=== PATIENT | male | born 1945 | race Caucasian/White ===

== ENCOUNTER 2019-01-15 08:54 | Emergency (ER) | payer MEDICARE ==
[2019-01-15 09:14] VITALS: BP 138/95
[2019-01-15] MEDS ORDERED: LIDOCAINE 2% 10 ML MDV SUBQ STA (09:45)
--- NOTE | 2019-01-15 09:52 | ED Physician Documentation ---
History of Present Illness - Stated complaint Stated Complaint: LT PINKY PX - Chief complaint Chief Complaint: General - History obtained from History obtained from: Patient - History of Present Illness Pain level max: 4 Pain level now: 3 - Additonal information Additional information: 73-year-old male states that he accidentally caught his left pinky and a car door a few days ago. Now has redness and swelling to the cuticle. No fevers. Nothing makes it better or worse. 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/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 Derm: Skin cancer surgery - Present Medications Home Medications: Ambulatory Orders Medication Instructions Recorded Confirmed Atenolol 05/02/13 05/02/13 Ciprofloxacin [Cipro] 500 mg PO BID #20 tablet 05/02/13 Doxazosin [Cardura] 05/02/13 05/02/13 Omeprazole [PriLOSEC] 05/02/13 05/02/13 Simvastatin [Zocor] 05/02/13 05/02/13 amLODIPine [Norvasc] 05/02/13 05/02/13 Fluorouracil [Efudex] TOP 05/05/13 05/05/13 Clindamycin HCl [Clindamycin 300MG 300 mg PO Q6H #28 capsule 01/15/19 CAP] - Allergies Allergies/Adverse Reactions: Allergies Allergy/AdvReac Type Severity Reaction Status Date / Time Penicillins Allergy Severe Unknown Verified 05/02/13 21:10 - Social History Does the pt smoke?: No Smoking Status: Never smoker Does the pt drink ETOH?: Yes Does the pt have substance abuse?: No - Immunizations Immunizations are current?: Yes - POLST Patient has POLST: No POLST Status: Full Code PD ED PE NORMAL - Vitals Vital signs reviewed: Yes - General General: Alert and oriented X 3, No acute distress - HEENT HEENT: Moist mucous membranes - Derm Derm: Warm and dry - Extremities Extremities: Other (Left fifth digit with redness and swelling around the cuticle. NVI) - Neuro Neuro: Alert and oriented X 3 Results - Vitals Vitals: Vital Signs - 24 hr 01/15/19 09:12 Temperature 36.8 C Heart Rate 74 Respiratory 16 Rate Blood Pressure 138/95 H O2 Saturation 97 Oxygen O2 Source Room air Procedures - Abscess I&D (location) paronychia, L 5th digit Preparation: Lidocaine 2 % Incision: Incised with scalpel, Purulent drainage Other: Pt tolerated well, Dressing applied, Antibiotic prescribed PD MEDICAL DECISION MAKING - ED course Complexity details: considered differential, d/w patient ED course: Patient with a left fifth digit paronychia. Incised and drained. Tolerated well. Will place on antibiotics for home. Patient counseled regarding signs and symptoms for which I believe and urgent re-evaluation would be necessary. Patient with good understanding of and agreement to plan and is comfortable going home at this time This document was made in part using voice recognition software. While efforts are made to proofread this document, sound alike and grammatical errors may occur. Departure - Departure Disposition: 01 Home, Self Care Clinical Impression: Paronychia Condition: Good Instructions: ED Fingernail Infec Follow-Up: Provider,Other [Primary Care Provider] - Within 1 week Prescriptions: Clindamycin HCl [Clindamycin 300MG CAP] 300 mg PO Q6H #28 capsule Comments: Take all antibiotics until gone. Return if you worsen. You can use warm soaks 2-3 times a day as this will help to remove the infection. Discharge Date/Time: 01/15/19 10:06
== END 2019-01-15 10:06 | disposition home or self-care (01) ==
LOC: ED 08:54
DX: L03.012 Cellulitis of left finger (principal); I10 Essential (primary) hypertension
CPT/HCPCS: 26010

== ENCOUNTER 2019-06-09 15:53 | Emergency (ER) | payer MEDICARE ==
[2019-06-09 16:33] LABS: BASOPHILS % (AUTO) 0.5 %; EOSINOPHILS # (AUTO) 0.1 10^3/uL (0.0-0.7); EOSINOPHILS % (AUTO) 1.1 %; HGB - HEMOGLOBIN 16.8 g/dL (14.0-18.0); LYMPHOCYTES # (AUTO) 1.2 10^3/uL (1.5-3.5); LYMPHOCYTES % (AUTO) 15.9 %; MEAN CORPUSCULAR HEMOGLOBIN 33.7 pg (27.0-31.0); MEAN CORPUSCULAR HGB CONC 34.9 g/dL (32.0-36.0); MEAN CORPUSCULAR VOLUME 96.6 fL (80.0-94.0); MEAN PLATELET VOLUME 9.7 fL (7.4-11.4); MONOCYTES # (AUTO) 1.2 10^3/uL (0.0-1.0); MONOCYTES % (AUTO) 16.7 %; NEUTROPHILS # (AUTO) 4.8 10^3/uL (1.5-6.6); NEUTROPHILS % (AUTO) 65.1 %; PLT - PLATELET COUNT 146 10^3/uL (130-450); RED BLOOD COUNT 4.99 10^6/uL (4.70-6.10); RED CELL DISTRIBUTION WIDTH 13.1 % (12.0-15.0); WHITE BLOOD COUNT 7.4 x10^3/uL (4.8-10.8)
--- NOTE | 2019-06-09 16:34 | ED Physician Documentation ---
History of Present Illness - Stated complaint Stated Complaint: STROKE LIKE SYMPTOMS - Chief complaint Chief Complaint: Neuro - History obtained from History obtained from: Patient - Additonal information Additional information: Patient comes emergency department complaining of a possible stroke yesterday. Patient states that he woke up in the morning yesterday around 830 with a left temporal headache and noted that he was having difficulty trying to refill a prescription over the phone. He states that he also was having trouble looking things up on the computer because the task seemed confusing. Patient states that he did not have any focal weakness. He states he was able to move all of his extremities without difficulty, and seemed coordinated except that he felt somewhat lightheaded and had to be careful when he walked because of this. Patient denies any chest pain or shortness of breath. No facial droop, visual changes, or difficulty swallowing. He did note some difficulty and stuttering when trying to get his words out. Patient states that the symptoms lasted in earnest for about 6 hours and then began to slowly subside. He states that by the time he went to bed last night, he was feeling mostly back to normal. Today, patient states he has only a faint headache in his left hoahaoism but otherwise feels better. He states this is never happened to him before. He states the only other neurologic symptom he had venously was when he developed a mild headache and flashers in both of his eyes a couple of years ago. He states that episode lasted about 10 minutes and then resolved on its own. Patient is not on aspirin. He has a history of hypertension and hyperlipidemia. He states that his blood pressure is sometimes controlled with his current regimen of atenolol and amlodipine, but that he often runs high. The patient states he did not come in yesterday because he really did not want to come to the emergency department. He states he is here because his doctor told him that he was at risk of having another stroke and he should come get checked out. His doctor had him take an aspirin today, which the patient did. Review of Systems Ten Systems: 10 systems reviewed and negative Constitutional: reports: Reviewed and negative Eyes: reports: Reviewed and negative Ears: reports: Reviewed and negative Nose: reports: Reviewed and negative Throat: reports: Reviewed and negative Cardiac: reports: Reviewed and negative Respiratory: reports: Reviewed and negative GI: reports: Reviewed and negative : reports: Reviewed and negative Skin: reports: Reviewed and negative Musculoskeletal: reports: Reviewed and negative Neurologic: reports: Reviewed and negative Psychiatric: reports: Reviewed and negative Endocrine: reports: Reviewed and negative Immunocompromised: reports: Reviewed and negative PD PAST MEDICAL HISTORY - Past Medical History Cardiovascular: Hypertension, High cholesterol Respiratory: Pneumonia Endocrine/Autoimmune: None GI: GERD : Nocturia HEENT: None Psych: None Musculoskeletal: None Derm: None - Past Surgical History 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/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 Derm: Skin cancer surgery - Present Medications Home Medications: Ambulatory Orders Medication Instructions Recorded Confirmed Ciprofloxacin [Cipro] 500 mg PO BID #20 tablet 05/02/13 Doxazosin [Cardura] 05/02/13 05/02/13 Omeprazole [PriLOSEC] 05/02/13 05/02/13 Simvastatin [Zocor] 05/02/13 05/02/13 amLODIPine [Norvasc] 05/02/13 05/02/13 atenoloL [Atenolol] 05/02/13 05/02/13 Fluorouracil [Efudex] TOP 05/05/13 05/05/13 Clindamycin HCl [Clindamycin 300MG 300 mg PO Q6H #28 capsule 01/15/19 CAP] Aspirin Chewable [St Alvino 81 mg PO DAILY 60 Days #60 tablet 06/09/19 Aspirin] - Allergies Allergies/Adverse Reactions: Allergies Allergy/AdvReac Type Severity Reaction Status Date / Time Penicillins Allergy Severe Unknown Verified 06/09/19 16:06 - Social History Does the pt smoke?: No Smoking Status: Never smoker Does the pt drink ETOH?: Yes Does the pt have substance abuse?: No - Immunizations Immunizations are current?: Yes - POLST Patient has POLST: No POLST Status: Full Code PD ED PE NORMAL - Vitals Vital signs reviewed: Yes - General General: Alert and oriented X 3, No acute distress, Well developed/nourished - HEENT HEENT: Atraumatic, PERRL, EOMI, Moist mucous membranes - Neck Neck: Supple, no meningeal sign - Cardiac Cardiac: RRR, No murmur - Respiratory Respiratory: No respiratory distress, Clear bilaterally - Abdomen Abdomen: Soft, Non tender, Non distended - Derm Derm: Normal color, Warm and dry, No rash - Extremities Extremities: No deformity, No edema - Neuro Neuro: Alert and oriented X 3, dermatologist 2-12 intact, No motor deficit, No sensory deficit, Normal speech, Other (NIHSS 0) - Psych Psych: Normal mood, Normal affect Results - Vitals Vitals: Vital Signs - 24 hr 06/09/19 06/09/19 06/09/19 15:55 16:23 16:30 Temperature 36.3 C L Heart Rate 72 64 58 L Respiratory 16 16 16 Rate Blood Pressure 172/103 H 152/90 H 140/88 H O2 Saturation 99 98 97 06/09/19 06/09/19 17:14 18:22 Temperature Heart Rate 60 67 Respiratory 16 16 Rate Blood Pressure 144/84 H 139/78 H O2 Saturation 97 97 Oxygen O2 Source Room air - EKG (time done) 1605 Rate: Rate (enter#) (65) Rhythm: NSR [place]: Normal Intervals: Normal [place] QRS: Normal Ischemia: Other (Borderline ST elevation, anterolateral leads. No appearance of STEMI.) Compare to prior EKG: Old EKG unavailable Computer interpretation: Agree with computer - Labs Labs: Laboratory Tests 06/09/19 06/09/19 16:00 16:00 WBC 7.4 RBC 4.99 Hgb 16.8 Hct 48.2 MCV 96.6 H MCH 33.7 H MCHC 34.9 RDW 13.1 Plt Count 146 MPV 9.7 Neut # (Auto) 4.8 Lymph # (Auto) 1.2 L Tift # (Auto) 1.2 H Eos # (Auto) 0.1 Baso # (Auto) 0.0 Absolute Nucleated RBC 0.00 Nucleated RBC % 0.0 Sodium 126 L Potassium 4.1 Chloride 92 L Carbon Dioxide 25 Anion Gap 9.0 BUN 11 Creatinine 0.8 Estimated GFR (MDRD) 95 Glucose 98 Calcium 8.9 Total Bilirubin 0.9 AST 24 ALT 27 Alkaline Phosphatase 51 Total Protein 7.5 Albumin 4.5 Globulin 3.0 Albumin/Globulin Ratio 1.5 Lipase 16 L - Rads (name of study) carotid doppler US Radiology: Final report received, See rad report (Final radiologist impression: Right greater than left carotid bulb calcified; bilateral carotid artery plaquing. In the right carotid artery there are no elevated carotid artery velocities to suggest hemodynamically significant stenosis. In the left carotid artery there are no elevated carotid artery velocities to suggest hemodynamically significant stenosis. Normal antegrade flow is present in bilateral vertebral arteries.) CT brain Radiology: Final report received, EMP read indepedently, See rad report, Other (Final radiologist impression: Mild senescent changes without evidence of acute intracranial abnormality.) PD MEDICAL DECISION MAKING - ED course Complexity details: reviewed results, re-evaluated patient, considered differential, d/w patient ED course: Patient was asymptomatic at time of presentation to the emergency department, but I felt he should be worked up with CT scan of the head, as well as carotid imaging. Laboratory studies were also performed, as well as EKG. Labs were unremarkable. CT showed age-related changes but no evidence of recent ischemia. Carotid imaging by duplex ultrasound showed mild bilateral carotid artery plaquing, but no hemodynamically significant stenosis on either side. The patient was in normal sinus rhythm on his EKG and on his monitor reading for his entire stay in the ED, and had no murmur on exam. He did not know of any history of atrial fibrillation or other rhythm abnormalities at this point in time, and I felt it was very unlikely that the patient has a mural thrombus in his cardiac chambers. As such, I felt the patient could follow-up with his primary care physician to have this study ordered in the near future. The patient had been asymptomatic for nearly 24 hours. I discussed with him that at this point, the most important aspect of care is prevention. We have had a long discussion about specifics of this, including the need for the patient to take an aspirin every day and to get better control of his blood pressure, which has been running chronically high. The patient will need to work closely with his primary care physician to have a better regimen for blood pressure control. The patient states that he was on a higher dose of amlodipine, but it was causing swelling around his ankles, so the dose was decreased. I have also discussed with the patient that it is important to eat a diet that is low in cholesterol and trans-/saturated fats for cardiovascular health optimization. We discussed the benefits of exercise, even a 20-minute walk several days a week, on cardiovascular health, as well. I have encouraged the patient to work with his primary doctor to devise a plan to help improve his lifestyle so that he can optimize cardiovascular health and minimize chances of another stroke. I have also discussed with him that is very important if he has any further episodes like he had yesterday, that he come to the emergency department immediately for care, as early intervention can prevent permanence of symptoms. Departure - Departure Disposition: 01 Home, Self Care Clinical Impression: Stroke-like symptoms Condition: Stable Instructions: ED Transient Ischemic Attack Prescriptions: Aspirin Chewable [St Alvino Aspirin] 81 mg PO DAILY 60 Days #60 tablet Comments: Your labs and CT look good. There is no evidence of lasting damage from a stroke or stroke-like event. The ultrasound of your carotid arteries shows minimal narrowing of the arteries and good flow. You have a normal heart rhythm, and likelihood of a clot along the heart wall that has broken off and lodged in your brain circulation is unlikely. At this point in time, your symptoms have completely resolved, and admission to the hospital will not provide any further benefit. The most important aspect of your care at this point is to use preventative measures to decrease your risk of another stroke in the near or distant future. These include taking an aspirin each day, attaining good blood pressure control, and making lifestyle alterations in both diet and exercise to help with your cardiovascular health. You will need to follow up with your doctor in the near future to discuss the best steps to take in attaining better blood pressure control, as well as an analysis of any lifestyle factors that can be changed to optimize your health. For now, you will need to start aspirin on a daily basis in order to prevent further strokes. Please aim to incorporate even mild exercise (walking, swimming) into your day at least several times a week for at least 20 minutes a day, if you are able. Speak with your primary doctor about the best dietary plan for your cardiovascular health. If you develop further stroke-like symptoms, please return to the emergency dept immediately. Discharge Date/Time: 06/09/19 19:05
[2019-06-09 16:40] LABS: ALBUMIN 4.5 g/dL (3.2-5.5); ALBUMIN/GLOBULIN RATIO 1.5 (1.0-2.2); BILIRUBIN,TOTAL 0.9 mg/dL (0.2-1.0); CALCIUM 8.9 mg/dL (8.5-10.3); CREATININE 0.8 mg/dL (0.6-1.2); TOTAL PROTEIN 7.5 g/dL (6.7-8.2)
--- NOTE | 2019-06-09 17:31 | CT Report ---
Reason: stroke Procedure Date: 06/09/2019 Accession Number: [id number] / [id number] Procedure: CT - HEAD WO CPT Code: Final Report FULL RESULT: EXAM: CT HEAD EXAM DATE: 06/09/2019 04:51 PM. CLINICAL HISTORY: Stroke. Bilateral hand numbness. Left temporal headache. COMPARISON: None. TECHNIQUE: Multiaxial CT images were obtained from the foramen magnum to the vertex. Reformats: Sagittal and coronal. IV contrast: None. In accordance with CT protocol optimization, one or more of the following dose reduction techniques were utilized for this exam: automated exposure control, adjustment of mA and/or KV based on patient size, or use of iterative reconstructive technique. FINDINGS: Parenchyma: No intraparenchymal hemorrhage. No evidence of mass, midline shift or CT findings of acute infarction. Borrego-white differentiation is distinct. Diffuse mild chronic microangiopathic white matter changes are evident. Extraaxial Spaces: Normal for age. No subdural or epidural collections identified. Ventricles: The ventricles and cortical sulci are enlarged, consistent with age-related tissue loss. Sinuses: Imaged paranasal sinuses, orbits, and mastoids show no significant abnormality. Bones: No evidence of fracture or calvarial defect. Other: None. IMPRESSION: Mild senescent changes without evidence of acute intracranial abnormality. RADIA
[2019-06-09 18:23] VITALS: BP 139/78
--- NOTE | 2019-06-09 18:43 | Ultrasound Report ---
Reason: stroke Procedure Date: 06/09/2019 Accession Number: [id number] / [id number] Procedure: US - Carotid Doppler Complete CPT Code: Final Report FULL RESULT: EXAM: BILATERAL CAROTID AND VERTEBRAL ARTERY DUPLEX DOPPLER ULTRASOUND: EXAM DATE: 06/09/2019 06:04 PM CLINICAL HISTORY: Stroke. COMPARISON: None. TECHNIQUE: Grayscale imaging, color Doppler, and duplex spectral Doppler were used to evaluate the carotid and vertebral arteries bilaterally. Static images were obtained. FINDINGS: There is large calcified and shadowing plaque within the right carotid bulb. There is mild to moderate calcified plaque in the left carotid bulb and proximal internal carotid artery. There is mild right internal carotid plaque. No significant velocity elevation. VELOCITIES (cm/s): Right CCA mid: PSV 64.7 cm/s CCA dist: PSV 68.8 cm/s ICA prox: PSV 91.8 cm/s, EDV 21.5 cm/s ICA mid: PSV 92.8 cm/s, EDV 25.6 cm/s ICA dist: PSV 81.4 cm/s, EDV 22.1 cm/s ECA: PSV 86.6 cm/s Vert: PSV 41.7 cm/s ICA/CCA: 1.3 Left CCA mid: PSV 81.5 cm/s CCA dist: PSV 56.4 cm/s ICA prox: PSV 65.6 cm/s, EDV 19.1 cm/s ICA mid: PSV 70.6 cm/s, EDV 20 cm/s ICA dist: PSV 37.4 cm/s, EDV 10.7 cm/s ECA: PSV 142 cm/s Vert: PSV 60 cm/s ICA/CCA: .9 ICA diameter stenosis: Right: <50% by velocity and <70% by NASCET criteria. Left: <50% by velocity and <70% by NASCET criteria. IMPRESSION: 1. Right greater than left carotid bulb calcified bilateral carotid artery plaquing. 2. In the right carotid artery there are no elevated carotid artery velocities to suggest hemodynamically significant stenosis. 3. In the left carotid artery there are no elevated carotid artery velocities to suggest hemodynamically significant stenosis. 4. Normal antegrade flow is present in bilateral vertebral arteries. General Recommendations: Stenosis =50% ICA - Follow-up ultrasound 6-12 months Stenosis <50% ICA - High Risk Patient with plaque - Follow-up ultrasound 1-2 years Normal Study but High Risk Patient - Follow-up ultrasound 3-5 years Management recommendations and diagnostic criteria are based on current IAC endorsed standards in Carotid Artery Stenosis: Grayscale and Doppler Ultrasound Diagnosis. Validated velocity measurements with angiographic measurements and velocity criteria are extrapolated from diameter data as defined by the Society of Radiologists in Ultrasound Consensus Conference Radiology 2003; 229;340-346. RADIA
== END 2019-06-09 19:05 | disposition home or self-care (01) ==
LOC: ED 15:53
DX: R51 Headache (principal); R42 Dizziness and giddiness; R47.02 Dysphasia; I10 Essential (primary) hypertension
CPT/HCPCS: 36415; 70450; 80053; 83690; 85025; 93005; 93880; 99284

== ENCOUNTER 2023-04-23 21:28 | Outpatient (CLI) | payer MEDICARE | END 2023-04-23 21:29 | disposition critical access hospital (66) | LOC: EMS 21:28 | DX: R53.1 Weakness (principal); R53.83 Other fatigue; R05.9 Cough, unspecified; R53.81 Other malaise; R52 Pain, unspecified; R19.7 Diarrhea, unspecified | CPT/HCPCS: A0425; A0429 ==

== ENCOUNTER 2023-04-23 22:02 | Inpatient (IN) | payer MEDICARE ==
[2023-04-23 22:36] LABS: ALBUMIN 2.8 g/dL (3.2-5.5); ALBUMIN/GLOBULIN RATIO 0.8 (1.0-2.2); ALKALINE PHOSPHATASE 67 IU/L (42-121); ALT ALANINE AMINOTRANSFERASE 15 IU/L (10-60); AST ASPARTATE AMINOTRANSFERASE 17 IU/L (10-42); BUN - BLOOD UREA NITROGEN 19 mg/dL (6-20); CALCIUM 8.4 mg/dL (8.5-10.3); CARBON DIOXIDE - CO2 23 mmol/L (21-32); CHLORIDE 88 mmol/L (101-111); GFR - MDRD 72 (>89); GLUCOSE 103 mg/dL (74-104); LIPASE < 10 U/L (11-82); POTASSIUM 3.9 mmol/L (3.5-4.5); SODIUM 121 mmol/L (135-145); TOTAL PROTEIN 6.3 g/dL (6.4-8.9)
[2023-04-23] MEDS: SODIUM CHLORIDE 0.9% 1,000 ML IV STA (23:17)
[2023-04-23 23:23] LABS: EOSINOPHILS % (AUTO) 0.1 %; HGB - HEMOGLOBIN 13.6 g/dL (14.0-18.0); RED CELL DISTRIBUTION WIDTH 14.4 % (12.0-15.0)
[2023-04-23 23:25] LABS: B. PARAPERTUSSIS- RESP PCR PAN NOT DETECTED; B. PERTUSSIS- RESP PCR PANEL NOT DETECTED; C. PNEUMONIAE- RESP PCR PANEL NOT DETECTED; CORONAVIRUS 229E-RESP PCR NOT DETECTED; CORONAVIRUS HKU1-RESP PCR NOT DETECTED; CORONAVIRUS NL63-RESP PCR NOT DETECTED; CORONAVIRUS OC43-RESP PCR NOT DETECTED; HUMAN METAPNEUMOVIRUS NOT DETECTED; INFLUENZA A- RESP PCR PANEL NOT DETECTED; INFLUENZA B - RESP PCR PANEL NOT DETECTED; M. PNEUMONIAE- RESP PCR PANEL NOT DETECTED; PARAINFLUENZA VIRUS 1 NOT DETECTED; PARAINFLUENZA VIRUS 2 NOT DETECTED; PARAINFLUENZA VIRUS 3 NOT DETECTED; PARAINFLUENZA VIRUS 4 NOT DETECTED; RHINOVIRUS/ENTEROVIRUS DETECTED; RSV- RESP PCR PANEL NOT DETECTED; SARS-CoV-2 -RESP PCR PANEL NOT DETECTED
[2023-04-23 23:26] LABS: BASOPHILS % (AUTO) 0.4 %; HCT - HEMATOCRIT 38.2 % (42.0-52.0); LYMPHOCYTES % (AUTO) 3.3 %; MEAN CORPUSCULAR HEMOGLOBIN 32.6 pg (27.0-31.0); MEAN CORPUSCULAR HGB CONC 35.6 g/dL (32.0-36.0); MEAN CORPUSCULAR VOLUME 91.6 fL (80.0-94.0); MEAN PLATELET VOLUME 9.3 fL (7.4-11.4); PLT - PLATELET COUNT 319 10^3/uL (130-450); RED BLOOD COUNT 4.17 10^6/uL (4.70-6.10); WHITE BLOOD COUNT 15.3 x10^3/uL (4.8-10.8)
[2023-04-23 23:29] LABS: SLIDE REVIEW? Indicated
[2023-04-23 23:30] LABS: ABNORMAL LYMPHS % (MANUAL) 0 %
[2023-04-23 23:45] LABS: BAND NEUTROPHILS % (MANUAL) 12 %; DIFFERENTIAL COMMENT MANUAL DIFFERENTIAL; LYMPHOCYTES # (MANUAL) 0.5 10^3/uL (1.5-3.5); LYMPHOCYTES % (MANUAL) 3 %; MONOCYTES # (MANUAL) 0.5 10^3/uL (0.0-1.0); NEUTROPHILS # (MANUAL) 14.4 10^3/uL (1.5-6.6); PLATELET ESTIMATE, MANUAL NORMAL (130-450,000) (NORMAL); RBC MORPHOLOGY (MULTIPLE) NORMAL APPEARANCE (NORMAL); WBC MORPHOLOGY (MULTIPLE) 1+ TOXIC GRANULATION (NORMAL)
[2023-04-24] MEDS: SODIUM CHLORIDE 0.9% 1,000 ML IV STA ×3 (00:05→17:57)
[2023-04-24 01:25] LABS: BILIRUBIN,URINE NEGATIVE (NEGATIVE); GLUCOSE, URINE (UA) NEGATIVE (NEGATIVE); KETONES,URINE (UA) 15 mg/dL (NEGATIVE); LEUKOCYTE ESTERASE, URINE NEGATIVE (NEGATIVE); NITRITE,URINE NEGATIVE (NEGATIVE); OCCULT BLOOD,URINE MODERATE (NEGATIVE); PROTEIN,URINE NEGATIVE (NEGATIVE); UROBILINOGEN,URINE 0.2 (NORMAL) E.U./dL (NORMAL)
[2023-04-24 01:38] LABS: CLARITY,URINE CLEAR (CLEAR)
[2023-04-24 01:40] LABS: BACTERIA,URINE None Seen /HPF (None Seen); SQUAMOUS EPITHELIAL CELL,UR RARE Squamous (<= Few); WBC,URINE 0-3 /HPF (0-3)
[2023-04-24] MEDS: ACETAMINOPHEN 325 MG TABLET PO STA ×3 (02:26→16:38)
[2023-04-24] MEDS: SODIUM CHLORIDE 0.9% 500 ML IV STA (02:27)
[2023-04-24] MEDS: guaiFENesin/DEXTROMETHORPHAN 10 ML UDC PO STA (02:42)
--- NOTE | 2023-04-24 03:18 | ED Physician Documentation ---
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 patient was traveling in [place] for the past several weeks and returned today. he reportedly fell on the airplane but denies ht, loc, or anticoagulant use. denies fever. +myalgias Review of Systems Constitutional: reports: Chills, Myalgias, Fatigue. denies: Fever Ears: denies: Ear pain Nose: reports: Congestion Throat: reports: Sore throat Cardiac: denies: Chest pain / pressure Respiratory: reports: Cough. denies: Dyspnea GI: reports: Diarrhea. 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 HEENT: Tonsil/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 Derm: Skin cancer surgery - Present Medications Home Medications: Ambulatory Orders Medication Instructions Recorded Confirmed Ciprofloxacin [Cipro] 500 mg PO BID #20 tablet 05/02/13 Doxazosin [Cardura] 4 mg PO DAILY 05/02/13 04/24/23 Omeprazole [PriLOSEC] 20 mg PO DAILY 05/02/13 04/24/23 Simvastatin [Zocor] 5 mg PO DAILY 05/02/13 04/24/23 amLODIPine [Norvasc] 2.5 mg PO DAILY 05/02/13 04/24/23 atenoloL [Atenolol] 25 mg PO DAILY 05/02/13 04/24/23 Fluorouracil [Efudex] TOP 05/05/13 05/05/13 Clindamycin HCl [Clindamycin 300MG 300 mg PO Q6H #28 capsule 01/15/19 CAP] Aspirin Chewable [St Alvino 81 mg PO DAILY 60 Days #60 tablet 06/09/19 Aspirin] - Allergies Allergies/Adverse Reactions: Allergies Allergy/AdvReac Type Severity Reaction Status Date / Time Penicillins Allergy Severe Unknown Verified 04/23/23 22:15 - Social History Does the pt smoke?: No Smoking Status: Never smoker Does the pt drink ETOH?: Yes Does the pt have substance abuse?: No - Immunizations Immunizations are current?: Yes - POLST Patient has POLST: No POLST Status: Full Code PD ED PE NORMAL - Vitals Vital signs reviewed: Yes - General General: Alert and oriented X 3, No acute distress, Well developed/nourished - HEENT HEENT: Atraumatic, PERRL, EOMI, Moist mucous membranes, Pharynx benign - Neck Neck: Supple, no meningeal sign - Cardiac Cardiac: RRR - Respiratory Respiratory: No respiratory distress, Clear bilaterally - Abdomen Abdomen: Non tender, Non distended - Derm Derm: Normal color, Warm and dry - Extremities Extremities: No edema - Neuro Neuro: Alert and oriented X 3, No motor deficit, No sensory deficit Results - Vitals Vitals: Vital Signs - 24 hr 04/23/23 04/24/23 04/24/23 22:03 00:14 02:00 Temperature 36.6 C Heart Rate 90 110 H 87 Respiratory 18 18 16 Rate Blood Pressure 146/76 H 160/82 H 154/88 H O2 Saturation 98 95 98 Oxygen O2 Source Room air - Labs Labs: Laboratory Tests 04/23/23 04/23/23 04/23/23 22:13 22:13 22:13 WBC 15.3 H RBC 4.17 L Hgb 13.6 L Hct 38.2 L MCV 91.6 MCH 32.6 H MCHC 35.6 RDW 14.4 Plt Count 319 MPV 9.3 Neut # (Auto) Not Reportable Lymph # (Auto) Not Reportable [place] # (Auto) Not Reportable Eos # (Auto) Not Reportable Baso # (Auto) Not Reportable Absolute Nucleated RBC Not Reportable Total Counted 100 Band Neuts % (Manual) 12 H Abnorm Lymph % (Manual) 0 Nucleated RBC % Not Reportable Neutrophils # (Manual) 14.4 H Lymphocytes # (Manual) 0.5 L Monocytes # (Manual) 0.5 Eosinophils # (Manual) 0.0 Basophils # (Manual) 0.0 Differential Comment MANUAL DIFFERENTIAL Manual Slide Review Indicated WBC Morphology 1+ TOXIC GRANULATION Platelet Estimate NORMAL (130-450,000) RBC Morph Micro Appear NORMAL APPEARANCE Sodium 121 L Potassium 3.9 Chloride 88 L Carbon Dioxide 23 Anion Gap 10.0 BUN 19 Creatinine 1.0 Estimated GFR (MDRD) 72 L Glucose 103 Calcium 8.4 L Total Bilirubin 1.0 AST 17 ALT 15 Alkaline Phosphatase 67 Total Protein 6.3 L Albumin 2.8 L Globulin 3.5 Albumin/Globulin Ratio 0.8 L Lipase < 10 L Urine Color Urine Clarity Urine pH Ur Specific [place] Urine Protein Urine Glucose (UA) Urine Ketones Urine Occult Blood Urine Nitrite Urine Bilirubin Urine Urobilinogen Ur Leukocyte Esterase Urine RBC Urine WBC Ur Squamous Epith Cells Urine Bacteria Ur Microscopic Review Urine Culture Comments Nasal Adenovirus (PCR) NOT DETECTED Nasal B. parapertussis DNA (PCR) NOT DETECTED Nasal Coronavir 229E PCR NOT DETECTED Nasal Coronavir HKU1 PCR NOT DETECTED Nasal Coronavir NL63 PCR NOT DETECTED Nasal Coronavir OC43 PCR NOT DETECTED Nasal Enterovir/Rhinovir PCR DETECTED A Nasal Influenza B PCR NOT DETECTED Nasal Influenza A PCR NOT DETECTED Nasal Parainfluen 1 PCR NOT DETECTED Nasal Parainfluen 2 PCR NOT DETECTED Nasal Parainfluen 3 PCR NOT DETECTED Nasal Parainfluen 4 PCR NOT DETECTED Nasal RSV (PCR) NOT DETECTED Nasal B.pertussis DNA PCR NOT DETECTED Nasal C.pneumoniae (PCR) NOT DETECTED Robin Human Metapneumo PCR NOT DETECTED Nasal M.pneumoniae (PCR) NOT DETECTED Nasal SARS-CoV-2 (PCR) NOT DETECTED 04/24/23 04/24/23 00:55 02:56 WBC RBC Hgb Hct MCV MCH MCHC RDW Plt Count MPV Neut # (Auto) Lymph # (Auto) [place] # (Auto) Eos # (Auto) Baso # (Auto) Absolute Nucleated RBC Total Counted Band Neuts % (Manual) Abnorm Lymph % (Manual) Nucleated RBC % Neutrophils # (Manual) Lymphocytes # (Manual) Monocytes # (Manual) Eosinophils # (Manual) Basophils # (Manual) Differential Comment Manual Slide Review WBC Morphology Platelet Estimate RBC Morph Micro Appear Sodium 124 L Potassium Chloride Carbon Dioxide Anion Gap BUN Creatinine Estimated GFR (MDRD) Glucose Calcium Total Bilirubin AST ALT Alkaline Phosphatase Total Protein Albumin Globulin Albumin/Globulin Ratio Lipase Urine Color YELLOW Urine Clarity CLEAR Urine pH 6.0 Ur Specific [place] 1.010 Urine Protein NEGATIVE Urine Glucose (UA) NEGATIVE Urine Ketones 15 H Urine Occult Blood MODERATE H Urine Nitrite NEGATIVE Urine Bilirubin NEGATIVE Urine Urobilinogen 0.2 (NORMAL) Ur Leukocyte Esterase NEGATIVE Urine RBC 11-25 H Urine WBC 0-3 Ur Squamous Epith Cells RARE Squamous Urine Bacteria None Seen Ur Microscopic Review INDICATED Urine Culture Comments NOT INDICATED Nasal Adenovirus (PCR) Nasal B. parapertussis DNA (PCR) Nasal Coronavir 229E PCR Nasal Coronavir HKU1 PCR Nasal Coronavir NL63 PCR Nasal Coronavir OC43 PCR Nasal Enterovir/Rhinovir PCR Nasal Influenza B PCR Nasal Influenza A PCR Nasal Parainfluen 1 PCR Nasal Parainfluen 2 PCR Nasal Parainfluen 3 PCR Nasal Parainfluen 4 PCR Nasal RSV (PCR) Nasal B.pertussis DNA PCR Nasal C.pneumoniae (PCR) Robin Human Metapneumo PCR Nasal M.pneumoniae (PCR) Nasal SARS-CoV-2 (PCR) PD Medical Decision Making - ED course ED course: 77yM presents with viral URI symptoms X 3 weeks per his report while traveling internationally. cbc, abdominal panel, u/a, cxr, rvp ordered. patient with leukocytosis (wbc 15.3), enterovirus/rhinovirus + on pcr. also with sodium 121, which is lower than his usual baseline of 130. Given the diarrhea, consider dehydration as potential cause. 2.5L normal saline provided. plan to repeat sodium. Patient was provided with tylenol for body aches and guaifenesin/dextromethorphan for cough with improvement. cxr pending. Repeat sodium pending. Patient with persistent hyponatremia 124 s/p 2.5 L normal saline. additional 250cc/ hour ns ordered. CXR wet read shows bibasilar pneumonia. antibiotics and blood cultures/lactate ordered. No beds available therefore plan is to endorse to incoming daytime ED MD at 7am shift change to admit when a bed becomes available. Departure - Departure Clinical Impression: Rhinovirus, Enterovirus infection, Hyponatremia, Pneumonia Condition: Fair Instructions: Hyponatremia Dc, ED Viral Syndrome Comments: You were seen in the emergency department for rhinovirus/enterovirus infection. Your labwork showed a low sodium of 121, likely caused by dehydration in combination with your salt-wasting medical condition. Please follow-up with your primary care provider and return to the emergency department if you have any new or worsening symptoms or other concerns. Forms: PCP List
[2023-04-24] MEDS: levoFLOXacin 750 MG/150 ML 750 MG/150 ML BAG IV STA (05:04)
--- NOTE | 2023-04-24 08:23 | XRAY Report ---
PROCEDURE: Chest 1V INDICATIONS: cough TECHNIQUE: One view of the chest was acquired. COMPARISON: Chest/ribs radiographs 02/11/2009 FINDINGS: Surgical changes and devices: None. Lungs and pleura: Patchy opacities are seen in the mid to lower lung zones bilaterally with mild int erstitial prominence. Suspected small left pleural effusion. No right pleural effusion. No pneumothor ax. Mediastinum: Mediastinal contours appear normal. Heart size is normal. Bones and chest wall: No suspicious bony lesions. Overlying soft tissues appear unremarkable. IMPRESSION: Bibasilar opacities are suspicious for pneumonia, aspiration, or edema. Small left pleural effusion. There is no significant discrepancy when compared with the preliminary overnight report. Reviewed by: Harsh Laguna MD on 04/24/2023 8:22 AM [facility] Approved by: Harsh Laguna MD on 04/24/2023 8:22 AM [facility] Station ID: [id number]
[2023-04-24 11:42] LABS: CALCIUM 7.5 mg/dL (8.5-10.3); CREATININE 0.8 mg/dL (0.6-1.3); POTASSIUM 3.7 mmol/L (3.5-4.5)
[2023-04-24] MEDS: LOPERAMIDE 2 MG CAPSULE PO STA (17:27)
[2023-04-24] MEDS ORDERED: iohexoL-300 100 ML VIAL ONE (19:35)
--- NOTE | 2023-04-24 21:05 | CT Report ---
PROCEDURE: Angio Chest INDICATIONS: [place], tachycardic CONTRAST: 80mL Omni 300 TECHNIQUE: After the administration of intravenous contrast, 2 mm axial images were acquired from the pulmonary apices to the posterior costophrenic angles during the arterial phase. In addition, 1 mm lung kernel and 5 mm soft tissue kernel reconstructions were performed. 3-dimensional coronal oblique maximum int ensity projection (MIP) reformats, 8 mm axial MIP, and 5 mm coronal and sagittal MPR reformats were t hen performed through the thorax. For radiation dose reduction, the following was used: automated exp osure control, adjustment of mA and/or kV according to patient size. COMPARISON: Chest radiograph from earlier same day. FINDINGS: Image quality: Diagnostic. Study degraded by respiratory motion artifact. Large vessels: No filling defects within the opacified pulmonary arteries, accounting for motion and contrast timing. No evidence of acute aortic syndrome or aortic aneurysm. Lungs and pleura: Dense consolidation involving the bilateral lower lobes larger on the right with ai r bronchograms. Small bilateral pleural effusions, larger on the right. Compressive atelectasis. Patc hy consolidation involving the posterior aspect of the left upper lobe and right upper lobe. Similar finding in the right middle lobe. Perihilar airway thickening most pronounced in the bilateral lower lobes. No pneumothorax. Mediastinum: Heart size is normal. No pericardial effusion. No large vessel abnormality. No mediastin al adenopathy by size criteria. However, multiple reactive appearing lymph nodes are seen in the med iastinum and right hilar region. Atherosclerotic calcifications of the coronary arteries. Chest wall and lower neck: Thyroid is unremarkable. No axillary or supraclavicular adenopathy by size . Bones: No aggressive osseous abnormality. Upper Abdomen: Unremarkable. IMPRESSION: 1. No acute pulmonary embolus or evidence for acute right-sided heart strain. 2. Scattered bilateral consolidations most pronounced in the bilateral lower lobes. There is associat ed bilateral lower lobe airway thickening and air bronchograms. Small bilateral pleural effusions. Fi ndings may represent multiple focal pneumonia. Recommend follow-up chest CT 4-6 weeks after resolutio n of acute symptoms to document resolution. 3. Atherosclerosis. Reviewed by: Lazaro Duffy MD on 04/24/2023 9:04 PM PST Approved by: Laazro Duffy MD on 04/24/2023 9:04 PM PST Station ID: [id number]
[2023-04-24] MEDS: iohexoL-300 100 ML VIAL IVP ONE (21:26)
--- NOTE | 2023-04-24 22:56 | ED Physician Documentation ---
ED Addendum - Addendum Addendum: 04/24/23 22:47 Dr. Mulligan saw the patient during the day today and signed over care to me at 7pm shift change. CTA PE study was conducted and showed no PE but he does have multifocal pneumonia. He has been hypoxic intermittently during the day today and was 91% on RA when I discussed his CT results with him just now. Plan to admit for antibiotic and o2 monitoring. Disposition admit Condition fair Impression 1. multifocal pneumonia 2. rhinovirus/enterovirus 3. hypoxia 4. pleural effusion
--- NOTE | 2023-04-24 23:20 | HISTORY & PHYSICAL EXAMINATION ---
Chief Complaint - Chief Complaint Chief Complaint: weakness, falls, cough History of Present Illness - Admitted From Admitted From:: home - History Obtained From History obtained from: patient Exam Limitations: telemedicine - History of Present Illness HPI Comment/Other: Mr Flaherty is a 77 yo M with hx HTN, HLD, salt-wasting condition (details uncle ar, per patient he has chronic hyponatremia as a result). Presents to ER with complaints of generalized weakness, falls, cough. Onset 3 weeks ago. Started while he was in [place], returned Friday. He has been in the ER > 24 hours. He has been feeling tired, weak, de-sat to 89% on RA and placed on 2 L NC. He and his are both sick. 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 Pt reports he has been having chills, mild fever, denies n/v. Diarrhea x 1 week. He has not been on antibiotics. Denies cp, he does have shortness of breath. Pt states that he has difficulty with gait stability/balance at baseline. 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 HEENT: reports: Tonsil/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 Derm: reports: Skin cancer surgery - POLST Patient has POLST: No POLST Status: Full Code Meds/Allgy - Home Medications Home Medications: Ambulatory Orders Medication Instructions Recorded Confirmed Ciprofloxacin [Cipro] 500 mg PO BID #20 tablet 05/02/13 Doxazosin [Cardura] 4 mg PO DAILY 05/02/13 04/24/23 Simvastatin [Zocor] 5 mg PO DAILY 05/02/13 04/24/23 amLODIPine [Norvasc] 2.5 mg PO DAILY 05/02/13 04/24/23 atenoloL [Atenolol] 50 mg PO DAILY 05/02/13 04/24/23 Fluorouracil [Efudex] TOP 05/05/13 05/05/13 Clindamycin HCl [Clindamycin 300MG 300 mg PO Q6H #28 capsule 01/15/19 CAP] Aspirin Chewable [St Alvino 81 mg PO DAILY 60 Days #60 tablet 06/09/19 Aspirin] levoFLOXacin [Levofloxacin] 750 mg PO QDAC #14 tablet 04/24/23 - Allergies Allergies/Adverse Reactions: Allergies Allergy/AdvReac Type Severity Reaction Status Date / Time Penicillins Allergy Severe Unknown Verified 04/23/23 22:15 Review of Systems - Constitutional Constitutional: reports: Fatigue, Fever, Chills, Malaise, Weakness, Poor appetite. denies: Night sweats - Eyes Eyes: denies: Blurred vision - Ears, Nose & Throat Ears, Nose & Throat: denies: Ear pain, Hearing loss - Cardiovascular Cariovascular: reports: Palpitations, Lightheadedness, Exertional dyspnea. denies: Chest pain, Edema, Syncope - Respiratory Respiratory: reports: Cough, SOB at rest, SOB with exertion. denies: Sputum p roduction - Gastrointestinal Gastrointestinal: reports: Diarrhea. denies: Abdominal pain, Nausea, Vomiting - Genitourinary Genitourinary: denies: Dysuria, Frequency - Musculoskeletal Musculoskeletal: reports: Muscle aches - Integumentary Integumentary: denies: Rash, Pruritis - Neurological Neurological: reports: General weakness, Abnormal gait (baseline) - All Other Systems All Other Systems: reports: Reviewed and negative Exam - Vital Signs Reviewed Vital Signs: Yes Vital Signs: Vital Signs x48h Temp Pulse Resp BP Pulse Ox 04/24/23 19:20 84 20 147/74 H 97 04/24/23 19:00 100 20 156/87 H 95 04/24/23 18:15 100 20 141/100 H 97 04/24/23 17:57 112 H 25 H 90 L 04/24/23 16:22 36.5 C 04/24/23 16:00 80 15 178/82 H 98 - Physical Exam General Appearance: positive: No acute distress, Alert, Other (appears fatigued) Eyes Bilateral: positive: Normal inspection ENT: positive: ENT inspection nml Neck: positive: Nml inspection Respiratory: positive: Other (mild resp distress with speech noted) Skin: positive: Color nml, No rash Neurologic/Psychiatric: positive: Oriented x3, Mood/affect nml, Weakness Conclusion/Plan - Lab Results Lab results reviewed: Yes Fish Bones: 04/23/23 22:13 04/24/23 11:20 - Diagnostic Imaging Results Diagnostic Imaging Results: positive: Final report reviewed - Other Other Results/Comments: Acute hypoxic respiratory failure secondary to bilateral lower lobe community acquired pneumonia -Rhinovirus/Enterovirus + -Continue IV levaquin (tolerated, noted PCN allergy) -Follow up blood cultures -CTA neg for PE - f/u imaging in 6 weeks to ensure resolution -F/u procalcitonin -F/u CBC, BMP Chronic hyponatremia -Na 126, improved since being in ER -Continue gentle IVF hydration -Trend labs, repeat Na with a.m. labs HLD, statin HTN, BP elevated, resume home antihypertensives DVT ppx: Lovenox sc Full code Telemedicine Consult Details - Provider Location & Consult Time Telemedicine consultation conducted via videoconferencing?: Yes List names and roles of persons who participated in consult:: patient, Telemedicine provider location:: [place], [place]
[2023-04-24] MEDS ORDERED: SODIUM CHLORIDE FLUSH 0.9% 10 ML SYRINGE IVP PRN (23:31)
[2023-04-25] MEDS: SODIUM CHLORIDE 0.9% 1,000 ML IV SCH ×2 (01:13→14:59)
[2023-04-25] MEDS: SODIUM CHLORIDE FLUSH 0.9% 10 ML SYRINGE IVP SCH (01:15)
[2023-04-25] MEDS: guaiFENesin/DEXTROMETHORPHAN 10 ML UDC PO PRN (02:45)
[2023-04-25] MEDS: ACETAMINOPHEN 325 MG TABLET PO PRN (02:45)
[2023-04-25] MEDS: hydrALAZINE 10 MG TABLET PO ONE (02:45)
[2023-04-25 05:46] LABS: BASOPHILS % (AUTO) 0.2 %; EOSINOPHILS % (AUTO) 0.2 %; HGB - HEMOGLOBIN 12.5 g/dL (14.0-18.0); MEAN CORPUSCULAR HEMOGLOBIN 32.5 pg (27.0-31.0); MEAN CORPUSCULAR HGB CONC 36.8 g/dL (32.0-36.0); MEAN CORPUSCULAR VOLUME 88.3 fL (80.0-94.0); MEAN PLATELET VOLUME 8.8 fL (7.4-11.4); MONOCYTES % (AUTO) 5.9 %; NEUTROPHILS % (AUTO) 84.7 %; PLT - PLATELET COUNT 293 10^3/uL (130-450); RED BLOOD COUNT 3.85 10^6/uL (4.70-6.10); RED CELL DISTRIBUTION WIDTH 14.1 % (12.0-15.0); WHITE BLOOD COUNT 11.7 x10^3/uL (4.8-10.8)
[2023-04-25 06:05] LABS: ABNORMAL LYMPHS % (MANUAL) 0 %
[2023-04-25 06:11] LABS: ALBUMIN 2.4 g/dL (3.2-5.5); ALBUMIN/GLOBULIN RATIO 0.9 (1.0-2.2); BILIRUBIN,TOTAL 0.8 mg/dL (0.2-1.0); CALCIUM 7.5 mg/dL (8.5-10.3); CREATININE 0.8 mg/dL (0.6-1.3); POTASSIUM 3.5 mmol/L (3.5-4.5); TOTAL PROTEIN 5.2 g/dL (6.4-8.9)
[2023-04-25 06:17] LABS: BAND NEUTROPHILS % (MANUAL) 9 %; LYMPHOCYTES # (MANUAL) 0.1 10^3/uL (1.5-3.5); LYMPHOCYTES % (MANUAL) 1 %; MONOCYTES # (MANUAL) 0.4 10^3/uL (0.0-1.0); NEUTROPHILS # (MANUAL) 11.2 10^3/uL (1.5-6.6); PLATELET ESTIMATE, MANUAL NORMAL (130-450,000) (NORMAL); RBC MORPHOLOGY (MULTIPLE) NORMAL APPEARANCE (NORMAL)
[2023-04-25 06:18] LABS: DIFFERENTIAL COMMENT MANUAL DIFFERENTIAL
[2023-04-25] MEDS: atenoloL 25 MG TABLET PO SCH (08:58)
[2023-04-25] MEDS: ENOXAPARIN 40 MG/0.4 ML SYRINGE SUBQ SCH (08:58)
[2023-04-25] MEDS: guaiFENesin 600 MG TABLET PO SCH (08:58)
[2023-04-25] MEDS: levoFLOXacin 750 MG/150 ML 750 MG/150 ML BAG IV SCH (08:59)
[2023-04-25] MEDS ORDERED: amLODIPine 5 MG TABLET PO SCH (09:00)
[2023-04-25] MEDS ORDERED: SACCHAROMYCES BOULARDII 250 MG CAPSULE PO SCH (09:30)
--- NOTE | 2023-04-25 11:58 | PROVIDER PROGRESS NOTE ---
Assessment/Plan - Problem List (1) Orthostatic hypotension Assessment/Plan: He describes multiple falls while he has been feeling terrible the last few weeks. Most of the falls are onto his buttocks and he now has 8/10 sacral pain. Orthostatic vital signs were checked today and he has a 40 mmHg drop in systolic BP when he goes from supine to standing Plan: Continue with his Tamsulosin and atenolol but I we will move his amlodipine to nighttime Cont IV fluids, encourage oral fluids Echocardiogram ordered to evaluate for structural heart disease (however today is Friday and we have no fiber technician here until Friday) Check orthostatic vital signs daily (2) Fall at home Assessment/Plan: He describes multiple falls while he has been feeling terrible the last few weeks. All of the falls are onto his buttocks and he now has 8/10 "tailbone" pain. There were no images done in ED, besides his chest x-ray Plan: Will obtain CT of the pelvis Will provide pain meds as needed (3) Pneumonia Assessment/Plan: He has had a cough for many days and a fever and malaise. Chest x-ray abnormal and CT scan was read as having dense bilateral consolidations WBC has improved from 15 to 11 Plan: Will continue with empiric IV Levaquin Cont a probiotic Will order Mucinex for expectoration Await blood culture and sputum culture to tailor antibx (4) Enterovirus infection Assessment/Plan: Patient tested positive for enterovirus and rhinovirus. He did have diarrhea but that has now resolved since yesterday. He still has nasal congestion and has this cough Plan: If there is diarrhea, will test it for C diff Symptomatic treatment for these problems is planned with Tylenol as needed, Afrin as needed, Cepacol lozenges. No specific treatment is available for these viruses, this was explaine to pt and his spouse at bedside (5) Hyponatremia Assessment/Plan: ER note states that he runs "chronic hyponatremia" and etiology is not known. He does not take a salt tablet daily. I reviewed his chart, he runs sodium levels of 126-130 Chronic hyponatremia could be a reason for having had so many recent falls plus reason for having orthostasis now. The recent even lower sodium (121>> 124 yesterday) is probably from the several days of diarrhea he had. Na is 127 today (all labs were reviewed) Plan: Check urine sodium to evaluate for SIADH Continue with IV fluids containing NS Follow BMP daily (6) Hx of essential hypertension Assessment/Plan: Plan: I will put holding parameters for giving his BP meds - Current Meds Current Meds: Current Medications Generic Name Dose Route Start Last Admin Trade Name Freq PRN Reason Stop Dose Admin Acetaminophen 650 mg 04/25/23 02:12 04/25/23 09:19 Acetaminophen 325 Mg Tablet PO 650 mg Q4HR PRN Administration Pain or Fever > 38C (100.4F) Atenolol 50 mg 04/25/23 09:00 04/25/23 08:58 Atenolol 25 Mg Tablet PO 50 mg DAILY MATTHEW Administration Enoxaparin Sodium 40 mg 04/25/23 09:00 04/25/23 08:58 Enoxaparin 40 Mg/0.4 Ml Syringe SUBQ 40 mg DAILY MATTHEW Administration Guaifenesin 600 mg 04/25/23 09:00 04/25/23 08:58 Guaifenesin 600 Mg Tablet PO 600 mg BID MATTHEW Administration Levofloxacin 750 mg in 150 mls @ 100 mls/hr 04/25/23 09:00 04/25/23 08:59 Levaquin 750 Mg/150 Ml IV 100 mls/hr DAILY MATTHEW Administration Sodium Chloride 10 ml 04/25/23 01:00 04/25/23 08:59 Sodium Chloride Flush 0.9% 10 Ml Syringe IVP 10 ml 0100,0900,1700 MATTHEW Administration - Lab Result Fish Bone Diagrams: 04/25/23 05:33 04/25/23 05:33 - Additional Planning My Orders: My Active Orders 04/25/23 C DIFF PCR Stat 04/25/23 07:58 Infection Precautions [RC] QSHIFT Orthostatic [Vital Signs - Orthostatic] [RC] QSHIFT Sodium Chloride 0.9% [Normal Saline 0.9%] 1,000 ml IV 50 mls/hr 04/25/23 07:59 guaiFENesin/CODEINE [Robitussin AC] 5 ml PO Q6HR PRN 04/25/23 09:00 Doxazosin [Cardura] 4 mg PO DAILY amLODIPine [Norvasc] 2.5 mg PO DAILY atenoloL [Tenormin] 50 mg PO DAILY guaiFENesin [Mucinex] 600 mg PO BID 04/25/23 09:30 Saccharomyces Boulardii [Florastor] 250 mg PO BIDWM 04/25/23 10:30 CUL, RESPIRATORY [RM] Stat 04/25/23 21:00 Pravastatin [Pravachol] 10 mg PO QPM Subjective - Subjective Patient Reports: Shortness of Breath (Feels winded just walking from bed to chair, feels weak and lightheaded and very tired when upright, still has a cough, has hoarseness from many days of coughing) Objective Vital Signs: Vital Signs - 24 hr 04/24/23 04/24/23 04/24/23 12:00 14:00 16:00 Temperature Heart Rate 86 87 80 Heart Rate [ Radial] Respiratory 18 20 15 Rate Blood Pressure 148/78 H 173/63 H 178/82 H Blood Pressure [Right Brachial artery] O2 Saturation 96 96 98 If not protocol : Oxygen Flow, liters/minute 04/24/23 04/24/23 04/24/23 16:22 17:57 18:15 Temperature 36.5 C Heart Rate 112 H 100 Heart Rate [ Radial] Respiratory 25 H 20 Rate Blood Pressure 141/100 H Blood Pressure [Right Brachial artery] O2 Saturation 90 L 97 If not protocol : Oxygen Flow, liters/minute 04/24/23 04/24/23 04/24/23 19:00 19:20 21:00 Temperature Heart Rate 100 84 84 Heart Rate [ Radial] Respiratory 20 20 18 Rate Blood Pressure 156/87 H 147/74 H Blood Pressure [Right Brachial artery] O2 Saturation 95 97 91 L If not protocol : Oxygen Flow, liters/minute 04/24/23 04/25/23 04/25/23 23:00 00:00 01:07 Temperature Heart Rate 92 91 Heart Rate [ Radial] Respiratory 15 94 H Rate Blood Pressure 174/81 H 176/99 H Blood Pressure [Right Brachial artery] O2 Saturation 98 95 If not protocol 2 2 : Oxygen Flow, liters/minute 04/25/23 04/25/23 04/25/23 01:15 04:00 07:53 Temperature 37.5 C 36.8 C Heart Rate Heart Rate [ 103 H 99 Radial] Respiratory 28 H 14 Rate Blood Pressure Blood Pressure 174/95 H 160/95 H 188/99 H [Right Brachial artery] O2 Saturation 94 99 If not protocol 2 2 : Oxygen Flow, liters/minute 04/25/23 07:55 Temperature Heart Rate Heart Rate [ Radial] Respiratory Rate Blood Pressure Blood Pressure [Right Brachial artery] O2 Saturation If not protocol 2 : Oxygen Flow, liters/minute Oxygen O2 Source Nasal cannula Oxygen Flow Rate 2 I&O (Last 24 Hrs): Intake and Output Totals x24h 04/23/23 04/24/23 04/25/23 23:59 23:59 23:59 Intake Total 4650 820 Output Total 325 1225 Balance 4325 -405 General: Alert, Mild distress (Appears tired and weak), Other (Is disheveled) HEENT: Atraumatic, Other (Dry oral mucosa. His long hair and long theodore) Neck: Supple Neuro: Alert, Other (Has right lid lag, has intentional tremor of his hands.) Cardiovascular: Regular rate, No murmurs Respiratory: No respiratory distress, Rhonchi (at both bases) Abdomen: Soft, No tenderness, Other (Obese) Extremities: No edema, No tenderness/swelling - Results Results: Laboratory Results WBC 11.7 x10^3/uL (4.8-10.8) H 04/25/23 05:33 RBC 3.85 10^6/uL (4.70-6.10) L 04/25/23 05:33 Hgb 12.5 g/dL (14.0-18.0) L 04/25/23 05:33 Hct 34.0 % (42.0-52.0) L 04/25/23 05:33 MCV 88.3 fL (80.0-94.0) 04/25/23 05:33 MCH 32.5 pg (27.0-31.0) H 04/25/23 05:33 MCHC 36.8 g/dL (32.0-36.0) H 04/25/23 05:33 RDW 14.1 % (12.0-15.0) 04/25/23 05:33 Plt Count 293 10^3/uL (130-450) 04/25/23 05:33 MPV 8.8 fL (7.4-11.4) 04/25/23 05:33 Neut # (Auto) Not Reportable 04/25/23 05:33 Lymph # (Auto) Not Reportable 04/25/23 05:33 [place] # (Auto) Not Reportable 04/25/23 05:33 Eos # (Auto) Not Reportable 04/25/23 05:33 Baso # (Auto) Not Reportable 04/25/23 05:33 Absolute Nucleated RBC Not Reportable 04/25/23 05:33 Total Counted 100 04/25/23 05:33 Band Neuts % (Manual) 9 % (0-10) 04/25/23 05:33 Abnorm Lymph % (Manual) 0 % 04/25/23 05:33 Nucleated RBC % Not Reportable 04/25/23 05:33 Neutrophils # (Manual) 11.2 10^3/uL (1.5-6.6) H 04/25/23 05:33 Lymphocytes # (Manual) 0.1 10^3/uL (1.5-3.5) L 04/25/23 05:33 Monocytes # (Manual) 0.4 10^3/uL (0.0-1.0) 04/25/23 05:33 Eosinophils # (Manual) 0.0 10^3/uL (0-0.7) 04/25/23 05:33 Basophils # (Manual) 0.0 10^3/uL (0-0.1) 04/25/23 05:33 Differential Comment MANUAL DIFFERENTIAL 04/25/23 05:33 Manual Slide Review Indicated 04/23/23 22:13 WBC Morphology 1+ TOXIC GRANULATION (NORMAL) 04/23/23 22:13 Platelet Estimate NORMAL (130-450,000) (NORMAL) 04/25/23 05:33 RBC Morph Micro Appear NORMAL APPEARANCE (NORMAL) 04/25/23 05:33 Sodium 127 mmol/L (135-145) L 04/25/23 05:33 Potassium 3.5 mmol/L (3.5-4.5) 04/25/23 05:33 Chloride 98 mmol/L (101-111) L 04/25/23 05:33 Carbon Dioxide 22 mmol/L (21-32) 04/25/23 05:33 Anion Gap 7.0 (6-13) 04/25/23 05:33 BUN 13 mg/dL (6-20) 04/25/23 05:33 Creatinine 0.8 mg/dL (0.6-1.3) 04/25/23 05:33 Estimated GFR (MDRD) 94 (>89) 04/25/23 05:33 Glucose 102 mg/dL (74-104) 04/25/23 05:33 Lactic Acid 0.9 mmol/L (0.5-2.2) 04/24/23 04:57 Calcium 7.5 mg/dL (8.5-10.3) L 04/25/23 05:33 Total Bilirubin 0.8 mg/dL (0.2-1.0) 04/25/23 05:33 AST 16 IU/L (10-42) 04/25/23 05:33 ALT 14 IU/L (10-60) 04/25/23 05:33 Alkaline Phosphatase 54 IU/L (42-121) 04/25/23 05:33 Total Protein 5.2 g/dL (6.4-8.9) L 04/25/23 05:33 Albumin 2.4 g/dL (3.2-5.5) L 04/25/23 05:33 Globulin 2.8 g/dL (2.1-4.2) 04/25/23 05:33 Albumin/Globulin Ratio 0.9 (1.0-2.2) L 04/25/23 05:33 Lipase < 10 U/L (11-82) L 04/23/23 22:13 Procalcitonin Immunoas 0.13 ng/mL (<0.5) 04/25/23 05:33 Urine Color YELLOW 04/24/23 00:55 Urine Clarity CLEAR (CLEAR) 04/24/23 00:55 Urine pH 6.0 PH (5.0-7.5) 04/24/23 00:55 Ur Specific [place] 1.010 (1.002-1.030) 04/24/23 00:55 Urine Protein NEGATIVE mg/dL (NEGATIVE) 04/24/23 00:55 Urine Glucose (UA) NEGATIVE mg/dL (NEGATIVE) 04/24/23 00:55 Urine Ketones 15 mg/dL (NEGATIVE) H 04/24/23 00:55 Urine Occult Blood MODERATE (NEGATIVE) H 04/24/23 00:55 Urine Nitrite NEGATIVE (NEGATIVE) 04/24/23 00:55 Urine Bilirubin NEGATIVE (NEGATIVE) 04/24/23 00:55 Urine Urobilinogen 0.2 (NORMAL) E.U./dL (NORMAL) 04/24/23 00:55 Ur Leukocyte Esterase NEGATIVE (NEGATIVE) 04/24/23 00:55 Urine RBC 11-25 /HPF (0-5) H 04/24/23 00:55 Urine WBC 0-3 /HPF (0-3) 04/24/23 00:55 Ur Squamous Epith Cells RARE Squamous (<= Few) 04/24/23 00:55 Urine Bacteria None Seen /HPF (None Seen) 04/24/23 00:55 Ur Microscopic Review INDICATED 04/24/23 00:55 Urine Culture Comments NOT INDICATED 04/24/23 00:55 Urine Sodium 57.2 mmol/L 04/25/23 10:30 Nasal Adenovirus (PCR) NOT DETECTED 04/23/23 22:13 Nasal B. parapertussis DNA (PCR) NOT DETECTED 04/23/23 22:13 Nasal Coronavir 229E PCR NOT DETECTED 04/23/23 22:13 Nasal Coronavir HKU1 PCR NOT DETECTED 04/23/23 22:13 Nasal Coronavir NL63 PCR NOT DETECTED 04/23/23 22:13 Nasal Coronavir OC43 PCR NOT DETECTED 04/23/23 22:13 Nasal Enterovir/Rhinovir PCR DETECTED A 04/23/23 22:13 Nasal Influenza B PCR NOT DETECTED 04/23/23 22:13 Nasal Influenza A PCR NOT DETECTED 04/23/23 22:13 Nasal Parainfluen 1 PCR NOT DETECTED 04/23/23 22:13 Nasal Parainfluen 2 PCR NOT DETECTED 04/23/23 22:13 Nasal Parainfluen 3 PCR NOT DETECTED 04/23/23 22:13 Nasal Parainfluen 4 PCR NOT DETECTED 04/23/23 22:13 Nasal RSV (PCR) NOT DETECTED 04/23/23 22:13 Nasal B.pertussis DNA PCR NOT DETECTED 04/23/23 22:13 Nasal C.pneumoniae (PCR) NOT DETECTED 04/23/23 22:13 Robin Human Metapneumo PCR NOT DETECTED 04/23/23 22:13 Nasal M.pneumoniae (PCR) NOT DETECTED 04/23/23 22:13 Nasal SARS-CoV-2 (PCR) NOT DETECTED 04/23/23 22:13
--- NOTE | 2023-04-25 12:08 | PHARMACY PROGRESS NOTE ---
- Best Possible Medication History Admit Date and Time: 04/24/23 5770 Processed by: Nursing Medications reviewed in ED?: Yes Medication History completed: Yes Patient Interview: Completed Secondary Source(s): Insurance records As the person ultimately responsible for medication therapy, providers are able to order a medication from an existing home medication list in [facility] via the "Reconcile Routine" prior to Confirmation of that medication by it support specialist. Such practice is discouraged except when the physician, in their clinical judgment, deems that a medical need exists for a medication without regard to previous use.
[2023-04-25] MEDS: DOXAZOSIN 4 MG TABLET PO SCH (13:02)
--- NOTE | 2023-04-25 20:36 | CT Report ---
PROCEDURE: Pelvis WO INDICATIONS: Freq falls on buttocks, has sacral pain TECHNIQUE: Noncontrast 3 mm axial sections acquired through the bony pelvis, with coronal and sagittal reformatt ing. For radiation dose reduction, the following was used: automated exposure control, adjustment of mA and/or kV according to patient size. COMPARISON: None. FINDINGS: Image quality: Diagnostic. Bones: No acute fracture identified. Normal alignment of the bilateral hips. Moderate degenerative c hanges of the bilateral femoraoacetabular joints. Severe lower lumbar spondylosis of the imaged spine with levoscoliosis of the lower lumbar spine. No sacral fractures visualized. No suspicious osseous lesion. Degenerative changes of the bilateral sacroiliac joints without diastases. Visualized bony pe lvis is intact. Soft tissues: Prominent prostate gland. Small bilateral fat-containing inguinal hernias without acut e inflammation. No significant joint effusion. Urinary bladder appears unremarkable. Colonic divertic ulosis without acute diverticulitis. No pelvic sidewall adenopathy. No pathologic pelvic free fluid. IMPRESSION: CT pelvis without acute fracture of the bony pelvis, bilateral hips, lower lumbar spine, or sacrum. Reviewed by: Lazaro Duffy MD on 04/25/2023 8:35 PM PST Approved by: Lazaro Duffy MD on 04/25/2023 8:35 PM PST Station ID: [id number]
[2023-04-25] MEDS: amLODIPine 5 MG TABLET PO SCH (21:30)
[2023-04-25] MEDS: PRAVASTATIN 10 MG TABLET PO SCH (21:30)
[2023-04-26 05:43] LABS: BASOPHILS % (AUTO) 0.3 %; EOSINOPHILS % (AUTO) 0.3 %; HCT - HEMATOCRIT 35.1 % (42.0-52.0); HGB - HEMOGLOBIN 12.5 g/dL (14.0-18.0); LYMPHOCYTES # (AUTO) 0.6 10^3/uL (1.5-3.5); LYMPHOCYTES % (AUTO) 7.1 %; MEAN CORPUSCULAR HEMOGLOBIN 32.1 pg (27.0-31.0); MEAN CORPUSCULAR HGB CONC 35.6 g/dL (32.0-36.0); MEAN CORPUSCULAR VOLUME 90.2 fL (80.0-94.0); MEAN PLATELET VOLUME 8.8 fL (7.4-11.4); MONOCYTES # (AUTO) 0.7 10^3/uL (0.0-1.0); MONOCYTES % (AUTO) 8.5 %; NEUTROPHILS # (AUTO) 6.1 10^3/uL (1.5-6.6); NEUTROPHILS % (AUTO) 77.4 %; PLT - PLATELET COUNT 299 10^3/uL (130-450); RED BLOOD COUNT 3.89 10^6/uL (4.70-6.10); RED CELL DISTRIBUTION WIDTH 14.2 % (12.0-15.0); WHITE BLOOD COUNT 7.9 x10^3/uL (4.8-10.8)
[2023-04-26 05:59] LABS: MAGNESIUM 1.6 mg/dL (1.7-2.3)
[2023-04-26 06:05] LABS: CREATININE 0.9 mg/dL (0.6-1.3); POTASSIUM 3.5 mmol/L (3.5-4.5)
[2023-04-26 06:11] LABS: SLIDE REVIEW? Indicated
[2023-04-26 06:40] LABS: PLATELET ESTIMATE, MANUAL NORMAL (130-450,000) (NORMAL); PLATELET MORPHOLOGY NORMAL APPEARANCE (NORMAL)
[2023-04-26] MEDS: PANTOPRAZOLE 40 MG TABLET PO SCH (07:06)
--- NOTE | 2023-04-26 07:57 | PROVIDER PROGRESS NOTE ---
Assessment/Plan - Problem List (1) Orthostatic hypotension Assessment/Plan: He describes multiple falls while he has been feeling terrible the last few weeks. Orthostatic vital signs yest showed a 40 mmHg drop in systolic BP when he goes from supine to standing. Today there is a 30 mmHg drop in syst BP when he goes from supine to standing. Plan: He is not yet ready for discharge Cont IV fluids Continue giving his Tamsulosin for prostate, and Atenolol for supine HTN, and he took his Amlodipine at nighttime, which I would plan Echocardiogram ordered to evaluate for structural heart disease (however today is Friday and we have no tissue recovery technician here until Friday) Follow orthostatic vital signs q shift to adjust meds and fluids (2) Fall at home Assessment/Plan: He describes multiple falls while he has been feeling terrible the last few weeks. All of the falls are onto his buttocks and he now has 8/10 "tailbone" pain. There were no images done in ED, besides his chest x-ray. So I ordered pelvic CT which was done last night and there were no areas of fracture or dislocation found. Plan: Continue to manage his orthostatic hypotension Will provide pain meds as needed (3) Hyponatremia Assessment/Plan: ER note states that he runs "chronic hyponatremia" and etiology is not known. He does not take a salt tablet daily. I reviewed his entire chart, he runs sodium levels of 126-130 Chronic hyponatremia could be a reason for having had so many recent falls plus be part of the reason for having orthostasis now. The recent even lower sodium (121 at admission) is probably from the several days of diarrhea he had. He has been on IV NS and has the appropriate slow correction of serum sodium. 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 I think the reason is his craniotomy. Plan: I will start him on daily salt tablets I will start decreasing the IV NS over the next 24 to 48 hours When he is off salt NS I will see if he needs free water restriction (5) S/P Craniotomy Assessment/Plan: Yesterday it was learned from his spouse at bedside that the patient had a craniotomy for treating trigeminal neuralgia which was done when he lived in [place]. He has a scar behind his right ear. The surgery was successful and that he does not have lid lag or facial droop or blindness. Likely this craniotomy caused the SIADH (6) Hx of essential hypertension Assessment/Plan: Plan: I will put holding parameters for giving his BP meds (7) Community acquired pneumonia Assessment/Plan: He has had a cough for many days and a fever and malaise. Chest x-ray abnormal and CT scan was read as having dense bilateral consol idations WBC has improved from 15 to 11 Plan: Will continue with empiric IV Levaquin Cont a probiotic Will order Mucinex for expectoration Await blood culture and sputum culture to tailor antibx (8) Enterovirus/Rhinovirus infection Assessment/Plan: Patient tested positive for enterovirus and rhinovirus. He did have diarrhea but that has now resolved since yesterday. He still has nasal congestion and has this cough Plan: If there is diarrhea, will test it for C diff Symptomatic treatment for these problems is planned with Tylenol as needed, Afrin as needed, Cepacol lozenges. No specific treatment is available for these viruses, this was explaine to pt and his spouse at bedside - Current Meds Current Meds: Current Medications Generic Name Dose Route Start Last Admin Trade Name Freq PRN Reason Stop Dose Admin Acetaminophen 650 mg 04/25/23 02:12 04/25/23 21:33 Acetaminophen 325 Mg Tablet PO 650 mg Q4HR PRN Administration Pain or Fever > 38C (100.4F) Amlodipine Besylate 2.5 mg 04/25/23 21:00 04/25/23 21:30 Amlodipine 5 Mg Tablet PO 2.5 mg QPM MATTHEW Administration Atenolol 50 mg 04/25/23 09:00 04/25/23 08:58 Atenolol 25 Mg Tablet PO 50 mg DAILY MATTHEW Administration Doxazosin Mesylate 4 mg 04/25/23 09:00 04/25/23 13:02 Doxazosin 4 Mg Tablet PO 4 mg DAILY MATTHEW Administration Enoxaparin Sodium 40 mg 04/25/23 09:00 04/25/23 08:58 Enoxaparin 40 Mg/0.4 Ml Syringe SUBQ 40 mg DAILY MATTHEW Administration Guaifenesin 600 mg 04/25/23 09:00 04/25/23 21:30 Guaifenesin 600 Mg Tablet PO 600 mg BID MATTHEW Administration Levofloxacin 750 mg in 150 mls @ 100 mls/hr 04/25/23 09:00 04/25/23 10:30 Levaquin 750 Mg/150 Ml IV 04/28/23 10:29 Infused DAILY MATTHEW Infusion Sodium Chloride 1,000 mls @ 50 mls/hr 04/25/23 07:58 04/25/23 14:59 Normal Saline 0.9% IV 04/27/23 05:00 50 mls/hr .Q20H MATTHEW Administration Pantoprazole Sodium 40 mg 04/26/23 07:00 04/26/23 07:06 Pantoprazole 40 Mg Tablet PO 40 mg QDAC MATTHEW Administration Pravastatin Sodium 10 mg 04/25/23 21:00 04/25/23 21:30 Pravastatin 10 Mg Tablet PO 10 mg QPM MATTHEW Administration Sodium Chloride 10 ml 04/25/23 01:00 04/25/23 23:49 Sodium Chloride Flush 0.9% 10 Ml Syringe IVP 10 ml 0100,0900,1700 MATTHEW Administration - Lab Result Fish Bone Diagrams: 04/26/23 05:34 04/26/23 05:34 - Additional Planning My Orders: My Active Orders 04/25/23 07:58 Infection Precautions [RC] QSHIFT Orthostatic [Vital Signs - Orthostatic] [RC] QSHIFT Sodium Chloride 0.9% [Normal Saline 0.9%] 1,000 ml IV 50 mls/hr 04/25/23 07:59 guaiFENesin/CODEINE [Robitussin AC] 5 ml PO Q6HR PRN 04/25/23 09:00 Doxazosin [Cardura] 4 mg PO DAILY atenoloL [Tenormin] 50 mg PO DAILY guaiFENesin [Mucinex] 600 mg PO BID 04/25/23 10:30 CUL, RESPIRATORY [RM] Stat 04/25/23 21:00 Pravastatin [Pravachol] 10 mg PO QPM amLODIPine [Norvasc] 2.5 mg PO QPM 04/26/23 07:00 Pantoprazole [Protonix] 40 mg PO QDAC 04/26/23 08:00 Saccharomyces Boulardii [Florastor] 250 mg PO BIDWM 04/26/23 09:00 Sodium Chloride [Salt Tab] 1 gm PO DAILY Subjective - Subjective Patient Reports: Feeling Better (Less fatigued, less cough, still very hoarse, was dizzy when stood for orthostatic VS checks) Objective Vital Signs: Vital Signs - 24 hr 04/25/23 04/25/23 04/25/23 13:00 15:30 15:33 Temperature 37.1 C Heart Rate [ 78 Radial] Heart Rate [ 81 81 Sitting] Heart Rate [ 91 91 Standing] Respiratory 22 Rate Blood Pressure 150/90 H [Right Brachial artery] Blood Pressure 162/92 H 162/92 H [Sitting] Blood Pressure 150/91 H 150/91 H [Standing] O2 Saturation 97 O2 Saturation [ 97 Sitting] If not protocol 1 : Oxygen Flow, liters/minute 04/25/23 04/25/23 04/26/23 19:40 20:40 00:11 Temperature 37.3 C 36.9 C Heart Rate [ 79 78 Radial] Heart Rate [ Sitting] Heart Rate [ Standing] Respiratory 22 20 Rate Blood Pressure 171/96 H 155/85 H [Right Brachial artery] Blood Pressure [Sitting] Blood Pressure [Standing] O2 Saturation 98 97 O2 Saturation [ Sitting] If not protocol 2.5 2.5 2.5 : Oxygen Flow, liters/minute 04/26/23 04/26/23 05:10 07:38 Temperature 37.0 C 37.2 C Heart Rate [ 76 80 Radial] Heart Rate [ Sitting] Heart Rate [ Standing] Respiratory 22 16 Rate Blood Pressure 169/89 H 164/89 H [Right Brachial artery] Blood Pressure [Sitting] Blood Pressure [Standing] O2 Saturation 98 98 O2 Saturation [ Sitting] If not protocol 2.5 2 : Oxygen Flow, liters/minute Oxygen O2 Source Nasal cannula Oxygen Flow Rate 2 I&O (Last 24 Hrs): Intake and Output Totals x24h 04/24/23 04/25/23 04/26/23 23:59 23:59 23:59 Intake Total 4650 2320.000 800 Output Total 325 1675 2075 Balance 4325 645.000 -1275 General: Alert, Mild distress (From hoarseness and weakness) HEENT: EOMI, Mucous membr. moist/pink Neck: Supple, No JVD Neuro: Alert, Non Focal, Other (Memory improved, and is much more talkative then yesterday) Cardiovascular: Regular rate, No murmurs Respiratory: No respiratory distress, Rhonchi (at both bases) Abdomen: Soft, No tenderness, Other (Obese) Extremities: No edema, No tenderness/swelling - Results Results: Laboratory Results WBC 7.9 x10^3/uL (4.8-10.8) 04/26/23 05:34 RBC 3.89 10^6/uL (4.70-6.10) L 04/26/23 05:34 Hgb 12.5 g/dL (14.0-18.0) L 04/26/23 05:34 Hct 35.1 % (42.0-52.0) L 04/26/23 05:34 MCV 90.2 fL (80.0-94.0) 04/26/23 05:34 MCH 32.1 pg (27.0-31.0) H 04/26/23 05:34 MCHC 35.6 g/dL (32.0-36.0) 04/26/23 05:34 RDW 14.2 % (12.0-15.0) 04/26/23 05:34 Plt Count 299 10^3/uL (130-450) 04/26/23 05:34 MPV 8.8 fL (7.4-11.4) 04/26/23 05:34 Neut # (Auto) 6.1 10^3/uL (1.5-6.6) 04/26/23 05:34 Lymph # (Auto) 0.6 10^3/uL (1.5-3.5) L 04/26/23 05:34 [place] # (Auto) 0.7 10^3/uL (0.0-1.0) 04/26/23 05:34 Eos # (Auto) 0.0 10^3/uL (0.0-0.7) 04/26/23 05:34 Baso # (Auto) 0.0 10^3/uL (0.0-0.1) 04/26/23 05:34 Absolute Nucleated RBC 0.00 x10^3/uL 04/26/23 05:34 Total Counted 100 04/25/23 05:33 Band Neuts % (Manual) 9 % (0-10) 04/25/23 05:33 Abnorm Lymph % (Manual) 0 % 04/25/23 05:33 Nucleated RBC % 0.0 /100WBC 04/26/23 05:34 Neutrophils # (Manual) 11.2 10^3/uL (1.5-6.6) H 04/25/23 05:33 Lymphocytes # (Manual) 0.1 10^3/uL (1.5-3.5) L 04/25/23 05:33 Monocytes # (Manual) 0.4 10^3/uL (0.0-1.0) 04/25/23 05:33 Eosinophils # (Manual) 0.0 10^3/uL (0-0.7) 04/25/23 05:33 Basophils # (Manual) 0.0 10^3/uL (0-0.1) 04/25/23 05:33 Differential Comment MANUAL DIFFERENTIAL 04/25/23 05:33 Manual Slide Review Indicated 04/26/23 05:34 WBC Morphology 1+ TOXIC GRANULATION (NORMAL) 04/23/23 22:13 Platelet Estimate NORMAL (130-450,000) (NORMAL) 04/26/23 05:34 Platelet Morphology NORMAL APPEARANCE (NORMAL) 04/26/23 05:34 RBC Morph Micro Appear NORMAL APPEARANCE (NORMAL) 04/25/23 05:33 Sodium 131 mmol/L (135-145) L 04/26/23 05:34 Potassium 3.5 mmol/L (3.5-4.5) 04/26/23 05:34 Chloride 97 mmol/L (101-111) L 04/26/23 05:34 Carbon Dioxide 25 mmol/L (21-32) 04/26/23 05:34 Anion Gap 9.0 (6-13) 04/26/23 05:34 BUN 10 mg/dL (6-20) 04/26/23 05:34 Creatinine 0.9 mg/dL (0.6-1.3) 04/26/23 05:34 Estimated GFR (MDRD) 82 (>89) L 04/26/23 05:34 Glucose 95 mg/dL (74-104) 04/26/23 05:34 Lactic Acid 0.9 mmol/L (0.5-2.2) 04/24/23 04:57 Calcium 8.0 mg/dL (8.5-10.3) L 04/26/23 05:34 Magnesium 1.6 mg/dL (1.7-2.3) L 04/26/23 05:34 Total Bilirubin 0.8 mg/dL (0.2-1.0) 04/25/23 05:33 AST 16 IU/L (10-42) 04/25/23 05:33 ALT 14 IU/L (10-60) 04/25/23 05:33 Alkaline Phosphatase 54 IU/L (42-121) 04/25/23 05:33 Total Protein 5.2 g/dL (6.4-8.9) L 04/25/23 05:33 Albumin 2.4 g/dL (3.2-5.5) L 04/25/23 05:33 Globulin 2.8 g/dL (2.1-4.2) 04/25/23 05:33 Albumin/Globulin Ratio 0.9 (1.0-2.2) L 04/25/23 05:33 Lipase < 10 U/L (11-82) L 04/23/23 22:13 Procalcitonin Immunoas 0.13 ng/mL (<0.5) 04/25/23 05:33 Urine Color YELLOW 04/24/23 00:55 Urine Clarity CLEAR (CLEAR) 04/24/23 00:55 Urine pH 6.0 PH (5.0-7.5) 04/24/23 00:55 Ur Specific [place] 1.010 (1.002-1.030) 04/24/23 00:55 Urine Protein NEGATIVE mg/dL (NEGATIVE) 04/24/23 00:55 Urine Glucose (UA) NEGATIVE mg/dL (NEGATIVE) 04/24/23 00:55 Urine Ketones 15 mg/dL (NEGATIVE) H 04/24/23 00:55 Urine Occult Blood MODERATE (NEGATIVE) H 04/24/23 00:55 Urine Nitrite NEGATIVE (NEGATIVE) 04/24/23 00:55 Urine Bilirubin NEGATIVE (NEGATIVE) 04/24/23 00:55 Urine Urobilinogen 0.2 (NORMAL) E.U./dL (NORMAL) 04/24/23 00:55 Ur Leukocyte Esterase NEGATIVE (NEGATIVE) 04/24/23 00:55 Urine RBC 11-25 /HPF (0-5) H 04/24/23 00:55 Urine WBC 0-3 /HPF (0-3) 04/24/23 00:55 Ur Squamous Epith Cells RARE Squamous (<= Few) 04/24/23 00:55 Urine Bacteria None Seen /HPF (None Seen) 04/24/23 00:55 Ur Microscopic Review INDICATED 04/24/23 00:55 Urine Culture Comments NOT INDICATED 04/24/23 00:55 Urine Sodium 57.2 mmol/L 04/25/23 10:30 Nasal Adenovirus (PCR) NOT DETECTED 04/23/23 22:13 Nasal B. parapertussis DNA (PCR) NOT DETECTED 04/23/23 22:13 Nasal Coronavir 229E PCR NOT DETECTED 04/23/23 22:13 Nasal Coronavir HKU1 PCR NOT DETECTED 04/23/23 22:13 Nasal Coronavir NL63 PCR NOT DETECTED 04/23/23 22:13 Nasal Coronavir OC43 PCR NOT DETECTED 04/23/23 22:13 Nasal Enterovir/Rhinovir PCR DETECTED A 04/23/23 22:13 Nasal Influenza B PCR NOT DETECTED 04/23/23 22:13 Nasal Influenza A PCR NOT DETECTED 04/23/23 22:13 Nasal Parainfluen 1 PCR NOT DETECTED 04/23/23 22:13 Nasal Parainfluen 2 PCR NOT DETECTED 04/23/23 22:13 Nasal Parainfluen 3 PCR NOT DETECTED 04/23/23 22:13 Nasal Parainfluen 4 PCR NOT DETECTED 04/23/23 22:13 Nasal RSV (PCR) NOT DETECTED 04/23/23 22:13 Nasal B.pertussis DNA PCR NOT DETECTED 04/23/23 22:13 Nasal C.pneumoniae (PCR) NOT DETECTED 04/23/23 22:13 Robin Human Metapneumo PCR NOT DETECTED 04/23/23 22:13 Nasal M.pneumoniae (PCR) NOT DETECTED 04/23/23 22:13 Nasal SARS-CoV-2 (PCR) NOT DETECTED 04/23/23 22:13
[2023-04-26] MEDS: SACCHAROMYCES BOULARDII 250 MG CAPSULE PO SCH (08:25)
[2023-04-26] MEDS: SODIUM CHLORIDE 1 GM TABLET PO SCH (08:26)
--- NOTE | 2023-04-27 11:10 | PROVIDER PROGRESS NOTE ---
Assessment/Plan - Problem List (1) Orthostatic hypotension Assessment/Plan: He describes multiple falls while he has been feeling terrible the last few weeks. Orthostatic vital signs showed a 40 mmHg drop in systolic BP on 04/25, and a 30 mmHg drop in syst BP on 04/26. Today he has better BP but still gets tachycrdic when standing Plan: He is not yet ready for discharge Cont IV fluids Continue giving his Tamsulosin for prostate, and Atenolol for supine HTN, and he took his Amlodipine at nighttime, which I ordered Echocardiogram ordered to evaluate for structural heart disease (however today is Friday and we have no instrument and controls technician here until Friday) Follow orthostatic vital signs q shift to adjust meds and fluids (2) Infection due to beta-hemolytic Streptococcus Assessment/Plan: His sputum culture is growing 2 organisms. The first 1 has been identified as beta-hemolytic Streptococcus, group F Sensitivities are not normally done to this bacteria which is normally susceptible to penicillins, etc. Plan: Will continue with empiric IV Levaquin and adjust to po antibx when final sens are back (3) Community acquired pneumonia Assessment/Plan: He had a cough for many days w/ a fever and malaise before adm Chest x-ray was abnormal and CT scan was read as having dense bilateral consolidations WBC has improved from 15 >> 11 >> 7.9 (all labs were reviewed) Plan: Will continue with empiric IV Levaquin Cont a probiotic Cont Mucinex for expectoration Await blood culture results and sputum culture details to tailor antibx (4) Fall at home Assessment/Plan: He describes multiple falls while he has been feeling terrible the last few weeks. All of the falls are onto his buttocks and he now has 8/10 "tailbone" pain. There were no images done in ED, besides his chest x-ray. So I ordered pelvic CT which was done last night and there were no areas of fracture or dislocation found. Plan: Continue to manage his orthostatic hypotension Will provide pain meds as needed. Will also try Lidocaine 4% patch applied to the tailbone (5) Hyponatremia Assessment/Plan: ER note states that he runs "chronic hyponatremia" and etiology is not known. He does not take a salt tablet daily. I reviewed his entire chart, he runs sodium levels of 126-130. Chronic hyponatremia could be a reason for having had so many recent falls plus be part of the reason for having orthostasis now. His sodium of 121 at admission was probably from the several days of diarrhea he had. He has been on IV NS and has the appropriate slow correction of serum sodium. 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 I think the reason is his craniotomy. Plan: Cont daily salt tablets Cont decreasing the IV NS over the next 24 to 48 hours When he is off iv NS, I will see if he needs free water restriction (7) S/P Craniotomy Assessment/Plan: I learned from his spouse at bedside that the patient had a craniotomy for treating trigeminal neuralgia which was done when he lived in [place]. He has a scar behind his right ear. The surgery was successful in that he does not have lid lag or facial droop or blindness or pain. I suspect the craniotomy caused him to have SIADH. (8) Hx of essential hypertension Assessment/Plan: Plan: BP meds resumed with holding parameters for giving his BP meds (9) Enterovirus/Rhinovirus infection Assessment/Plan: Patient tested positive for enterovirus and rhinovirus. He did have diarrhea but that has now resolved since yesterday. He still has nasal congestion and has this cough Plan: If there is diarrhea, will test it for C diff Symptomatic treatment for these problems is planned with Tylenol as needed, Afrin as needed, Cepacol lozenges. No specific treatment is available for these viruses, this was explaine to pt and his spouse at bedside - Current Meds Current Meds: Current Medications Generic Name Dose Route Start Last Admin Trade Name Freq PRN Reason Stop Dose Admin Acetaminophen 650 mg 04/25/23 02:12 04/27/23 08:46 Acetaminophen 325 Mg Tablet PO 650 mg Q4HR PRN Administration Pain or Fever > 38C (100.4F) Amlodipine Besylate 2.5 mg 04/25/23 21:00 04/26/23 20:12 Amlodipine 5 Mg Tablet PO 2.5 mg QPM MATTHEW Administration Atenolol 50 mg 04/25/23 09:00 04/27/23 08:46 Atenolol 25 Mg Tablet PO 50 mg DAILY MATTHEW Administration Doxazosin Mesylate 4 mg 04/25/23 09:00 04/27/23 09:06 Doxazosin 4 Mg Tablet PO 4 mg DAILY MATTHEW Administration Enoxaparin Sodium 40 mg 04/25/23 09:00 04/27/23 08:48 Enoxaparin 40 Mg/0.4 Ml Syringe SUBQ 40 mg DAILY MATTHEW Administration Guaifenesin 600 mg 04/25/23 09:00 04/27/23 08:46 Guaifenesin 600 Mg Tablet PO 600 mg BID MATTHEW Administration Levofloxacin 750 mg in 150 mls @ 100 mls/hr 04/25/23 09:00 04/27/23 08:54 Levaquin 750 Mg/150 Ml IV 04/28/23 10:29 100 mls/hr DAILY MATTHEW Administration Pantoprazole Sodium 40 mg 04/26/23 07:00 04/27/23 06:31 Pantoprazole 40 Mg Tablet PO 40 mg QDAC MATTHEW Administration Pravastatin Sodium 10 mg 04/25/23 21:00 04/26/23 20:12 Pravastatin 10 Mg Tablet PO 10 mg QPM MATTHEW Administration Saccharomyces Boulardii 250 mg 04/26/23 08:00 04/27/23 08:46 Saccharomyces Boulardii 250 Mg Capsule PO 250 mg BIDWM MATTHEW Administration Sodium Chloride 10 ml 04/25/23 01:00 04/27/23 08:54 Sodium Chloride Flush 0.9% 10 Ml Syringe IVP Not Given 0100,0900,1700 [facility] Sodium Chloride 1 gm 04/26/23 09:00 04/27/23 08:47 Sodium Chloride 1 Gm Tablet PO 1 gm DAILY MATTHEW Administration - Lab Result Fish Bone Diagrams: 04/26/23 05:34 04/26/23 05:34 Subjective - Subjective Patient Reports: Feeling Better (More energy. Less cough and less hoarseness.), Pain (Has severe pain of tailbone) Objective Vital Signs: Vital Signs - 24 hr 04/26/23 04/26/23 04/26/23 12:59 16:03 19:56 Temperature 37.1 C 37.0 C 37 C Heart Rate [ 79 66 71 Radial] Respiratory 20 20 24 Rate Blood Pressure 146/78 H 154/83 H 148/84 H [Right Brachial artery] O2 Saturation 97 97 96 04/26/23 04/27/23 04/27/23 23:24 04:20 08:09 Temperature 36.6 C 37.2 C 36.9 C Heart Rate [ 72 74 Radial] Respiratory 22 20 20 Rate Blood Pressure 151/76 H 150/78 H 153/88 H [Right Brachial artery] O2 Saturation 96 95 95 Oxygen O2 Source Room air Oxygen Flow Rate 2 I&O (Last 24 Hrs): Intake and Output Totals x24h 04/25/23 04/26/23 04/27/23 23:59 23:59 23:59 Intake Total 2320.000 3040 1390 Output Total 1675 4850 1550 Balance 645.000 -1810 -160 General: Alert, Oriented x3 HEENT: EOMI, Mucous membr. moist/pink, Other (Hoarse) Neuro: Alert, Non Focal Cardiovascular: Regular rate, No murmurs Respiratory: No respiratory distress, Rhonchi (at both bases) Abdomen: Soft, No tenderness, Other (Obese) Extremities: No clubbing, No edema, No tenderness/swelling - Results Results: Laboratory Results WBC 7.9 x10^3/uL (4.8-10.8) 04/26/23 05:34 RBC 3.89 10^6/uL (4.70-6.10) L 04/26/23 05:34 Hgb 12.5 g/dL (14.0-18.0) L 04/26/23 05:34 Hct 35.1 % (42.0-52.0) L 04/26/23 05:34 MCV 90.2 fL (80.0-94.0) 04/26/23 05:34 MCH 32.1 pg (27.0-31.0) H 04/26/23 05:34 MCHC 35.6 g/dL (32.0-36.0) 04/26/23 05:34 RDW 14.2 % (12.0-15.0) 04/26/23 05:34 Plt Count 299 10^3/uL (130-450) 04/26/23 05:34 MPV 8.8 fL (7.4-11.4) 04/26/23 05:34 Neut # (Auto) 6.1 10^3/uL (1.5-6.6) 04/26/23 05:34 Lymph # (Auto) 0.6 10^3/uL (1.5-3.5) L 04/26/23 05:34 [place] # (Auto) 0.7 10^3/uL (0.0-1.0) 04/26/23 05:34 Eos # (Auto) 0.0 10^3/uL (0.0-0.7) 04/26/23 05:34 Baso # (Auto) 0.0 10^3/uL (0.0-0.1) 04/26/23 05:34 Absolute Nucleated RBC 0.00 x10^3/uL 04/26/23 05:34 Total Counted 100 04/25/23 05:33 Band Neuts % (Manual) 9 % (0-10) 04/25/23 05:33 Abnorm Lymph % (Manual) 0 % 04/25/23 05:33 Nucleated RBC % 0.0 /100WBC 04/26/23 05:34 Neutrophils # (Manual) 11.2 10^3/uL (1.5-6.6) H 04/25/23 05:33 Lymphocytes # (Manual) 0.1 10^3/uL (1.5-3.5) L 04/25/23 05:33 Monocytes # (Manual) 0.4 10^3/uL (0.0-1.0) 04/25/23 05:33 Eosinophils # (Manual) 0.0 10^3/uL (0-0.7) 04/25/23 05:33 Basophils # (Manual) 0.0 10^3/uL (0-0.1) 04/25/23 05:33 Differential Comment MANUAL DIFFERENTIAL 04/25/23 05:33 Manual Slide Review Indicated 04/26/23 05:34 WBC Morphology 1+ TOXIC GRANULATION (NORMAL) 04/23/23 22:13 Platelet Estimate NORMAL (130-450,000) (NORMAL) 04/26/23 05:34 Platelet Morphology NORMAL APPEARANCE (NORMAL) 04/26/23 05:34 RBC Morph Micro Appear NORMAL APPEARANCE (NORMAL) 04/25/23 05:33 Sodium 131 mmol/L (135-145) L 04/26/23 05:34 Potassium 3.5 mmol/L (3.5-4.5) 04/26/23 05:34 Chloride 97 mmol/L (101-111) L 04/26/23 05:34 Carbon Dioxide 25 mmol/L (21-32) 04/26/23 05:34 Anion Gap 9.0 (6-13) 04/26/23 05:34 BUN 10 mg/dL (6-20) 04/26/23 05:34 Creatinine 0.9 mg/dL (0.6-1.3) 04/26/23 05:34 Estimated GFR (MDRD) 82 (>89) L 04/26/23 05:34 Glucose 95 mg/dL (74-104) 04/26/23 05:34 Lactic Acid 0.9 mmol/L (0.5-2.2) 04/24/23 04:57 Calcium 8.0 mg/dL (8.5-10.3) L 04/26/23 05:34 Magnesium 1.6 mg/dL (1.7-2.3) L 04/26/23 05:34 Total Bilirubin 0.8 mg/dL (0.2-1.0) 04/25/23 05:33 AST 16 IU/L (10-42) 04/25/23 05:33 ALT 14 IU/L (10-60) 04/25/23 05:33 Alkaline Phosphatase 54 IU/L (42-121) 04/25/23 05:33 Total Protein 5.2 g/dL (6.4-8.9) L 04/25/23 05:33 Albumin 2.4 g/dL (3.2-5.5) L 04/25/23 05:33 Globulin 2.8 g/dL (2.1-4.2) 04/25/23 05:33 Albumin/Globulin Ratio 0.9 (1.0-2.2) L 04/25/23 05:33 Lipase < 10 U/L (11-82) L 04/23/23 22:13 Procalcitonin Immunoas 0.13 ng/mL (<0.5) 04/25/23 05:33 Urine Color YELLOW 04/24/23 00:55 Urine Clarity CLEAR (CLEAR) 04/24/23 00:55 Urine pH 6.0 PH (5.0-7.5) 04/24/23 00:55 Ur Specific [place] 1.010 (1.002-1.030) 04/24/23 00:55 Urine Protein NEGATIVE mg/dL (NEGATIVE) 04/24/23 00:55 Urine Glucose (UA) NEGATIVE mg/dL (NEGATIVE) 04/24/23 00:55 Urine Ketones 15 mg/dL (NEGATIVE) H 04/24/23 00:55 Urine Occult Blood MODERATE (NEGATIVE) H 04/24/23 00:55 Urine Nitrite NEGATIVE (NEGATIVE) 04/24/23 00:55 Urine Bilirubin NEGATIVE (NEGATIVE) 04/24/23 00:55 Urine Urobilinogen 0.2 (NORMAL) E.U./dL (NORMAL) 04/24/23 00:55 Ur Leukocyte Esterase NEGATIVE (NEGATIVE) 04/24/23 00:55 Urine RBC 11-25 /HPF (0-5) H 04/24/23 00:55 Urine WBC 0-3 /HPF (0-3) 04/24/23 00:55 Ur Squamous Epith Cells RARE Squamous (<= Few) 04/24/23 00:55 Urine Bacteria None Seen /HPF (None Seen) 04/24/23 00:55 Ur Microscopic Review INDICATED 04/24/23 00:55 Urine Culture Comments NOT INDICATED 04/24/23 00:55 Urine Sodium 57.2 mmol/L 04/25/23 10:30 Nasal Adenovirus (PCR) NOT DETECTED 04/23/23 22:13 Nasal B. parapertussis DNA (PCR) NOT DETECTED 04/23/23 22:13 Nasal Coronavir 229E PCR NOT DETECTED 04/23/23 22:13 Nasal Coronavir HKU1 PCR NOT DETECTED 04/23/23 22:13 Nasal Coronavir NL63 PCR NOT DETECTED 04/23/23 22:13 Nasal Coronavir OC43 PCR NOT DETECTED 04/23/23 22:13 Nasal Enterovir/Rhinovir PCR DETECTED A 04/23/23 22:13 Nasal Influenza B PCR NOT DETECTED 04/23/23 22:13 Nasal Influenza A PCR NOT DETECTED 04/23/23 22:13 Nasal Parainfluen 1 PCR NOT DETECTED 04/23/23 22:13 Nasal Parainfluen 2 PCR NOT DETECTED 04/23/23 22:13 Nasal Parainfluen 3 PCR NOT DETECTED 04/23/23 22:13 Nasal Parainfluen 4 PCR NOT DETECTED 04/23/23 22:13 Nasal RSV (PCR) NOT DETECTED 04/23/23 22:13 Nasal B.pertussis DNA PCR NOT DETECTED 04/23/23 22:13 Nasal C.pneumoniae (PCR) NOT DETECTED 04/23/23 22:13 Robin Human Metapneumo PCR NOT DETECTED 04/23/23 22:13 Nasal M.pneumoniae (PCR) NOT DETECTED 04/23/23 22:13 Nasal SARS-CoV-2 (PCR) NOT DETECTED 04/23/23 22:13
[2023-04-27] MEDS ORDERED: LIDOCAINE PATCH 4% TOP ONE (17:39)
[2023-04-27] MEDS: LIDOCAINE PATCH 4% TOP SCH (17:41)
[2023-04-28 05:42] LABS: BASOPHILS % (AUTO) 0.4 %; EOSINOPHILS # (AUTO) 0.3 10^3/uL (0.0-0.7); HCT - HEMATOCRIT 35.4 % (42.0-52.0); HGB - HEMOGLOBIN 12.4 g/dL (14.0-18.0); LYMPHOCYTES # (AUTO) 0.7 10^3/uL (1.5-3.5); LYMPHOCYTES % (AUTO) 10.4 %; MEAN CORPUSCULAR HEMOGLOBIN 32.5 pg (27.0-31.0); MEAN CORPUSCULAR VOLUME 92.9 fL (80.0-94.0); MEAN PLATELET VOLUME 9.2 fL (7.4-11.4); MONOCYTES # (AUTO) 0.7 10^3/uL (0.0-1.0); MONOCYTES % (AUTO) 9.4 %; NEUTROPHILS # (AUTO) 4.9 10^3/uL (1.5-6.6); PLT - PLATELET COUNT 265 10^3/uL (130-450); RED BLOOD COUNT 3.81 10^6/uL (4.70-6.10); RED CELL DISTRIBUTION WIDTH 13.9 % (12.0-15.0); WHITE BLOOD COUNT 6.9 x10^3/uL (4.8-10.8)
[2023-04-28 06:56] LABS: DIFFERENTIAL COMMENT MANUAL=AUTO DIFF; PLATELET ESTIMATE, MANUAL NORMAL (130-450,000) (NORMAL); PLATELET MORPHOLOGY NORMAL APPEARANCE (NORMAL); RBC MORPHOLOGY (MULTIPLE) 1+ ANISOCYTOSIS (NORMAL)
--- NOTE | 2023-04-28 08:50 | PROVIDER PROGRESS NOTE ---
Assessment/Plan - Problem List (1) Hyponatremia Assessment/Plan: ER note states that he runs "chronic hyponatremia" and "etiology is not known". He did not take a salt tablet daily. I reviewed his entire chart, he runs sodium levels of 126-130. Chronic hyponatremia could be a reason for having had so many recent falls plus be part of the reason for having orthostasis now. His sodium of 121 at admission was probably from the several days of diarrhea he had. He has been on IV NS and has the appropriate slow correction of serum sodium. I started him on salt tablet, 1 g daily and I have weaned the IV NS to off as of last night Na was 131 yesterday>> 127 today (all labs were reviewed). 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 I think the reason is his craniotomy. Plan: Cont daily salt tablets Now that he is off iv NS, I will order free water restriction (3) Orthostatic hypotension Assessment/Plan: He describes multiple falls while he has been feeling terrible the last few weeks. Orthostatic vital signs showed a 40 mmHg drop in systolic BP on 04/25, and a 30 mmHg drop in syst BP on 04/26. Today he had a 20 mmHg drop in BP (VS were all reviewed). Plan: He is not yet ready for discharge Cont treating the Hyponatremia and SIADH Continue giving his Tamsulosin for prostate, and Atenolol for supine HTN, and Amlodipine at nighttime Echocardiogram ordered to evaluate for structural heart disease (however today is Friday and we have no missile tracking technician here until Friday) Follow orthostatic vital signs q shift to adjust meds and fluids PT and OT to keep working with him (4) Fall at home Assessment/Plan: He describes multiple falls while he has been feeling terrible the last few weeks. All of the falls are onto his buttocks and he now has 8/10 "tailbone" pain. There were no images done in ED, besides his chest x-ray. So I ordered pelvic CT which was done last night and there were no areas of fracture or dislocation found. Plan: Continue to manage his orthostatic hypotension Will provide pain meds as needed. And I ordered a Lidocaine 4% patch applied to the tailbone (5) Community acquired pneumonia Assessment/Plan: He had a cough for many days w/ a fever and malaise before adm Chest x-ray was abnormal and CT scan was read as having dense bilateral consolidations WBC has improved from 15 >> 11 >> 7.9 >> 6.9 today (all labs were reviewed) His sputum culture is growing 2 organisms: Beta-hemolytic strep and a gram- negative bacillus that has not yet been Plan: Will finish his course of IV Levaquin after today. He may need transition to an oral antibx, depending on final sens are back of both organisms Cont a probiotic while antibx being given Cont Mucinex for expectoration (6) Infection due to beta-hemolytic Streptococcus Assessment/Plan: His sputum culture is growing 2 organisms. The first one has been identified as beta-hemolytic Streptococcus, group F. Sensitivities are not normally done to this bacteria which is normally susceptible to penicillins, etc. Plan: Will continue with empiric IV Levaquin and possibly transition to a po antibx when final sens are back of both organisms (7) Enterovirus/Rhinovirus infection Assessment/Plan: Patient tested positive for enterovirus and rhinovirus. He did have diarrhea but that has now resolved since yesterday. He still has nasal congestion and has this cough. There has been no diarrhea sinc admission Plan: Symptomatic treatment for these problems is planned with Tylenol as needed, Afrin as needed, Cepacol lozenges. No specific treatment is available for these viruses, which was explained to pt and his spouse at bedside (8) S/P Craniotomy Assessment/Plan: I learned from his spouse that the patient had a craniotomy for treating trigeminal neuralgia which was done when he lived in [place] many years ago. He has a scar behind his right ear. The surgery was successful in that he does not have lid lag or facial droop or blindness or pain. I suspect the craniotomy/brain surgery caused him to have SIADH. (9) Hx of essential hypertension Assessment/Plan: Plan: BP meds have been resumed with holding parameters since he has orthostasis - Current Meds Current Meds: Current Medications Generic Name Dose Route Start Last Admin Trade Name Freq PRN Reason Stop Dose Admin Acetaminophen 650 mg 04/25/23 02:12 04/28/23 04:21 Acetaminophen 325 Mg Tablet PO 650 mg Q4HR PRN Administration Pain or Fever > 38C (100.4F) Amlodipine Besylate 2.5 mg 04/25/23 21:00 04/27/23 20:58 Amlodipine 5 Mg Tablet PO 2.5 mg QPM MATTHEW Administration Atenolol 50 mg 04/25/23 09:00 04/27/23 08:46 Atenolol 25 Mg Tablet PO 50 mg DAILY MATTHEW Administration Doxazosin Mesylate 4 mg 04/25/23 09:00 04/27/23 09:06 Doxazosin 4 Mg Tablet PO 4 mg DAILY MATTHEW Administration Enoxaparin Sodium 40 mg 04/25/23 09:00 04/27/23 08:48 Enoxaparin 40 Mg/0.4 Ml Syringe SUBQ 40 mg DAILY MATTHEW Administration Guaifenesin 600 mg 04/25/23 09:00 04/27/23 20:58 Guaifenesin 600 Mg Tablet PO 600 mg BID MATTHEW Administration Levofloxacin 750 mg in 150 mls @ 100 mls/hr 04/25/23 09:00 04/27/23 11:13 Levaquin 750 Mg/150 Ml IV 04/28/23 10:29 Infused DAILY MATTHEW Infusion Lidocaine 1 patch 04/27/23 16:48 04/27/23 17:41 Lidocaine Patch 4% TOP 1 patch DAILY MATTHEW Administration Pantoprazole Sodium 40 mg 04/26/23 07:00 04/28/23 06:55 Pantoprazole 40 Mg Tablet PO 40 mg QDAC MTATHEW Administration Pravastatin Sodium 10 mg 04/25/23 21:00 04/27/23 20:57 Pravastatin 10 Mg Tablet PO 10 mg QPM MATTHEW Administration Saccharomyces Boulardii 250 mg 04/26/23 08:00 04/27/23 17:37 Saccharomyces Boulardii 250 Mg Capsule PO 04/29/23 00:01 250 mg BIDWM MATTHEW Administration Sodium Chloride 10 ml 04/25/23 01:00 04/27/23 23:50 Sodium Chloride Flush 0.9% 10 Ml Syringe IVP 10 ml 0100,0900,1700 MATTHEW Administration Sodium Chloride 1 gm 04/26/23 09:00 04/27/23 08:47 Sodium Chloride 1 Gm Tablet PO 1 gm DAILY MATTHEW Administration - Lab Result Fish Bone Diagrams: 04/28/23 05:33 04/28/23 05:33 - Additional Planning My Orders: My Active Orders 04/27/23 16:48 Lidocaine Patch 4% [Lidocaine Pain Relief] 1 patch TOP DAILY 04/29/23 05:00 BMP - BASIC METABOLIC PANEL [CHEM] DAILYLAB 04/30/23 05:00 BMP - BASIC METABOLIC PANEL [CHEM] DAILYLAB 05/01/23 05:00 BMP - BASIC METABOLIC PANEL [CHEM] DAILYLAB Subjective - Subjective Patient Reports: Shortness of Breath, Other (Still feels weak overall plus dizzy when he stands) Objective Vital Signs: Vital Signs - 24 hr 04/27/23 04/27/23 04/27/23 11:53 17:43 20:54 Temperature 36.7 C 36.6 C 36.6 C Heart Rate [ 76 72 73 Radial] Respiratory 18 20 18 Rate Blood Pressure 152/83 H 152/81 H 169/93 H [Right Brachial artery] O2 Saturation 96 95 97 04/27/23 04/28/23 23:57 04:25 Temperature 37 C 37.0 C Heart Rate [ 75 69 Radial] Respiratory 16 20 Rate Blood Pressure 149/85 H 147/80 H [Right Brachial artery] O2 Saturation 95 95 Oxygen O2 Source Room air Oxygen Flow Rate 2 I&O (Last 24 Hrs): Intake and Output Totals x24h 04/26/23 04/27/23 04/28/23 23:59 23:59 23:59 Intake Total 3040 3410 300 Output Total 4850 3315 2025 Balance -1810 95 -1725 General: Alert, Oriented x3 HEENT: EOMI, Mucous membr. moist/pink Neck: Supple, No JVD Neuro: Alert, Non Focal Cardiovascular: Regular rate, No murmurs Respiratory: Rales, Rhonchi Abdomen: Normal bowel sounds, Soft Extremities: No edema, No tenderness/swelling - Results Results: Laboratory Results WBC 6.9 x10^3/uL (4.8-10.8) 04/28/23 05:33 RBC 3.81 10^6/uL (4.70-6.10) L 04/28/23 05:33 Hgb 12.4 g/dL (14.0-18.0) L 04/28/23 05:33 Hct 35.4 % (42.0-52.0) L 04/28/23 05:33 MCV 92.9 fL (80.0-94.0) 04/28/23 05:33 MCH 32.5 pg (27.0-31.0) H 04/28/23 05:33 MCHC 35.0 g/dL (32.0-36.0) 04/28/23 05:33 RDW 13.9 % (12.0-15.0) 04/28/23 05:33 Plt Count 265 10^3/uL (130-450) 04/28/23 05:33 MPV 9.2 fL (7.4-11.4) 04/28/23 05:33 Neut # (Auto) 4.9 10^3/uL (1.5-6.6) 04/28/23 05:33 Lymph # (Auto) 0.7 10^3/uL (1.5-3.5) L 04/28/23 05:33 [place] # (Auto) 0.7 10^3/uL (0.0-1.0) 04/28/23 05:33 Eos # (Auto) 0.3 10^3/uL (0.0-0.7) 04/28/23 05:33 Baso # (Auto) 0.0 10^3/uL (0.0-0.1) 04/28/23 05:33 Absolute Nucleated RBC 0.00 x10^3/uL 04/28/23 05:33 Total Counted 100 04/25/23 05:33 Band Neuts % (Manual) Not Reportable 04/28/23 05:33 Abnorm Lymph % (Manual) Not Reportable 04/28/23 05:33 Nucleated RBC % 0.0 /100WBC 04/28/23 05:33 Neutrophils # (Manual) Not Reportable 04/28/23 05:33 Lymphocytes # (Manual) Not Reportable 04/28/23 05:33 Monocytes # (Manual) Not Reportable 04/28/23 05:33 Eosinophils # (Manual) Not Reportable 04/28/23 05:33 Basophils # (Manual) Not Reportable 04/28/23 05:33 Differential Comment MANUAL=AUTO DIFF 04/28/23 05:33 Manual Slide Review Indicated 04/26/23 05:34 WBC Morphology 1+ TOXIC GRANULATION (NORMAL) 04/23/23 22:13 Platelet Estimate NORMAL (130-450,000) (NORMAL) 04/28/23 05:33 Platelet Morphology NORMAL APPEARANCE (NORMAL) 04/28/23 05:33 RBC Morph Micro Appear 1+ ANISOCYTOSIS (NORMAL) 04/28/23 05:33 Sodium 127 mmol/L (135-145) L 04/28/23 05:33 Potassium 4.0 mmol/L (3.5-4.5) 04/28/23 05:33 Chloride 94 mmol/L (101-111) L 04/28/23 05:33 Carbon Dioxide 27 mmol/L (21-32) 04/28/23 05:33 Anion Gap 6.0 (6-13) 04/28/23 05:33 BUN 13 mg/dL (6-20) 04/28/23 05:33 Creatinine 1.0 mg/dL (0.6-1.3) 04/28/23 05:33 Estimated GFR (MDRD) 72 (>89) L 04/28/23 05:33 Glucose 104 mg/dL (74-104) 04/28/23 05:33 Lactic Acid 0.9 mmol/L (0.5-2.2) 04/24/23 04:57 Calcium 8.0 mg/dL (8.5-10.3) L 04/28/23 05:33 Magnesium 1.6 mg/dL (1.7-2.3) L 04/26/23 05:34 Total Bilirubin 0.8 mg/dL (0.2-1.0) 04/25/23 05:33 AST 16 IU/L (10-42) 04/25/23 05:33 ALT 14 IU/L (10-60) 04/25/23 05:33 Alkaline Phosphatase 54 IU/L (42-121) 04/25/23 05:33 Total Protein 5.2 g/dL (6.4-8.9) L 04/25/23 05:33 Albumin 2.4 g/dL (3.2-5.5) L 04/25/23 05:33 Globulin 2.8 g/dL (2.1-4.2) 04/25/23 05:33 Albumin/Globulin Ratio 0.9 (1.0-2.2) L 04/25/23 05:33 Lipase < 10 U/L (11-82) L 04/23/23 22:13 Procalcitonin Immunoas 0.13 ng/mL (<0.5) 04/25/23 05:33 Urine Color YELLOW 04/24/23 00:55 Urine Clarity CLEAR (CLEAR) 04/24/23 00:55 Urine pH 6.0 PH (5.0-7.5) 04/24/23 00:55 Ur Specific [place] 1.010 (1.002-1.030) 04/24/23 00:55 Urine Protein NEGATIVE mg/dL (NEGATIVE) 04/24/23 00:55 Urine Glucose (UA) NEGATIVE mg/dL (NEGATIVE) 04/24/23 00:55 Urine Ketones 15 mg/dL (NEGATIVE) H 04/24/23 00:55 Urine Occult Blood MODERATE (NEGATIVE) H 04/24/23 00:55 Urine Nitrite NEGATIVE (NEGATIVE) 04/24/23 00:55 Urine Bilirubin NEGATIVE (NEGATIVE) 04/24/23 00:55 Urine Urobilinogen 0.2 (NORMAL) E.U./dL (NORMAL) 04/24/23 00:55 Ur Leukocyte Esterase NEGATIVE (NEGATIVE) 04/24/23 00:55 Urine RBC 11-25 /HPF (0-5) H 04/24/23 00:55 Urine WBC 0-3 /HPF (0-3) 04/24/23 00:55 Ur Squamous Epith Cells RARE Squamous (<= Few) 04/24/23 00:55 Urine Bacteria None Seen /HPF (None Seen) 04/24/23 00:55 Ur Microscopic Review INDICATED 04/24/23 00:55 Urine Culture Comments NOT INDICATED 04/24/23 00:55 Urine Sodium 57.2 mmol/L 04/25/23 10:30 Nasal Adenovirus (PCR) NOT DETECTED 04/23/23 22:13 Nasal B. parapertussis DNA (PCR) NOT DETECTED 04/23/23 22:13 Nasal Coronavir 229E PCR NOT DETECTED 04/23/23 22:13 Nasal Coronavir HKU1 PCR NOT DETECTED 04/23/23 22:13 Nasal Coronavir NL63 PCR NOT DETECTED 04/23/23 22:13 Nasal Coronavir OC43 PCR NOT DETECTED 04/23/23 22:13 Nasal Enterovir/Rhinovir PCR DETECTED A 04/23/23 22:13 Nasal Influenza B PCR NOT DETECTED 04/23/23 22:13 Nasal Influenza A PCR NOT DETECTED 04/23/23 22:13 Nasal Parainfluen 1 PCR NOT DETECTED 04/23/23 22:13 Nasal Parainfluen 2 PCR NOT DETECTED 04/23/23 22:13 Nasal Parainfluen 3 PCR NOT DETECTED 04/23/23 22:13 Nasal Parainfluen 4 PCR NOT DETECTED 04/23/23 22:13 Nasal RSV (PCR) NOT DETECTED 04/23/23 22:13 Nasal B.pertussis DNA PCR NOT DETECTED 04/23/23 22:13 Nasal C.pneumoniae (PCR) NOT DETECTED 04/23/23 22:13 Robin Human Metapneumo PCR NOT DETECTED 04/23/23 22:13 Nasal M.pneumoniae (PCR) NOT DETECTED 04/23/23 22:13 Nasal SARS-CoV-2 (PCR) NOT DETECTED 04/23/23 22:13
[2023-04-29 05:47] LABS: CALCIUM 8.4 mg/dL (8.5-10.3); CREATININE 1.1 mg/dL (0.6-1.3)
[2023-04-29] MEDS: polyethylene glycoL 3350 17 GM PACKET PO SCH (09:16)
[2023-04-29] MEDS: ZINC OXIDE 20% OINT 30 GM TUBE TOP PRN (20:29)
--- NOTE | 2023-04-29 22:51 | PROVIDER PROGRESS NOTE ---
Assessment/Plan - Problem List (1) Hyponatremia Assessment/Plan: Continue on a salt tablet daily Start free water restriction, maximum 1200 cc/day Follow BMP daily (2) SIADH Assessment/Plan: Continue 1 g of salt tablet daily. Continue fluid restriction. (3) Orthostatic hypotension Assessment/Plan: Echocardiogram ordered for patient. Patient not ready for discharge given orthostatic hypotension. (4) Fall at home Assessment/Plan: PT OT is recommending SNF. Falls may be related to orthostatic hypotension. (5) Community acquired pneumonia Assessment/Plan: Patient grew beta-hemolytic strep from his sputum.He has completed a course of Levofloxacin. (6) Infection due to beta-hemolytic Streptococcus Assessment/Plan: He has completed a course of levofloxacin. (7) Enterovirus/Rhinovirus infection Assessment/Plan: Plan: Symptomatic treatment for these problems is planned with Tylenol as needed, Afrin as needed, Cepacol lozenges. No specific treatment is available for these viruses, which was explained to pt and his spouse at bedside (8) S/P Craniotomy Assessment/Plan: Craniotomy performed for trigeminal neuralgia many years ago may have resulted in SIADH. (9) Hx of essential hypertension Assessment/Plan: Plan: Continue amlodipineand atenolol. - Current Meds Current Meds: Current Medications Generic Name Dose Route Start Last Admin Trade Name Freq PRN Reason Stop Dose Admin Acetaminophen 650 mg 04/25/23 02:12 04/29/23 14:25 Acetaminophen 325 Mg Tablet PO 650 mg Q4HR PRN Administration Pain or Fever > 38C (100.4F) Amlodipine Besylate 2.5 mg 04/25/23 21:00 04/29/23 20:29 Amlodipine 5 Mg Tablet PO 2.5 mg QPM MATTHEW Administration Atenolol 50 mg 04/25/23 09:00 04/29/23 09:15 Atenolol 25 Mg Tablet PO 50 mg DAILY MATTHEW Administration Doxazosin Mesylate 4 mg 04/25/23 09:00 04/29/23 09:15 Doxazosin 4 Mg Tablet PO 4 mg DAILY MATTHEW Administration Enoxaparin Sodium 40 mg 04/25/23 09:00 04/29/23 09:15 Enoxaparin 40 Mg/0.4 Ml Syringe SUBQ 40 mg DAILY MATTHEW Administration Guaifenesin 600 mg 04/25/23 09:00 04/29/23 20:29 Guaifenesin 600 Mg Tablet PO 600 mg BID MATTHEW Administration Lidocaine 1 patch 04/27/23 16:48 04/29/23 09:15 Lidocaine Patch 4% TOP 1 patch DAILY MATTHEW Administration Multi-Ingredient Ointment 1 applic 04/29/23 18:57 04/29/23 20:29 Zinc Oxide 20% Oint 30 Gm Tube TOP 1 applic PRN PRN Administration Skin Care Pantoprazole Sodium 40 mg 04/26/23 07:00 04/29/23 07:14 Pantoprazole 40 Mg Tablet PO 40 mg QDAC MATTHEW Administration Polyethylene Glycol 17 gm 04/29/23 09:00 04/29/23 09:16 Polyethylene Glycol 3350 17 Gm Packet PO Not Given DAILY MATTHEW Pravastatin Sodium 10 mg 04/25/23 21:00 04/29/23 20:29 Pravastatin 10 Mg Tablet PO 10 mg QPM MATTHEW Administration Sodium Chloride 10 ml 04/25/23 01:00 04/29/23 20:29 Sodium Chloride Flush 0.9% 10 Ml Syringe IVP 10 ml 0100,0900,1700 MATTHEW Administration Sodium Chloride 1 gm 04/26/23 09:00 04/29/23 09:15 Sodium Chloride 1 Gm Tablet PO 1 gm DAILY MATTHEW Administration - Lab Result Fish Bone Diagrams: 04/28/23 05:33 04/29/23 05:09 - Additional Planning My Orders: My Active Orders 04/30/23 08:00 Magnesium Oxide [Mag Ox] 400 mg PO DAILYWM Subjective - Subjective Patient Reports: Other (Alert. Following commands. Denies chest pain, abdominal pain and shortness of breath.) Objective Vital Signs: Vital Signs - 24 hr 04/29/23 04/29/23 04/29/23 00:10 04:05 08:57 Temperature 36.6 C 36.6 C 36.8 C Heart Rate [ 69 68 76 Brachial] Respiratory 16 20 20 Rate Blood Pressure 151/79 H 141/76 H 153/79 H [Right Brachial artery] O2 Saturation 97 94 94 04/29/23 04/29/23 04/29/23 12:44 16:22 20:19 Temperature 37 C 36.5 C 36.7 C Heart Rate [ 70 67 68 Brachial] Respiratory 16 20 20 Rate Blood Pressure 137/70 H 144/73 H 139/70 H [Right Brachial artery] O2 Saturation 96 97 96 Oxygen O2 Source Room air Oxygen Flow Rate 2 I&O (Last 24 Hrs): Intake and Output Totals x24h 04/27/23 04/28/23 04/29/23 23:59 23:59 23:59 Intake Total 3410 1150 820 Output Total 3315 3325 1125 Balance 95 -1343 -305 General: Alert, Oriented x3, No acute distress Neck: No JVD Neuro: Non Focal Cardiovascular: Regular rate, Normal S1, Normal S2 Respiratory: Other (Fair air exchange in all lung sanders no wheezing no crackles.) Abdomen: Normal bowel sounds, Soft Extremities: No cyanosis, No edema Skin: No rashes - Results Results: Laboratory Results WBC 6.9 x10^3/uL (4.8-10.8) 04/28/23 05:33 RBC 3.81 10^6/uL (4.70-6.10) L 04/28/23 05:33 Hgb 12.4 g/dL (14.0-18.0) L 04/28/23 05:33 Hct 35.4 % (42.0-52.0) L 04/28/23 05:33 MCV 92.9 fL (80.0-94.0) 04/28/23 05:33 MCH 32.5 pg (27.0-31.0) H 04/28/23 05:33 MCHC 35.0 g/dL (32.0-36.0) 04/28/23 05:33 RDW 13.9 % (12.0-15.0) 04/28/23 05:33 Plt Count 265 10^3/uL (130-450) 04/28/23 05:33 MPV 9.2 fL (7.4-11.4) 04/28/23 05:33 Neut # (Auto) 4.9 10^3/uL (1.5-6.6) 04/28/23 05:33 Lymph # (Auto) 0.7 10^3/uL (1.5-3.5) L 04/28/23 05:33 [place] # (Auto) 0.7 10^3/uL (0.0-1.0) 04/28/23 05:33 Eos # (Auto) 0.3 10^3/uL (0.0-0.7) 04/28/23 05:33 Baso # (Auto) 0.0 10^3/uL (0.0-0.1) 04/28/23 05:33 Absolute Nucleated RBC 0.00 x10^3/uL 04/28/23 05:33 Total Counted 100 04/25/23 05:33 Band Neuts % (Manual) Not Reportable 04/28/23 05:33 Abnorm Lymph % (Manual) Not Reportable 04/28/23 05:33 Nucleated RBC % 0.0 /100WBC 04/28/23 05:33 Neutrophils # (Manual) Not Reportable 04/28/23 05:33 Lymphocytes # (Manual) Not Reportable 04/28/23 05:33 Monocytes # (Manual) Not Reportable 04/28/23 05:33 Eosinophils # (Manual) Not Reportable 04/28/23 05:33 Basophils # (Manual) Not Reportable 04/28/23 05:33 Differential Comment MANUAL=AUTO DIFF 04/28/23 05:33 Manual Slide Review Indicated 04/26/23 05:34 WBC Morphology 1+ TOXIC GRANULATION (NORMAL) 04/23/23 22:13 Platelet Estimate NORMAL (130-450,000) (NORMAL) 04/28/23 05:33 Platelet Morphology NORMAL APPEARANCE (NORMAL) 04/28/23 05:33 RBC Morph Micro Appear 1+ ANISOCYTOSIS (NORMAL) 04/28/23 05:33 Sodium 128 mmol/L (135-145) L 04/29/23 05:09 Potassium 4.0 mmol/L (3.5-4.5) 04/29/23 05:09 Chloride 94 mmol/L (101-111) L 04/29/23 05:09 Carbon Dioxide 28 mmol/L (21-32) 04/29/23 05:09 Anion Gap 6.0 (6-13) 04/29/23 05:09 BUN 18 mg/dL (6-20) 04/29/23 05:09 Creatinine 1.1 mg/dL (0.6-1.3) 04/29/23 05:09 Estimated GFR (MDRD) 65 (>89) L 04/29/23 05:09 Glucose 105 mg/dL (74-104) H 04/29/23 05:09 Lactic Acid 0.9 mmol/L (0.5-2.2) 04/24/23 04:57 Calcium 8.4 mg/dL (8.5-10.3) L 04/29/23 05:09 Magnesium 1.6 mg/dL (1.7-2.3) L 04/29/23 05:09 Total Bilirubin 0.8 mg/dL (0.2-1.0) 04/25/23 05:33 AST 16 IU/L (10-42) 04/25/23 05:33 ALT 14 IU/L (10-60) 04/25/23 05:33 Alkaline Phosphatase 54 IU/L (42-121) 04/25/23 05:33 Total Protein 5.2 g/dL (6.4-8.9) L 04/25/23 05:33 Albumin 2.4 g/dL (3.2-5.5) L 04/25/23 05:33 Globulin 2.8 g/dL (2.1-4.2) 04/25/23 05:33 Albumin/Globulin Ratio 0.9 (1.0-2.2) L 04/25/23 05:33 Lipase < 10 U/L (11-82) L 04/23/23 22:13 Procalcitonin Immunoas 0.13 ng/mL (<0.5) 04/25/23 05:33 Urine Color YELLOW 04/24/23 00:55 Urine Clarity CLEAR (CLEAR) 04/24/23 00:55 Urine pH 6.0 PH (5.0-7.5) 04/24/23 00:55 Ur Specific [place] 1.010 (1.002-1.030) 04/24/23 00:55 Urine Protein NEGATIVE mg/dL (NEGATIVE) 04/24/23 00:55 Urine Glucose (UA) NEGATIVE mg/dL (NEGATIVE) 04/24/23 00:55 Urine Ketones 15 mg/dL (NEGATIVE) H 04/24/23 00:55 Urine Occult Blood MODERATE (NEGATIVE) H 04/24/23 00:55 Urine Nitrite NEGATIVE (NEGATIVE) 04/24/23 00:55 Urine Bilirubin NEGATIVE (NEGATIVE) 04/24/23 00:55 Urine Urobilinogen 0.2 (NORMAL) E.U./dL (NORMAL) 04/24/23 00:55 Ur Leukocyte Esterase NEGATIVE (NEGATIVE) 04/24/23 00:55 Urine RBC 11-25 /HPF (0-5) H 04/24/23 00:55 Urine WBC 0-3 /HPF (0-3) 04/24/23 00:55 Ur Squamous Epith Cells RARE Squamous (<= Few) 04/24/23 00:55 Urine Bacteria None Seen /HPF (None Seen) 04/24/23 00:55 Ur Microscopic Review INDICATED 04/24/23 00:55 Urine Culture Comments NOT INDICATED 04/24/23 00:55 Urine Sodium 57.2 mmol/L 04/25/23 10:30 Nasal Adenovirus (PCR) NOT DETECTED 04/23/23 22:13 Nasal B. parapertussis DNA (PCR) NOT DETECTED 04/23/23 22:13 Nasal Coronavir 229E PCR NOT DETECTED 04/23/23 22:13 Nasal Coronavir HKU1 PCR NOT DETECTED 04/23/23 22:13 Nasal Coronavir NL63 PCR NOT DETECTED 04/23/23 22:13 Nasal Coronavir OC43 PCR NOT DETECTED 04/23/23 22:13 Nasal Enterovir/Rhinovir PCR DETECTED A 04/23/23 22:13 Nasal Influenza B PCR NOT DETECTED 04/23/23 22:13 Nasal Influenza A PCR NOT DETECTED 04/23/23 22:13 Nasal Parainfluen 1 PCR NOT DETECTED 04/23/23 22:13 Nasal Parainfluen 2 PCR NOT DETECTED 04/23/23 22:13 Nasal Parainfluen 3 PCR NOT DETECTED 04/23/23 22:13 Nasal Parainfluen 4 PCR NOT DETECTED 04/23/23 22:13 Nasal RSV (PCR) NOT DETECTED 04/23/23 22:13 Nasal B.pertussis DNA PCR NOT DETECTED 04/23/23 22:13 Nasal C.pneumoniae (PCR) NOT DETECTED 04/23/23 22:13 Robin Human Metapneumo PCR NOT DETECTED 04/23/23 22:13 Nasal M.pneumoniae (PCR) NOT DETECTED 04/23/23 22:13 Nasal SARS-CoV-2 (PCR) NOT DETECTED 04/23/23 22:13
[2023-04-30 07:27] LABS: CALCIUM 8.4 mg/dL (8.5-10.3); POTASSIUM 4.1 mmol/L (3.5-4.5)
[2023-04-30] MEDS: guaiFENesin/CODEINE 5 ML UDC PO PRN (09:04)
[2023-04-30] MEDS: MAGNESIUM OXIDE 400 MG TABLET PO SCH (09:05)
[2023-04-30] MEDS: FUROSEMIDE 20 MG TABLET PO SCH (12:11)
[2023-04-30] MEDS: SODIUM CHLORIDE 1 GM TABLET PO SCH (21:23)
--- NOTE | 2023-04-30 22:13 | PROVIDER PROGRESS NOTE ---
Assessment/Plan - Problem List (1) Hyponatremia Assessment/Plan: Increase salt tablets to 1 g twice daily. Start free water restriction, maximum 1200 cc/day Lasix 10 mg x 1 today. Follow BMP daily (2) SIADH Assessment/Plan: Increase salt tablets to 1 g twice daily. Continue fluid restriction. (3) Orthostatic hypotension Assessment/Plan: Echocardiogram ordered for patient. Discontinue Cardura. Patient not ready for discharge given orthostatic hypotension. (4) Fall at home Assessment/Plan: PT OT is recommending SNF. Falls may be related to orthostatic hypotension. (5) Community acquired pneumonia Assessment/Plan: Patient grew beta-hemolytic strep from his sputum.He has completed a course of Levofloxacin. (6) Infection due to beta-hemolytic Streptococcus Assessment/Plan: He has completed a course of levofloxacin. (7) Enterovirus/Rhinovirus infection Assessment/Plan: Plan: Symptomatic treatment for these problems is planned with Tylenol as needed, Afrin as needed, Cepacol lozenges. No specific treatment is available for these viruses, which was explained to pt and his spouse at bedside (8) S/P Craniotomy Assessment/Plan: Craniotomy performed for trigeminal neuralgia many years ago may have resulted in SIADH. (9) Hx of essential hypertension Assessment/Plan: Plan: Continue amlodipineand atenolol. - Current Meds Current Meds: Current Medications Generic Name Dose Route Start Last Admin Trade Name Freq PRN Reason Stop Dose Admin Acetaminophen 650 mg 04/25/23 02:12 04/30/23 17:50 Acetaminophen 325 Mg Tablet PO 650 mg Q4HR PRN Administration Pain or Fever > 38C (100.4F) Amlodipine Besylate 2.5 mg 04/25/23 21:00 04/30/23 21:23 Amlodipine 5 Mg Tablet PO 2.5 mg QPM MATTHEW Administration Atenolol 50 mg 04/25/23 09:00 04/30/23 09:05 Atenolol 25 Mg Tablet PO 50 mg DAILY MATTHEW Administration Enoxaparin Sodium 40 mg 04/25/23 09:00 04/30/23 09:04 Enoxaparin 40 Mg/0.4 Ml Syringe SUBQ 40 mg DAILY MATTHEW Administration Guaifenesin 600 mg 04/25/23 09:00 04/30/23 21:22 Guaifenesin 600 Mg Tablet PO 600 mg BID MATTHEW Administration Guaifenesin/Codeine Phosphate 5 ml 04/25/23 07:59 04/30/23 09:04 Guaifenesin/Codeine 5 Ml Udc PO 5 ml Q6HR PRN Administration Cough Lidocaine 1 patch 04/27/23 16:48 04/30/23 09:05 Lidocaine Patch 4% TOP 1 patch DAILY MATTHEW Administration Magnesium Oxide 400 mg 04/30/23 08:00 04/30/23 09:05 Magnesium Oxide 400 Mg Tablet PO 400 mg DAILYWM MATTHEW Administration Multi-Ingredient Ointment 1 applic 04/29/23 18:57 04/29/23 20:29 Zinc Oxide 20% Oint 30 Gm Tube TOP 1 applic PRN PRN Administration Skin Care Pantoprazole Sodium 40 mg 04/26/23 07:00 04/30/23 07:38 Pantoprazole 40 Mg Tablet PO 40 mg QDAC MATTHEW Administration Polyethylene Glycol 17 gm 04/29/23 09:00 04/30/23 09:05 Polyethylene Glycol 3350 17 Gm Packet PO Not Given DAILY MATTHEW Pravastatin Sodium 10 mg 04/25/23 21:00 04/30/23 21:22 Pravastatin 10 Mg Tablet PO 10 mg QPM MATTHEW Administration Sodium Chloride 10 ml 04/25/23 01:00 04/30/23 17:51 Sodium Chloride Flush 0.9% 10 Ml Syringe IVP 10 ml 0100,0900,1700 MATTHEW Administration Sodium Chloride 1 gm 04/30/23 21:00 04/30/23 21:23 Sodium Chloride 1 Gm Tablet PO 1 gm BID MATTHEW Administration - Lab Result Fish Bone Diagrams: 04/28/23 05:33 04/30/23 05:50 - Additional Planning My Orders: My Active Orders 04/30/23 08:00 Magnesium Oxide [Mag Ox] 400 mg PO DAILYWM 04/30/23 21:00 Sodium Chloride [Salt Tab] 1 gm PO BID Subjective - Subjective Patient Reports: Other (Alert. Complaining of intermittent diz ziness/lightheadedness while sitting up and upon standing. He continues to feel weak. He has no other complaints at this time.) Objective Vital Signs: Vital Signs - 24 hr 04/30/23 04/30/23 04/30/23 01:00 05:34 07:38 Temperature 36.8 C 36.7 C 36.7 C Heart Rate [ 74 69 72 Brachial] Respiratory 18 16 14 Rate Blood Pressure 155/81 H 121/67 140/72 H [Right Brachial artery] O2 Saturation 97 96 93 04/30/23 04/30/23 04/30/23 13:00 15:44 21:00 Temperature 36.9 C 36.7 C 36.7 C Heart Rate [ 70 67 66 Brachial] Respiratory 16 24 24 Rate Blood Pressure 137/70 H 144/71 H 139/69 H [Right Brachial artery] O2 Saturation 95 96 95 Oxygen O2 Source Room air Oxygen Flow Rate 2 I&O (Last 24 Hrs): Intake and Output Totals x24h 04/28/23 04/29/23 04/30/23 23:59 23:59 23:59 Intake Total 1150 820 950 Output Total 3325 1500 3420 Balance -7254 -459 -4849 General: Alert, No acute distress HEENT: Atraumatic Neck: Supple, No JVD, No thyromegaly Lymphatic: no adenopathy Neuro: Alert, Non Focal Cardiovascular: Regular rate, Normal S1, Normal S2 Respiratory: Other (Good air exchange in all lung sanders no wheezing no crackles.) Abdomen: Normal bowel sounds, Soft, No tenderness Extremities: No cyanosis, No edema Skin: No rashes - Results Results: Laboratory Results WBC 6.9 x10^3/uL (4.8-10.8) 04/28/23 05:33 RBC 3.81 10^6/uL (4.70-6.10) L 04/28/23 05:33 Hgb 12.4 g/dL (14.0-18.0) L 04/28/23 05:33 Hct 35.4 % (42.0-52.0) L 04/28/23 05:33 MCV 92.9 fL (80.0-94.0) 04/28/23 05:33 MCH 32.5 pg (27.0-31.0) H 04/28/23 05:33 MCHC 35.0 g/dL (32.0-36.0) 04/28/23 05:33 RDW 13.9 % (12.0-15.0) 04/28/23 05:33 Plt Count 265 10^3/uL (130-450) 04/28/23 05:33 MPV 9.2 fL (7.4-11.4) 04/28/23 05:33 Neut # (Auto) 4.9 10^3/uL (1.5-6.6) 04/28/23 05:33 Lymph # (Auto) 0.7 10^3/uL (1.5-3.5) L 04/28/23 05:33 [place] # (Auto) 0.7 10^3/uL (0.0-1.0) 04/28/23 05:33 Eos # (Auto) 0.3 10^3/uL (0.0-0.7) 04/28/23 05:33 Baso # (Auto) 0.0 10^3/uL (0.0-0.1) 04/28/23 05:33 Absolute Nucleated RBC 0.00 x10^3/uL 04/28/23 05:33 Total Counted 100 04/25/23 05:33 Band Neuts % (Manual) Not Reportable 04/28/23 05:33 Abnorm Lymph % (Manual) Not Reportable 04/28/23 05:33 Nucleated RBC % 0.0 /100WBC 04/28/23 05:33 Neutrophils # (Manual) Not Reportable 04/28/23 05:33 Lymphocytes # (Manual) Not Reportable 04/28/23 05:33 Monocytes # (Manual) Not Reportable 04/28/23 05:33 Eosinophils # (Manual) Not Reportable 04/28/23 05:33 Basophils # (Manual) Not Reportable 04/28/23 05:33 Differential Comment MANUAL=AUTO DIFF 04/28/23 05:33 Manual Slide Review Indicated 04/26/23 05:34 WBC Morphology 1+ TOXIC GRANULATION (NORMAL) 04/23/23 22:13 Platelet Estimate NORMAL (130-450,000) (NORMAL) 04/28/23 05:33 Platelet Morphology NORMAL APPEARANCE (NORMAL) 04/28/23 05:33 RBC Morph Micro Appear 1+ ANISOCYTOSIS (NORMAL) 04/28/23 05:33 Sodium 127 mmol/L (135-145) L 04/30/23 05:50 Potassium 4.1 mmol/L (3.5-4.5) 04/30/23 05:50 Chloride 95 mmol/L (101-111) L 04/30/23 05:50 Carbon Dioxide 26 mmol/L (21-32) 04/30/23 05:50 Anion Gap 6.0 (6-13) 04/30/23 05:50 BUN 20 mg/dL (6-20) 04/30/23 05:50 Creatinine 1.0 mg/dL (0.6-1.3) 04/30/23 05:50 Estimated GFR (MDRD) 72 (>89) L 04/30/23 05:50 Glucose 95 mg/dL (74-104) 04/30/23 05:50 Lactic Acid 0.9 mmol/L (0.5-2.2) 04/24/23 04:57 Calcium 8.4 mg/dL (8.5-10.3) L 04/30/23 05:50 Magnesium 1.6 mg/dL (1.7-2.3) L 04/29/23 05:09 Total Bilirubin 0.8 mg/dL (0.2-1.0) 04/25/23 05:33 AST 16 IU/L (10-42) 04/25/23 05:33 ALT 14 IU/L (10-60) 04/25/23 05:33 Alkaline Phosphatase 54 IU/L (42-121) 04/25/23 05:33 Total Protein 5.2 g/dL (6.4-8.9) L 04/25/23 05:33 Albumin 2.4 g/dL (3.2-5.5) L 04/25/23 05:33 Globulin 2.8 g/dL (2.1-4.2) 04/25/23 05:33 Albumin/Globulin Ratio 0.9 (1.0-2.2) L 04/25/23 05:33 Lipase < 10 U/L (11-82) L 04/23/23 22:13 Procalcitonin Immunoas 0.13 ng/mL (<0.5) 04/25/23 05:33 Urine Color YELLOW 04/24/23 00:55 Urine Clarity CLEAR (CLEAR) 04/24/23 00:55 Urine pH 6.0 PH (5.0-7.5) 04/24/23 00:55 Ur Specific Le[place] 1.010 (1.002-1.030) 04/24/23 00:55 Urine Protein NEGATIVE mg/dL (NEGATIVE) 04/24/23 00:55 Urine Glucose (UA) NEGATIVE mg/dL (NEGATIVE) 04/24/23 00:55 Urine Ketones 15 mg/dL (NEGATIVE) H 04/24/23 00:55 Urine Occult Blood MODERATE (NEGATIVE) H 04/24/23 00:55 Urine Nitrite NEGATIVE (NEGATIVE) 04/24/23 00:55 Urine Bilirubin NEGATIVE (NEGATIVE) 04/24/23 00:55 Urine Urobilinogen 0.2 (NORMAL) E.U./dL (NORMAL) 04/24/23 00:55 Ur Leukocyte Esterase NEGATIVE (NEGATIVE) 04/24/23 00:55 Urine RBC 11-25 /HPF (0-5) H 04/24/23 00:55 Urine WBC 0-3 /HPF (0-3) 04/24/23 00:55 Ur Squamous Epith Cells RARE Squamous (<= Few) 04/24/23 00:55 Urine Bacteria None Seen /HPF (None Seen) 04/24/23 00:55 Ur Microscopic Review INDICATED 04/24/23 00:55 Urine Culture Comments NOT INDICATED 04/24/23 00:55 Urine Sodium 57.2 mmol/L 04/25/23 10:30 Nasal Adenovirus (PCR) NOT DETECTED 04/23/23 22:13 Nasal B. parapertussis DNA (PCR) NOT DETECTED 04/23/23 22:13 Nasal Coronavir 229E PCR NOT DETECTED 04/23/23 22:13 Nasal Coronavir HKU1 PCR NOT DETECTED 04/23/23 22:13 Nasal Coronavir NL63 PCR NOT DETECTED 04/23/23 22:13 Nasal Coronavir OC43 PCR NOT DETECTED 04/23/23 22:13 Nasal Enterovir/Rhinovir PCR DETECTED A 04/23/23 22:13 Nasal Influenza B PCR NOT DETECTED 04/23/23 22:13 Nasal Influenza A PCR NOT DETECTED 04/23/23 22:13 Nasal Parainfluen 1 PCR NOT DETECTED 04/23/23 22:13 Nasal Parainfluen 2 PCR NOT DETECTED 04/23/23 22:13 Nasal Parainfluen 3 PCR NOT DETECTED 04/23/23 22:13 Nasal Parainfluen 4 PCR NOT DETECTED 04/23/23 22:13 Nasal RSV (PCR) NOT DETECTED 04/23/23 22:13 Nasal B.pertussis DNA PCR NOT DETECTED 04/23/23 22:13 Nasal C.pneumoniae (PCR) NOT DETECTED 04/23/23 22:13 [place] Human Metapneumo PCR NOT DETECTED 04/23/23 22:13 Nasal M.pneumoniae (PCR) NOT DETECTED 04/23/23 22:13 Nasal SARS-CoV-2 (PCR) NOT DETECTED 04/23/23 22:13
[2023-05-01 06:10] LABS: CALCIUM 8.5 mg/dL (8.5-10.3); POTASSIUM 4.1 mmol/L (3.5-4.5)
[2023-05-01] MEDS: FUROSEMIDE 20 MG TABLET PO SCH (08:29)
--- NOTE | 2023-05-01 21:37 | PROVIDER PROGRESS NOTE ---
Assessment/Plan - Problem List (1) Hyponatremia Assessment/Plan: Continue salt tablets to 1 g twice daily. Start free water restriction, maximum 1200 cc/day Lasix 10 mg x 1 today. Follow BMP daily (2) SIADH Assessment/Plan: Continue salt tablets to 1 g twice daily. Continue fluid restriction. (3) Orthostatic hypotension Assessment/Plan: Cardura discontinued and orthostatic hypotension has significantly improved.. Continue to monitor. (4) Fall at home Assessment/Plan: PT OT is recommending SNF. Falls may be related to orthostatic hypotension. (5) Community acquired pneumonia Assessment/Plan: Patient grew beta-hemolytic strep from his sputum.He has completed a course of Levofloxacin. (6) Infection due to beta-hemolytic Streptococcus Assessment/Plan: He has completed a course of levofloxacin. (7) Enterovirus/Rhinovirus infection Assessment/Plan: Plan: Symptomatic treatment for these problems is planned with Tylenol as needed, Afrin as needed, Cepacol lozenges. No specific treatment is available for these viruses, which was explained to pt and his spouse at bedside (8) S/P Craniotomy Assessment/Plan: Craniotomy performed for trigeminal neuralgia many years ago may have resulted in SIADH. (9) Hx of essential hypertension Assessment/Plan: Plan: Continue amlodipine and atenolol. - Current Meds Current Meds: Current Medications Generic Name Dose Route Start Last Admin Trade Name Freq PRN Reason Stop Dose Admin Acetaminophen 650 mg 04/25/23 02:12 05/01/23 17:16 Acetaminophen 325 Mg Tablet PO 650 mg Q4HR PRN Administration Pain or Fever > 38C (100.4F) Amlodipine Besylate 2.5 mg 04/25/23 21:00 05/01/23 20:19 Amlodipine 5 Mg Tablet PO 2.5 mg QPM MATTHEW Administration Atenolol 50 mg 04/25/23 09:00 05/01/23 08:30 Atenolol 25 Mg Tablet PO 50 mg DAILY MATTHEW Administration Enoxaparin Sodium 40 mg 04/25/23 09:00 05/01/23 08:30 Enoxaparin 40 Mg/0.4 Ml Syringe SUBQ 40 mg DAILY MATTHEW Administration Furosemide 20 mg 05/01/23 09:00 05/01/23 08:29 Furosemide 20 Mg Tablet PO 20 mg DAILY MATTHEW Administration Guaifenesin 600 mg 04/25/23 09:00 05/01/23 20:19 Guaifenesin 600 Mg Tablet PO 600 mg BID MATTHEW Administration Guaifenesin/Codeine Phosphate 5 ml 04/25/23 07:59 04/30/23 09:04 Guaifenesin/Codeine 5 Ml Udc PO 5 ml Q6HR PRN Administration Cough Lidocaine 1 patch 04/27/23 16:48 05/01/23 08:29 Lidocaine Patch 4% TOP 05/02/23 08:59 1 patch DAILY MATTHEW Administration Magnesium Oxide 400 mg 04/30/23 08:00 05/01/23 08:29 Magnesium Oxide 400 Mg Tablet PO 400 mg DAILYWM MATTHEW Administration Multi-Ingredient Ointment 1 applic 04/29/23 18:57 05/01/23 17:17 Zinc Oxide 20% Oint 30 Gm Tube TOP 1 applic PRN PRN Administration Skin Care Pantoprazole Sodium 40 mg 04/26/23 07:00 05/01/23 05:18 Pantoprazole 40 Mg Tablet PO 40 mg QDAC MATTHEW Administration Polyethylene Glycol 17 gm 04/29/23 09:00 05/01/23 08:30 Polyethylene Glycol 3350 17 Gm Packet PO 17 gm DAILY MATTHEW Administration Pravastatin Sodium 10 mg 04/25/23 21:00 05/01/23 20:19 Pravastatin 10 Mg Tablet PO 10 mg QPM MATTHEW Administration Sodium Chloride 10 ml 04/25/23 01:00 05/01/23 17:17 Sodium Chloride Flush 0.9% 10 Ml Syringe IVP 10 ml 0100,0900,1700 MATTHEW Administration Sodium Chloride 1 gm 04/30/23 21:00 05/01/23 20:19 Sodium Chloride 1 Gm Tablet PO 1 gm BID MATTHEW Administration - Lab Result Fish Bone Diagrams: 04/28/23 05:33 05/01/23 05:14 - Additional Planning My Orders: My Active Orders 04/30/23 21:00 Sodium Chloride [Salt Tab] 1 gm PO BID 05/01/23 09:00 Furosemide [Lasix] 20 mg PO DAILY Subjective - Subjective Patient Reports: Other (Alert. He denies chest pain and abdominal pain. He continues to have episodes of shortness of breath and cough.) Objective Vital Signs: Vital Signs - 24 hr 05/01/23 05/01/23 05/01/23 00:47 05:13 08:14 Temperature 36.5 C 36.6 C 36.4 C L Heart Rate [ 69 67 71 Brachial] Respiratory 20 18 20 Rate Blood Pressure 150/96 H 137/70 H 132/71 H [Right Brachial artery] O2 Saturation 93 96 96 05/01/23 05/01/23 05/01/23 13:03 16:06 20:34 Temperature 36.7 C 36.7 C 36.7 C Heart Rate [ 73 71 71 Brachial] Respiratory 18 20 20 Rate Blood Pressure 130/74 155/76 H 145/68 H [Right Brachial artery] O2 Saturation 97 97 96 Oxygen O2 Source Room air Oxygen Flow Rate 2 I&O (Last 24 Hrs): Intake and Output Totals x24h 04/29/23 04/30/23 05/01/23 23:59 23:59 23:59 Intake Total 820 950 915 Output Total 1500 3420 2000 Balance -346 -9600 -9279 General: Alert, Oriented x3, No acute distress Neck: Supple, No JVD, No thyromegaly Lymphatic: no adenopathy Neuro: Alert, Non Focal Cardiovascular: Regular rate, Normal S1, Normal S2 Respiratory: Other (Fair air exchange in all lung sanders no wheezing no crackles.) Abdomen: Normal bowel sounds, No tenderness Extremities: No cyanosis Skin: No rashes - Results Results: Laboratory Results WBC 6.9 x10^3/uL (4.8-10.8) 04/28/23 05:33 RBC 3.81 10^6/uL (4.70-6.10) L 04/28/23 05:33 Hgb 12.4 g/dL (14.0-18.0) L 04/28/23 05:33 Hct 35.4 % (42.0-52.0) L 04/28/23 05:33 MCV 92.9 fL (80.0-94.0) 04/28/23 05:33 MCH 32.5 pg (27.0-31.0) H 04/28/23 05:33 MCHC 35.0 g/dL (32.0-36.0) 04/28/23 05:33 RDW 13.9 % (12.0-15.0) 04/28/23 05:33 Plt Count 265 10^3/uL (130-450) 04/28/23 05:33 MPV 9.2 fL (7.4-11.4) 04/28/23 05:33 Neut # (Auto) 4.9 10^3/uL (1.5-6.6) 04/28/23 05:33 Lymph # (Auto) 0.7 10^3/uL (1.5-3.5) L 04/28/23 05:33 [place] # (Auto) 0.7 10^3/uL (0.0-1.0) 04/28/23 05:33 Eos # (Auto) 0.3 10^3/uL (0.0-0.7) 04/28/23 05:33 Baso # (Auto) 0.0 10^3/uL (0.0-0.1) 04/28/23 05:33 Absolute Nucleated RBC 0.00 x10^3/uL 04/28/23 05:33 Total Counted 100 04/25/23 05:33 Band Neuts % (Manual) Not Reportable 04/28/23 05:33 Abnorm Lymph % (Manual) Not Reportable 04/28/23 05:33 Nucleated RBC % 0.0 /100WBC 04/28/23 05:33 Neutrophils # (Manual) Not Reportable 04/28/23 05:33 Lymphocytes # (Manual) Not Reportable 04/28/23 05:33 Monocytes # (Manual) Not Reportable 04/28/23 05:33 Eosinophils # (Manual) Not Reportable 04/28/23 05:33 Basophils # (Manual) Not Reportable 04/28/23 05:33 Differential Comment MANUAL=AUTO DIFF 04/28/23 05:33 Manual Slide Review Indicated 04/26/23 05:34 WBC Morphology 1+ TOXIC GRANULATION (NORMAL) 04/23/23 22:13 Platelet Estimate NORMAL (130-450,000) (NORMAL) 04/28/23 05:33 Platelet Morphology NORMAL APPEARANCE (NORMAL) 04/28/23 05:33 RBC Morph Micro Appear 1+ ANISOCYTOSIS (NORMAL) 04/28/23 05:33 Sodium 126 mmol/L (135-145) L 05/01/23 05:14 Potassium 4.1 mmol/L (3.5-4.5) 05/01/23 05:14 Chloride 93 mmol/L (101-111) L 05/01/23 05:14 Carbon Dioxide 27 mmol/L (21-32) 05/01/23 05:14 Anion Gap 6.0 (6-13) 05/01/23 05:14 BUN 21 mg/dL (6-20) H 05/01/23 05:14 Creatinine 1.0 mg/dL (0.6-1.3) 05/01/23 05:14 Estimated GFR (MDRD) 72 (>89) L 05/01/23 05:14 Glucose 95 mg/dL (74-104) 05/01/23 05:14 Lactic Acid 0.9 mmol/L (0.5-2.2) 04/24/23 04:57 Calcium 8.5 mg/dL (8.5-10.3) 05/01/23 05:14 Magnesium 1.6 mg/dL (1.7-2.3) L 04/29/23 05:09 Total Bilirubin 0.8 mg/dL (0.2-1.0) 04/25/23 05:33 AST 16 IU/L (10-42) 04/25/23 05:33 ALT 14 IU/L (10-60) 04/25/23 05:33 Alkaline Phosphatase 54 IU/L (42-121) 04/25/23 05:33 Total Protein 5.2 g/dL (6.4-8.9) L 04/25/23 05:33 Albumin 2.4 g/dL (3.2-5.5) L 04/25/23 05:33 Globulin 2.8 g/dL (2.1-4.2) 04/25/23 05:33 Albumin/Globulin Ratio 0.9 (1.0-2.2) L 04/25/23 05:33 Lipase < 10 U/L (11-82) L 04/23/23 22:13 Procalcitonin Immunoas 0.13 ng/mL (<0.5) 04/25/23 05:33 Urine Color YELLOW 04/24/23 00:55 Urine Clarity CLEAR (CLEAR) 04/24/23 00:55 Urine pH 6.0 PH (5.0-7.5) 04/24/23 00:55 Ur Specific [place] 1.010 (1.002-1.030) 04/24/23 00:55 Urine Protein NEGATIVE mg/dL (NEGATIVE) 04/24/23 00:55 Urine Glucose (UA) NEGATIVE mg/dL (NEGATIVE) 04/24/23 00:55 Urine Ketones 15 mg/dL (NEGATIVE) H 04/24/23 00:55 Urine Occult Blood MODERATE (NEGATIVE) H 04/24/23 00:55 Urine Nitrite NEGATIVE (NEGATIVE) 04/24/23 00:55 Urine Bilirubin NEGATIVE (NEGATIVE) 04/24/23 00:55 Urine Urobilinogen 0.2 (NORMAL) E.U./dL (NORMAL) 04/24/23 00:55 Ur Leukocyte Esterase NEGATIVE (NEGATIVE) 04/24/23 00:55 Urine RBC 11-25 /HPF (0-5) H 04/24/23 00:55 Urine WBC 0-3 /HPF (0-3) 04/24/23 00:55 Ur Squamous Epith Cells RARE Squamous (<= Few) 04/24/23 00:55 Urine Bacteria None Seen /HPF (None Seen) 04/24/23 00:55 Ur Microscopic Review INDICATED 04/24/23 00:55 Urine Culture Comments NOT INDICATED 04/24/23 00:55 Urine Sodium 57.2 mmol/L 04/25/23 10:30 Nasal Adenovirus (PCR) NOT DETECTED 04/23/23 22:13 Nasal B. parapertussis DNA (PCR) NOT DETECTED 04/23/23 22:13 Nasal Coronavir 229E PCR NOT DETECTED 04/23/23 22:13 Nasal Coronavir HKU1 PCR NOT DETECTED 04/23/23 22:13 Nasal Coronavir NL63 PCR NOT DETECTED 04/23/23 22:13 Nasal Coronavir OC43 PCR NOT DETECTED 04/23/23 22:13 Nasal Enterovir/Rhinovir PCR DETECTED A 04/23/23 22:13 Nasal Influenza B PCR NOT DETECTED 04/23/23 22:13 Nasal Influenza A PCR NOT DETECTED 04/23/23 22:13 Nasal Parainfluen 1 PCR NOT DETECTED 04/23/23 22:13 Nasal Parainfluen 2 PCR NOT DETECTED 04/23/23 22:13 Nasal Parainfluen 3 PCR NOT DETECTED 04/23/23 22:13 Nasal Parainfluen 4 PCR NOT DETECTED 04/23/23 22:13 Nasal RSV (PCR) NOT DETECTED 04/23/23 22:13 Nasal B.pertussis DNA PCR NOT DETECTED 04/23/23 22:13 Nasal C.pneumoniae (PCR) NOT DETECTED 04/23/23 22:13 Robin Human Metapneumo PCR NOT DETECTED 04/23/23 22:13 Nasal M.pneumoniae (PCR) NOT DETECTED 04/23/23 22:13 Nasal SARS-CoV-2 (PCR) NOT DETECTED 04/23/23 22:13
[2023-05-02 08:11] LABS: ALBUMIN 3.2 g/dL (3.2-5.5); BILIRUBIN,TOTAL 0.7 mg/dL (0.2-1.0); CALCIUM 8.9 mg/dL (8.5-10.3); MAGNESIUM 1.6 mg/dL (1.7-2.3); PHOSPHORUS 2.8 mg/dL (2.5-5.0); POTASSIUM 4.4 mmol/L (3.5-4.5); TOTAL PROTEIN 6.5 g/dL (6.4-8.9)
[2023-05-02] MEDS: LIDOCAINE PATCH 5% TOP SCH (08:45)
[2023-05-02] MEDS: SODIUM CHLORIDE 1 GM TABLET PO SCH (13:45)
--- NOTE | 2023-05-02 21:03 | PROVIDER PROGRESS NOTE ---
Assessment/Plan - Problem List (1) Hyponatremia Assessment/Plan: Continue salt tablets to 1 g 3 times a day. daily. Continue free water restriction, maximum 1200 cc/day Urine lytes and urine osmol reordered. Patient continues to qualify for in hospital treatment given the fact that his serum sodium remains at 126. The etiology of his hyponatremia is not clear and may be related to SIADH. Urine awesome's and urine lites have been ordered. TSH and cortisol has also been ordered for the morning. 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 Continue salt tablets to 1 g twice daily. Continue fluid restriction. (3) Orthostatic hypotension Assessment/Plan: Cardura discontinued and orthostatic hypotension has significantly improved. Continue to monitor. (4) Fall at home Assessment/Plan: PT OT is recommending SNF. Falls may be related to orthostatic hypotension. (5) Community acquired pneumonia Assessment/Plan: Patient grew beta-hemolytic strep from his sputum.He has completed a course of Levofloxacin. (6) Infection due to beta-hemolytic Streptococcus Assessment/Plan: He has completed a course of levofloxacin. (7) Enterovirus/Rhinovirus infection Assessment/Plan: Plan: Symptomatic treatment for these problems is planned with Tylenol as needed, Afrin as needed, Cepacol lozenges. No specific treatment is available for these viruses, which was explained to pt and his spouse at bedside (8) S/P Craniotomy Assessment/Plan: Craniotomy performed for trigeminal neuralgia many years ago may have resulted in SIADH. (9) Hx of essential hypertension Assessment/Plan: Plan: Continue amlodipine and atenolol. Plan for discharge:[facility] facility once he is medically cleared. - Current Meds Current Meds: Current Medications Generic Name Dose Route Start Last Admin Trade Name Freq PRN Reason Stop Dose Admin Acetaminophen 650 mg 04/25/23 02:12 05/02/23 13:45 Acetaminophen 325 Mg Tablet PO 650 mg Q4HR PRN Administration Pain or Fever > 38C (100.4F) Amlodipine Besylate 2.5 mg 04/25/23 21:00 05/01/23 20:19 Amlodipine 5 Mg Tablet PO 2.5 mg QPM MATTHEW Administration Atenolol 50 mg 04/25/23 09:00 05/02/23 08:44 Atenolol 25 Mg Tablet PO 50 mg DAILY MATTHEW Administration Enoxaparin Sodium 40 mg 04/25/23 09:00 05/02/23 08:45 Enoxaparin 40 Mg/0.4 Ml Syringe SUBQ 40 mg DAILY MATTHEW Administration Furosemide 20 mg 05/01/23 09:00 05/02/23 08:45 Furosemide 20 Mg Tablet PO 20 mg DAILY MATTHEW Administration Guaifenesin 600 mg 04/25/23 09:00 05/02/23 08:45 Guaifenesin 600 Mg Tablet PO 600 mg BID MATTHEW Administration Guaifenesin/Codeine Phosphate 5 ml 04/25/23 07:59 04/30/23 09:04 Guaifenesin/Codeine 5 Ml Udc PO 5 ml Q6HR PRN Administration Cough Lidocaine 1 patch 05/02/23 09:00 05/02/23 08:45 Lidocaine Patch 5% TOP 1 patch DAILY MATTHEW Administration Magnesium Oxide 400 mg 04/30/23 08:00 05/02/23 08:45 Magnesium Oxide 400 Mg Tablet PO 400 mg DAILYWM MATTHEW Administration Multi-Ingredient Ointment 1 applic 04/29/23 18:57 05/02/23 00:04 Zinc Oxide 20% Oint 30 Gm Tube TOP 1 applic PRN PRN Administration Skin Care Pantoprazole Sodium 40 mg 04/26/23 07:00 05/02/23 06:33 Pantoprazole 40 Mg Tablet PO 40 mg QDAC MATTHEW Administration Polyethylene Glycol 17 gm 04/29/23 09:00 05/02/23 05:32 Polyethylene Glycol 3350 17 Gm Packet PO Not Given DAILY MATTHEW Pravastatin Sodium 10 mg 04/25/23 21:00 05/01/23 20:19 Pravastatin 10 Mg Tablet PO 10 mg QPM MATTHEW Administration Sodium Chloride 10 ml 04/25/23 01:00 05/02/23 08:45 Sodium Chloride Flush 0.9% 10 Ml Syringe IVP 10 ml 0100,0900,1700 MATTHEW Administration Sodium Chloride 1 gm 05/02/23 14:00 05/02/23 13:45 Sodium Chloride 1 Gm Tablet PO 1 gm TID MATTHEW Administration - Lab Result Fish Bone Diagrams: 04/28/23 05:33 05/02/23 07:47 - Additional Planning My Orders: My Active Orders 05/01/23 22:41 Free Water Restriction [RC] IOSHIFT 05/02/23 13:30 OSMOLALITY URINE [REFLAB] Routine 05/02/23 14:00 Sodium Chloride [Salt Tab] 1 gm PO TID 05/03/23 05:00 TSH [THYROID STIMULATING HORMONE] [CHEM] Routine 05/03/23 08:00 CORTISOL RESPONSE TO ACTH [IAI] Routine CORTISOL,AM [CHEM] Routine Subjective - Subjective Patient Reports: Other (Alert. Reports he had a difficult night sleeping. He has no other complaints at this time.) Objective Vital Signs: Vital Signs - 24 hr 05/01/23 05/02/23 05/02/23 23:55 04:23 07:43 Temperature 36.6 C 37.2 C 36.6 C Heart Rate [ 77 74 68 Brachial] Respiratory 20 16 20 Rate Blood Pressure 149/86 H 145/82 H 141/75 H [Right Brachial artery] O2 Saturation 97 96 97 05/02/23 05/02/23 12:45 15:43 Temperature 36.7 C 37.0 C Heart Rate [ 72 74 Brachial] Respiratory 20 18 Rate Blood Pressure 148/83 H 136/69 H [Right Brachial artery] O2 Saturation 97 95 Oxygen O2 Source Room air Oxygen Flow Rate 2 I&O (Last 24 Hrs): Intake and Output Totals x24h 04/30/23 05/01/23 05/02/23 23:59 23:59 23:59 Intake Total 950 915 980 Output Total 3420 2600 1600 Balance -5860 -3283 -373 General: Alert, No acute distress HEENT: Atraumatic Neck: Supple, No JVD Neuro: Alert, Non Focal Cardiovascular: Regular rate, Normal S1, Normal S2 Respiratory: Other (Good air exchange in all lung sanders no wheezing no crackles.) Abdomen: Normal bowel sounds, Soft, No tenderness Extremities: No cyanosis, No edema Skin: No rashes - Results Results: Laboratory Results WBC 6.9 x10^3/uL (4.8-10.8) 04/28/23 05:33 RBC 3.81 10^6/uL (4.70-6.10) L 04/28/23 05:33 Hgb 12.4 g/dL (14.0-18.0) L 04/28/23 05:33 Hct 35.4 % (42.0-52.0) L 04/28/23 05:33 MCV 92.9 fL (80.0-94.0) 04/28/23 05:33 MCH 32.5 pg (27.0-31.0) H 04/28/23 05:33 MCHC 35.0 g/dL (32.0-36.0) 04/28/23 05:33 RDW 13.9 % (12.0-15.0) 04/28/23 05:33 Plt Count 265 10^3/uL (130-450) 04/28/23 05:33 MPV 9.2 fL (7.4-11.4) 04/28/23 05:33 Neut # (Auto) 4.9 10^3/uL (1.5-6.6) 04/28/23 05:33 Lymph # (Auto) 0.7 10^3/uL (1.5-3.5) L 04/28/23 05:33 [place] # (Auto) 0.7 10^3/uL (0.0-1.0) 04/28/23 05:33 Eos # (Auto) 0.3 10^3/uL (0.0-0.7) 04/28/23 05:33 Baso # (Auto) 0.0 10^3/uL (0.0-0.1) 04/28/23 05:33 Absolute Nucleated RBC 0.00 x10^3/uL 04/28/23 05:33 Total Counted 100 04/25/23 05:33 Band Neuts % (Manual) Not Reportable 04/28/23 05:33 Abnorm Lymph % (Manual) Not Reportable 04/28/23 05:33 Nucleated RBC % 0.0 /100WBC 04/28/23 05:33 Neutrophils # (Manual) Not Reportable 04/28/23 05:33 Lymphocytes # (Manual) Not Reportable 04/28/23 05:33 Monocytes # (Manual) Not Reportable 04/28/23 05:33 Eosinophils # (Manual) Not Reportable 04/28/23 05:33 Basophils # (Manual) Not Reportable 04/28/23 05:33 Differential Comment MANUAL=AUTO DIFF 04/28/23 05:33 Manual Slide Review Indicated 04/26/23 05:34 WBC Morphology 1+ TOXIC GRANULATION (NORMAL) 04/23/23 22:13 Platelet Estimate NORMAL (130-450,000) (NORMAL) 04/28/23 05:33 Platelet Morphology NORMAL APPEARANCE (NORMAL) 04/28/23 05:33 RBC Morph Micro Appear 1+ ANISOCYTOSIS (NORMAL) 04/28/23 05:33 Sodium 126 mmol/L (135-145) L 05/02/23 07:47 Potassium 4.4 mmol/L (3.5-4.5) 05/02/23 07:47 Chloride 92 mmol/L (101-111) L 05/02/23 07:47 Carbon Dioxide 29 mmol/L (21-32) 05/02/23 07:47 Anion Gap 5.0 (6-13) L 05/02/23 07:47 BUN 20 mg/dL (6-20) 05/02/23 07:47 Creatinine 1.0 mg/dL (0.6-1.3) 05/02/23 07:47 Estimated GFR (MDRD) 72 (>89) L 05/02/23 07:47 Glucose 106 mg/dL (74-104) H 05/02/23 07:47 Lactic Acid 0.9 mmol/L (0.5-2.2) 04/24/23 04:57 Calcium 8.9 mg/dL (8.5-10.3) 05/02/23 07:47 Phosphorus 2.8 mg/dL (2.5-5.0) 05/02/23 07:47 Magnesium 1.6 mg/dL (1.7-2.3) L 05/02/23 07:47 Total Bilirubin 0.7 mg/dL (0.2-1.0) 05/02/23 07:47 AST 15 IU/L (10-42) 05/02/23 07:47 ALT 14 IU/L (10-60) 05/02/23 07:47 Alkaline Phosphatase 60 IU/L (42-121) 05/02/23 07:47 Total Protein 6.5 g/dL (6.4-8.9) 05/02/23 07:47 Albumin 3.2 g/dL (3.2-5.5) 05/02/23 07:47 Globulin 3.3 g/dL (2.1-4.2) 05/02/23 07:47 Albumin/Globulin Ratio 1.0 (1.0-2.2) 05/02/23 07:47 Lipase < 10 U/L (11-82) L 04/23/23 22:13 Procalcitonin Immunoas 0.13 ng/mL (<0.5) 04/25/23 05:33 Urine Color YELLOW 04/24/23 00:55 Urine Clarity CLEAR (CLEAR) 04/24/23 00:55 Urine pH 6.0 PH (5.0-7.5) 04/24/23 00:55 Ur Specific [place] 1.010 (1.002-1.030) 04/24/23 00:55 Urine Protein NEGATIVE mg/dL (NEGATIVE) 04/24/23 00:55 Urine Glucose (UA) NEGATIVE mg/dL (NEGATIVE) 04/24/23 00:55 Urine Ketones 15 mg/dL (NEGATIVE) H 04/24/23 00:55 Urine Occult Blood MODERATE (NEGATIVE) H 04/24/23 00:55 Urine Nitrite NEGATIVE (NEGATIVE) 04/24/23 00:55 Urine Bilirubin NEGATIVE (NEGATIVE) 04/24/23 00:55 Urine Urobilinogen 0.2 (NORMAL) E.U./dL (NORMAL) 04/24/23 00:55 Ur Leukocyte Esterase NEGATIVE (NEGATIVE) 04/24/23 00:55 Urine RBC 11-25 /HPF (0-5) H 04/24/23 00:55 Urine WBC 0-3 /HPF (0-3) 04/24/23 00:55 Ur Squamous Epith Cells RARE Squamous (<= Few) 04/24/23 00:55 Urine Bacteria None Seen /HPF (None Seen) 04/24/23 00:55 Ur Microscopic Review INDICATED 04/24/23 00:55 Urine Culture Comments NOT INDICATED 04/24/23 00:55 Urine Sodium 133.8 mmol/L 05/02/23 13:30 Nasal Adenovirus (PCR) NOT DETECTED 04/23/23 22:13 Nasal B. parapertussis DNA (PCR) NOT DETECTED 04/23/23 22:13 Nasal Coronavir 229E PCR NOT DETECTED 04/23/23 22:13 Nasal Coronavir HKU1 PCR NOT DETECTED 04/23/23 22:13 Nasal Coronavir NL63 PCR NOT DETECTED 04/23/23 22:13 Nasal Coronavir OC43 PCR NOT DETECTED 04/23/23 22:13 Nasal Enterovir/Rhinovir PCR DETECTED A 04/23/23 22:13 Nasal Influenza B PCR NOT DETECTED 04/23/23 22:13 Nasal Influenza A PCR NOT DETECTED 04/23/23 22:13 Nasal Parainfluen 1 PCR NOT DETECTED 04/23/23 22:13 Nasal Parainfluen 2 PCR NOT DETECTED 04/23/23 22:13 Nasal Parainfluen 3 PCR NOT DETECTED 04/23/23 22:13 Nasal Parainfluen 4 PCR NOT DETECTED 04/23/23 22:13 Nasal RSV (PCR) NOT DETECTED 04/23/23 22:13 Nasal B.pertussis DNA PCR NOT DETECTED 04/23/23 22:13 Nasal C.pneumoniae (PCR) NOT DETECTED 04/23/23 22:13 Robin Human Metapneumo PCR NOT DETECTED 04/23/23 22:13 Nasal M.pneumoniae (PCR) NOT DETECTED 04/23/23 22:13 Nasal SARS-CoV-2 (PCR) NOT DETECTED 04/23/23 22:13
[2023-05-03] MEDS: MAGNESIUM OXIDE 400 MG TABLET PO SCH (08:30)
[2023-05-03 08:45] LABS: CALCIUM 8.7 mg/dL (8.5-10.3); CREATININE 0.8 mg/dL (0.6-1.3); MAGNESIUM 1.7 mg/dL (1.7-2.3); PHOSPHORUS 2.8 mg/dL (2.5-5.0); POTASSIUM 4.3 mmol/L (3.5-4.5)
[2023-05-03 08:56] LABS: THYROID STIMULATING HORMONE 3.38 uIU/mL (0.34-5.60)
[2023-05-03] MEDS: COSYNTROPIN 0.25 MG VIAL IVP ONE (10:58)
[2023-05-03] MEDS: FUROSEMIDE 40 MG TABLET PO SCH (11:40)
--- NOTE | 2023-05-03 22:16 | PROVIDER PROGRESS NOTE ---
Assessment/Plan - Problem List (1) Hyponatremia Assessment/Plan: Continue salt tablets to 1 g 3 times a day. daily. Continue free water restriction, maximum 1200 cc/day Workup for hyponatremia which included repeating urine lites, TSH and cortisol are most consistent with SIADH. Patient continues to qualify for in hospital treatment given the fact that his serum sodium remains low at 128. 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 Continue salt tablets to 1 g twice daily. Continue fluid restriction. (3) Orthostatic hypotension Assessment/Plan: Cardura discontinued and orthostatic hypotension has significantly improved.Orthostatic hypertension has resolved. Continue to monitor. (4) Fall at home Assessment/Plan: PT OT is recommending SNF. Falls may be related to orthostatic hypotension. (5) Community acquired pneumonia Assessment/Plan: Patient grew beta-hemolytic strep from his sputum.He has completed a course of Levofloxacin. (6) Infection due to beta-hemolytic Streptococcus Assessment/Plan: He has completed a course of levofloxacin. (7) Enterovirus/Rhinovirus infection Assessment/Plan: Plan: Symptomatic treatment for these problems is planned with Tylenol as needed, Afrin as needed, Cepacol lozenges. No specific treatment is available for these viruses, which was explained to pt and his spouse at bedside (8) S/P Craniotomy Assessment/Plan: Craniotomy performed for trigeminal neuralgia many years ago may have resulted in SIADH. (9) Hx of essential hypertension Assessment/Plan: Plan: Continue amlodipine and atenolol. Plan for discharge:[facility] facility once he is medically cleared. - Current Meds Current Meds: Current Medications Generic Name Dose Route Start Last Admin Trade Name Freq PRN Reason Stop Dose Admin Acetaminophen 650 mg 04/25/23 02:12 05/03/23 12:55 Acetaminophen 325 Mg Tablet PO 650 mg Q4HR PRN Administration Pain or Fever > 38C (100.4F) Amlodipine Besylate 2.5 mg 04/25/23 21:00 05/03/23 21:12 Amlodipine 5 Mg Tablet PO 2.5 mg QPM MATTHEW Administration Atenolol 50 mg 04/25/23 09:00 05/03/23 08:30 Atenolol 25 Mg Tablet PO 50 mg DAILY MATTHEW Administration Enoxaparin Sodium 40 mg 04/25/23 09:00 05/03/23 08:31 Enoxaparin 40 Mg/0.4 Ml Syringe SUBQ 40 mg DAILY MATTHEW Administration Furosemide 40 mg 05/03/23 11:00 05/03/23 11:40 Furosemide 40 Mg Tablet PO 40 mg DAILY MATTHEW Administration Guaifenesin 600 mg 04/25/23 09:00 05/03/23 21:12 Guaifenesin 600 Mg Tablet PO 600 mg BID MATTHEW Administration Guaifenesin/Codeine Phosphate 5 ml 04/25/23 07:59 04/30/23 09:04 Guaifenesin/Codeine 5 Ml Udc PO 5 ml Q6HR PRN Administration Cough Lidocaine 1 patch 05/02/23 09:00 05/03/23 08:29 Lidocaine Patch 5% TOP 1 patch DAILY MATTHEW Administration Magnesium Oxide 400 mg 05/03/23 09:00 05/03/23 21:12 Magnesium Oxide 400 Mg Tablet PO 400 mg BID MATTHEW Administration Multi-Ingredient Ointment 1 applic 04/29/23 18:57 05/02/23 00:04 Zinc Oxide 20% Oint 30 Gm Tube TOP 1 applic PRN PRN Administration Skin Care Pantoprazole Sodium 40 mg 04/26/23 07:00 05/03/23 05:12 Pantoprazole 40 Mg Tablet PO 40 mg QDAC MATTHEW Administration Polyethylene Glycol 17 gm 04/29/23 09:00 05/03/23 08:28 Polyethylene Glycol 3350 17 Gm Packet PO 17 gm DAILY MATTHEW Administration Pravastatin Sodium 10 mg 04/25/23 21:00 05/03/23 21:12 Pravastatin 10 Mg Tablet PO 10 mg QPM MATTHEW Administration Sodium Chloride 10 ml 04/25/23 01:00 05/03/23 16:11 Sodium Chloride Flush 0.9% 10 Ml Syringe IVP 10 ml 0100,0900,1700 MATTHEW Administration Sodium Chloride 1 gm 05/02/23 14:00 05/03/23 14:00 Sodium Chloride 1 Gm Tablet PO 1 gm TID MATTHEW Administration - Lab Result Fish Bone Diagrams: 04/28/23 05:33 05/03/23 08:00 - Additional Planning My Orders: My Active Orders 05/03/23 09:00 Magnesium Oxide [Mag Ox] 400 mg PO BID 05/03/23 11:00 Furosemide [Lasix] 40 mg PO DAILY Subjective - Subjective Patient Reports: Other (Alert. Continues to complain of feeling cold especially at night. He would like to change to a different room if possible. He has no other complaints at this time.) Objective Vital Signs: Vital Signs - 24 hr 05/02/23 05/03/23 05/03/23 23:23 05:00 08:04 Temperature 36.7 C 36.6 C 36.8 C Heart Rate [ 65 67 69 Brachial] Respiratory 16 16 18 Rate Blood Pressure 135/80 H 140/82 H 130/69 [Right Brachial artery] O2 Saturation 97 97 96 05/03/23 05/03/23 05/03/23 12:57 15:48 20:17 Temperature 36.6 C 37 C 36.8 C Heart Rate [ 69 67 75 Brachial] Respiratory 18 24 20 Rate Blood Pressure 116/72 125/71 128/89 H [Right Brachial artery] O2 Saturation 98 96 99 Oxygen O2 Source Room air Oxygen Flow Rate 2 I&O (Last 24 Hrs): Intake and Output Totals x24h 05/01/23 05/02/23 05/03/23 23:59 23:59 23:59 Intake Total 915 980 440 Output Total 2600 1600 1005 Balance -1685 -620 -565 General: Alert, Oriented x3 Neck: No JVD, No thyromegaly Neuro: Alert, Non Focal Cardiovascular: Regular rate, Normal S1 Respiratory: Other (Good air exchange in all lung sanders no wheezing no crackles.) Abdomen: Normal bowel sounds, Soft Extremities: No cyanosis Skin: No rashes - Results Results: Laboratory Results WBC 6.9 x10^3/uL (4.8-10.8) 04/28/23 05:33 RBC 3.81 10^6/uL (4.70-6.10) L 04/28/23 05:33 Hgb 12.4 g/dL (14.0-18.0) L 04/28/23 05:33 Hct 35.4 % (42.0-52.0) L 04/28/23 05:33 MCV 92.9 fL (80.0-94.0) 04/28/23 05:33 MCH 32.5 pg (27.0-31.0) H 04/28/23 05:33 MCHC 35.0 g/dL (32.0-36.0) 04/28/23 05:33 RDW 13.9 % (12.0-15.0) 04/28/23 05:33 Plt Count 265 10^3/uL (130-450) 04/28/23 05:33 MPV 9.2 fL (7.4-11.4) 04/28/23 05:33 Neut # (Auto) 4.9 10^3/uL (1.5-6.6) 04/28/23 05:33 Lymph # (Auto) 0.7 10^3/uL (1.5-3.5) L 04/28/23 05:33 [place] # (Auto) 0.7 10^3/uL (0.0-1.0) 04/28/23 05:33 Eos # (Auto) 0.3 10^3/uL (0.0-0.7) 04/28/23 05:33 Baso # (Auto) 0.0 10^3/uL (0.0-0.1) 04/28/23 05:33 Absolute Nucleated RBC 0.00 x10^3/uL 04/28/23 05:33 Total Counted 100 04/25/23 05:33 Band Neuts % (Manual) Not Reportable 04/28/23 05:33 Abnorm Lymph % (Manual) Not Reportable 04/28/23 05:33 Nucleated RBC % 0.0 /100WBC 04/28/23 05:33 Neutrophils # (Manual) Not Reportable 04/28/23 05:33 Lymphocytes # (Manual) Not Reportable 04/28/23 05:33 Monocytes # (Manual) Not Reportable 04/28/23 05:33 Eosinophils # (Manual) Not Reportable 04/28/23 05:33 Basophils # (Manual) Not Reportable 04/28/23 05:33 Differential Comment MANUAL=AUTO DIFF 04/28/23 05:33 Manual Slide Review Indicated 04/26/23 05:34 WBC Morphology 1+ TOXIC GRANULATION (NORMAL) 04/23/23 22:13 Platelet Estimate NORMAL (130-450,000) (NORMAL) 04/28/23 05:33 Platelet Morphology NORMAL APPEARANCE (NORMAL) 04/28/23 05:33 RBC Morph Micro Appear 1+ ANISOCYTOSIS (NORMAL) 04/28/23 05:33 Sodium 128 mmol/L (135-145) L 05/03/23 08:00 Potassium 4.3 mmol/L (3.5-4.5) 05/03/23 08:00 Chloride 94 mmol/L (101-111) L 05/03/23 08:00 Carbon Dioxide 27 mmol/L (21-32) 05/03/23 08:00 Anion Gap 7.0 (6-13) 05/03/23 08:00 BUN 21 mg/dL (6-20) H 05/03/23 08:00 Creatinine 0.8 mg/dL (0.6-1.3) 05/03/23 08:00 Estimated GFR (MDRD) 94 (>89) 05/03/23 08:00 Glucose 101 mg/dL (74-104) 05/03/23 08:00 Lactic Acid 0.9 mmol/L (0.5-2.2) 04/24/23 04:57 Calcium 8.7 mg/dL (8.5-10.3) 05/03/23 08:00 Phosphorus 2.8 mg/dL (2.5-5.0) 05/03/23 08:00 Magnesium 1.7 mg/dL (1.7-2.3) 05/03/23 08:00 Total Bilirubin 0.7 mg/dL (0.2-1.0) 05/02/23 07:47 AST 15 IU/L (10-42) 05/02/23 07:47 ALT 14 IU/L (10-60) 05/02/23 07:47 Alkaline Phosphatase 60 IU/L (42-121) 05/02/23 07:47 Total Protein 6.5 g/dL (6.4-8.9) 05/02/23 07:47 Albumin 3.2 g/dL (3.2-5.5) 05/02/23 07:47 Globulin 3.3 g/dL (2.1-4.2) 05/02/23 07:47 Albumin/Globulin Ratio 1.0 (1.0-2.2) 05/02/23 07:47 Lipase < 10 U/L (11-82) L 04/23/23 22:13 Procalcitonin Immunoas 0.13 ng/mL (<0.5) 04/25/23 05:33 TSH 3.38 uIU/mL (0.34-5.60) 05/03/23 08:00 Cortisol AM Sample 14.9 ug/dL 05/03/23 08:00 Cortisol Resp to ACTH 05/03/23 11:00 Urine Color YELLOW 04/24/23 00:55 Urine Clarity CLEAR (CLEAR) 04/24/23 00:55 Urine pH 6.0 PH (5.0-7.5) 04/24/23 00:55 Ur Specific [place] 1.010 (1.002-1.030) 04/24/23 00:55 Urine Protein NEGATIVE mg/dL (NEGATIVE) 04/24/23 00:55 Urine Glucose (UA) NEGATIVE mg/dL (NEGATIVE) 04/24/23 00:55 Urine Ketones 15 mg/dL (NEGATIVE) H 04/24/23 00:55 Urine Occult Blood MODERATE (NEGATIVE) H 04/24/23 00:55 Urine Nitrite NEGATIVE (NEGATIVE) 04/24/23 00:55 Urine Bilirubin NEGATIVE (NEGATIVE) 04/24/23 00:55 Urine Urobilinogen 0.2 (NORMAL) E.U./dL (NORMAL) 04/24/23 00:55 Ur Leukocyte Esterase NEGATIVE (NEGATIVE) 04/24/23 00:55 Urine RBC 11-25 /HPF (0-5) H 04/24/23 00:55 Urine WBC 0-3 /HPF (0-3) 04/24/23 00:55 Ur Squamous Epith Cells RARE Squamous (<= Few) 04/24/23 00:55 Urine Bacteria None Seen /HPF (None Seen) 04/24/23 00:55 Ur Microscopic Review INDICATED 04/24/23 00:55 Urine Culture Comments NOT INDICATED 04/24/23 00:55 Urine Sodium 133.8 mmol/L 05/02/23 13:30 Nasal Adenovirus (PCR) NOT DETECTED 04/23/23 22:13 Nasal B. parapertussis DNA (PCR) NOT DETECTED 04/23/23 22:13 Nasal Coronavir 229E PCR NOT DETECTED 04/23/23 22:13 Nasal Coronavir HKU1 PCR NOT DETECTED 04/23/23 22:13 Nasal Coronavir NL63 PCR NOT DETECTED 04/23/23 22:13 Nasal Coronavir OC43 PCR NOT DETECTED 04/23/23 22:13 Nasal Enterovir/Rhinovir PCR DETECTED A 04/23/23 22:13 Nasal Influenza B PCR NOT DETECTED 04/23/23 22:13 Nasal Influenza A PCR NOT DETECTED 04/23/23 22:13 Nasal Parainfluen 1 PCR NOT DETECTED 04/23/23 22:13 Nasal Parainfluen 2 PCR NOT DETECTED 04/23/23 22:13 Nasal Parainfluen 3 PCR NOT DETECTED 04/23/23 22:13 Nasal Parainfluen 4 PCR NOT DETECTED 04/23/23 22:13 Nasal RSV (PCR) NOT DETECTED 04/23/23 22:13 Nasal B.pertussis DNA PCR NOT DETECTED 04/23/23 22:13 Nasal C.pneumoniae (PCR) NOT DETECTED 04/23/23 22:13 Robin Human Metapneumo PCR NOT DETECTED 04/23/23 22:13 Nasal M.pneumoniae (PCR) NOT DETECTED 04/23/23 22:13 Nasal SARS-CoV-2 (PCR) NOT DETECTED 04/23/23 22:13
[2023-05-04 06:54] LABS: CALCIUM 8.6 mg/dL (8.5-10.3)
--- NOTE | 2023-05-04 21:47 | PROVIDER PROGRESS NOTE ---
Assessment/Plan - Problem List (1) Hyponatremia Assessment/Plan: (1) Hyponatremia Assessment/Plan: Continue salt tablets to 1 g 3 times a day. daily. Continue free water restriction, maximum 1200 cc/day. Despite aggressive treatment, patient's serum sodium continues to range between 126 and 129. He appears to be at his baseline, however, he continues to be on a fluid restriction and if this is discontinued it is highly likely that his serum sodium will significantly decrease. Workup for hyponatremia which included repeating urine lites, TSH and cortisol are most consistent with SIADH. Patient continues to qualify for in hospital treatment given the fact that his serum sodium remains low at 127. Will attempt to discuss with the fashion merchandiser or make arrangements for patient to see 1 after his discharge. 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 Continue salt tablets to 1 g twice daily. Continue fluid restriction. (3) Orthostatic hypotension Assessment/Plan: Resolved (4) Fall at home Assessment/Plan: PT OT is recommending SNF. Falls may be related to orthostatic hypotension. (5) Community acquired pneumonia Assessment/Plan: Patient grew beta-hemolytic strep from his sputum.He has completed a course of Levofloxacin. (6) Infection due to beta-hemolytic Streptococcus Assessment/Plan: He has completed a course of levofloxacin. (7) Enterovirus/Rhinovirus infection Assessment/Plan: Plan: Symptomatic treatment for these problems is planned with Tylenol as needed, Afrin as needed, Cepacol lozenges. No specific treatment is available for these viruses, which was explained to pt and his spouse at bedside (8) S/P Craniotomy Assessment/Plan: Craniotomy performed for trigeminal neuralgia many years ago may have resulted in SIADH. (9) Hx of essential hypertension Assessment/Plan: Plan: Continue amlodipine and atenolol. Plan for discharge:assisted facility once he is medically cleared. - Current Meds Current Meds: Current Medications Generic Name Dose Route Start Last Admin Trade Name Freq PRN Reason Stop Dose Admin Acetaminophen 650 mg 04/25/23 02:12 05/04/23 20:29 Acetaminophen 325 Mg Tablet PO 650 mg Q4HR PRN Administration Pain or Fever > 38C (100.4F) Amlodipine Besylate 2.5 mg 04/25/23 21:00 03/03/24 20:29 Amlodipine 5 Mg Tablet PO 2.5 mg QPM MATTHEW Administration Atenolol 50 mg 04/25/23 09:00 05/04/23 08:11 Atenolol 25 Mg Tablet PO 50 mg DAILY MATTHEW Administration Enoxaparin Sodium 40 mg 04/25/23 09:00 05/04/23 08:10 Enoxaparin 40 Mg/0.4 Ml Syringe SUBQ 40 mg DAILY MATTHEW Administration Furosemide 40 mg 05/03/23 11:00 05/04/23 08:11 Furosemide 40 Mg Tablet PO 40 mg DAILY MATTHEW Administration Guaifenesin 600 mg 04/25/23 09:00 05/04/23 20:29 Guaifenesin 600 Mg Tablet PO 600 mg BID MATTHEW Administration Guaifenesin/Codeine Phosphate 5 ml 04/25/23 07:59 04/30/23 09:04 Guaifenesin/Codeine 5 Ml Udc PO 5 ml Q6HR PRN Administration Cough Lidocaine 1 patch 05/02/23 09:00 05/04/23 08:11 Lidocaine Patch 5% TOP 1 patch DAILY MATTHEW Administration Magnesium Oxide 400 mg 05/03/23 09:00 05/04/23 20:29 Magnesium Oxide 400 Mg Tablet PO 400 mg BID MATTHEW Administration Multi-Ingredient Ointment 1 applic 04/29/23 18:57 05/04/23 04:58 Zinc Oxide 20% Oint 30 Gm Tube TOP 1 applic PRN PRN Administration Skin Care Pantoprazole Sodium 40 mg 04/26/23 07:00 05/04/23 06:12 Pantoprazole 40 Mg Tablet PO 40 mg QDAC MATTHEW Administration Polyethylene Glycol 17 gm 04/29/23 09:00 05/04/23 08:11 Polyethylene Glycol 3350 17 Gm Packet PO 17 gm DAILY MATTHEW Administration Pravastatin Sodium 10 mg 04/25/23 21:00 05/04/23 20:29 Pravastatin 10 Mg Tablet PO 10 mg QPM MATTHEW Administration Sodium Chloride 10 ml 04/25/23 01:00 05/04/23 15:54 Sodium Chloride Flush 0.9% 10 Ml Syringe IVP 10 ml 0100,0900,1700 MATTHEW Administration Sodium Chloride 1 gm 05/02/23 14:00 05/04/23 20:28 Sodium Chloride 1 Gm Tablet PO 1 gm TID MATTHEW Administration - Lab Result Fish Bone Diagrams: 04/28/23 05:33 05/04/23 06:14 Subjective - Subjective Patient Reports: Other (Alert. He reports he feels his balance/strength has improved. He has no other complaints at this time.) Objective Vital Signs: Vital Signs - 24 hr 05/03/23 05/04/23 05/04/23 23:33 02:16 08:29 Temperature 36.6 C 36.6 C 36.9 C Heart Rate [ 68 79 65 Brachial] Respiratory 20 20 18 Rate Blood Pressure 132/62 H 130/82 H 141/69 H [Right Brachial artery] O2 Saturation 97 96 95 05/04/23 05/04/23 05/04/23 12:51 15:44 20:05 Temperature 36.7 C 36.8 C 36.8 C Heart Rate [ 66 64 64 Brachial] Respiratory 16 24 24 Rate Blood Pressure 144/78 H 146/76 H 157/78 H [Right Brachial artery] O2 Saturation 97 97 96 Oxygen O2 Source Room air Oxygen Flow Rate 2 I&O (Last 24 Hrs): Intake and Output Totals x24h 05/02/23 05/03/23 05/04/23 23:59 23:59 23:59 Intake Total 980 1090 920 Output Total 1600 1005 990 Balance -620 85 -70 General: Alert, Oriented x3, No acute distress HEENT: Atraumatic Neck: Supple Lymphatic: no adenopathy Neuro: Alert, Disoriented, Non Focal Cardiovascular: Regular rate, Normal S1, Normal S2 Respiratory: Other (Good air exchange in all lung sanders no wheezing no crackles.) Abdomen: Normal bowel sounds, Soft, No tenderness Extremities: No cyanosis Skin: No rashes - Results Results: Laboratory Results WBC 6.9 x10^3/uL (4.8-10.8) 04/28/23 05:33 RBC 3.81 10^6/uL (4.70-6.10) L 04/28/23 05:33 Hgb 12.4 g/dL (14.0-18.0) L 04/28/23 05:33 Hct 35.4 % (42.0-52.0) L 04/28/23 05:33 MCV 92.9 fL (80.0-94.0) 04/28/23 05:33 MCH 32.5 pg (27.0-31.0) H 04/28/23 05:33 MCHC 35.0 g/dL (32.0-36.0) 04/28/23 05:33 RDW 13.9 % (12.0-15.0) 04/28/23 05:33 Plt Count 265 10^3/uL (130-450) 04/28/23 05:33 MPV 9.2 fL (7.4-11.4) 04/28/23 05:33 Neut # (Auto) 4.9 10^3/uL (1.5-6.6) 04/28/23 05:33 Lymph # (Auto) 0.7 10^3/uL (1.5-3.5) L 04/28/23 05:33 [place] # (Auto) 0.7 10^3/uL (0.0-1.0) 04/28/23 05:33 Eos # (Auto) 0.3 10^3/uL (0.0-0.7) 04/28/23 05:33 Baso # (Auto) 0.0 10^3/uL (0.0-0.1) 04/28/23 05:33 Absolute Nucleated RBC 0.00 x10^3/uL 04/28/23 05:33 Total Counted 100 04/25/23 05:33 Band Neuts % (Manual) Not Reportable 04/28/23 05:33 Abnorm Lymph % (Manual) Not Reportable 04/28/23 05:33 Nucleated RBC % 0.0 /100WBC 04/28/23 05:33 Neutrophils # (Manual) Not Reportable 04/28/23 05:33 Lymphocytes # (Manual) Not Reportable 04/28/23 05:33 Monocytes # (Manual) Not Reportable 04/28/23 05:33 Eosinophils # (Manual) Not Reportable 04/28/23 05:33 Basophils # (Manual) Not Reportable 04/28/23 05:33 Differential Comment MANUAL=AUTO DIFF 04/28/23 05:33 Manual Slide Review Indicated 04/26/23 05:34 WBC Morphology 1+ TOXIC GRANULATION (NORMAL) 04/23/23 22:13 Platelet Estimate NORMAL (130-450,000) (NORMAL) 04/28/23 05:33 Platelet Morphology NORMAL APPEARANCE (NORMAL) 04/28/23 05:33 RBC Morph Micro Appear 1+ ANISOCYTOSIS (NORMAL) 04/28/23 05:33 Sodium 127 mmol/L (135-145) L 05/04/23 06:14 Potassium 4.0 mmol/L (3.5-4.5) 05/04/23 06:14 Chloride 95 mmol/L (101-111) L 05/04/23 06:14 Carbon Dioxide 28 mmol/L (21-32) 05/04/23 06:14 Anion Gap 4.0 (6-13) L 05/04/23 06:14 BUN 23 mg/dL (6-20) H 05/04/23 06:14 Creatinine 1.0 mg/dL (0.6-1.3) 05/04/23 06:14 Estimated GFR (MDRD) 72 (>89) L 05/04/23 06:14 Glucose 104 mg/dL (74-104) 05/04/23 06:14 Lactic Acid 0.9 mmol/L (0.5-2.2) 04/24/23 04:57 Calcium 8.6 mg/dL (8.5-10.3) 05/04/23 06:14 Phosphorus 2.8 mg/dL (2.5-5.0) 05/03/23 08:00 Magnesium 1.7 mg/dL (1.7-2.3) 05/03/23 08:00 Total Bilirubin 0.7 mg/dL (0.2-1.0) 05/02/23 07:47 AST 15 IU/L (10-42) 05/02/23 07:47 ALT 14 IU/L (10-60) 05/02/23 07:47 Alkaline Phosphatase 60 IU/L (42-121) 05/02/23 07:47 Total Protein 6.5 g/dL (6.4-8.9) 05/02/23 07:47 Albumin 3.2 g/dL (3.2-5.5) 05/02/23 07:47 Globulin 3.3 g/dL (2.1-4.2) 05/02/23 07:47 Albumin/Globulin Ratio 1.0 (1.0-2.2) 05/02/23 07:47 Lipase < 10 U/L (11-82) L 04/23/23 22:13 Procalcitonin Immunoas 0.13 ng/mL (<0.5) 04/25/23 05:33 TSH 3.38 uIU/mL (0.34-5.60) 05/03/23 08:00 Cortisol AM Sample 14.9 ug/dL 05/03/23 08:00 Cortisol Resp to ACTH 05/03/23 11:00 Urine Color YELLOW 04/24/23 00:55 Urine Clarity CLEAR (CLEAR) 04/24/23 00:55 Urine pH 6.0 PH (5.0-7.5) 04/24/23 00:55 Ur Specific [place] 1.010 (1.002-1.030) 04/24/23 00:55 Urine Protein NEGATIVE mg/dL (NEGATIVE) 04/24/23 00:55 Urine Glucose (UA) NEGATIVE mg/dL (NEGATIVE) 04/24/23 00:55 Urine Ketones 15 mg/dL (NEGATIVE) H 04/24/23 00:55 Urine Occult Blood MODERATE (NEGATIVE) H 04/24/23 00:55 Urine Nitrite NEGATIVE (NEGATIVE) 04/24/23 00:55 Urine Bilirubin NEGATIVE (NEGATIVE) 04/24/23 00:55 Urine Urobilinogen 0.2 (NORMAL) E.U./dL (NORMAL) 04/24/23 00:55 Ur Leukocyte Esterase NEGATIVE (NEGATIVE) 04/24/23 00:55 Urine RBC 11-25 /HPF (0-5) H 04/24/23 00:55 Urine WBC 0-3 /HPF (0-3) 04/24/23 00:55 Ur Squamous Epith Cells RARE Squamous (<= Few) 04/24/23 00:55 Urine Bacteria None Seen /HPF (None Seen) 04/24/23 00:55 Ur Microscopic Review INDICATED 04/24/23 00:55 Urine Culture Comments NOT INDICATED 04/24/23 00:55 Urine Sodium 133.8 mmol/L 05/02/23 13:30 Nasal Adenovirus (PCR) NOT DETECTED 04/23/23 22:13 Nasal B. parapertussis DNA (PCR) NOT DETECTED 04/23/23 22:13 Nasal Coronavir 229E PCR NOT DETECTED 04/23/23 22:13 Nasal Coronavir HKU1 PCR NOT DETECTED 04/23/23 22:13 Nasal Coronavir NL63 PCR NOT DETECTED 04/23/23 22:13 Nasal Coronavir OC43 PCR NOT DETECTED 04/23/23 22:13 Nasal Enterovir/Rhinovir PCR DETECTED A 04/23/23 22:13 Nasal Influenza B PCR NOT DETECTED 04/23/23 22:13 Nasal Influenza A PCR NOT DETECTED 04/23/23 22:13 Nasal Parainfluen 1 PCR NOT DETECTED 04/23/23 22:13 Nasal Parainfluen 2 PCR NOT DETECTED 04/23/23 22:13 Nasal Parainfluen 3 PCR NOT DETECTED 04/23/23 22:13 Nasal Parainfluen 4 PCR NOT DETECTED 04/23/23 22:13 Nasal RSV (PCR) NOT DETECTED 04/23/23 22:13 Nasal B.pertussis DNA PCR NOT DETECTED 04/23/23 22:13 Nasal C.pneumoniae (PCR) NOT DETECTED 04/23/23 22:13 [place] Human Metapneumo PCR NOT DETECTED 04/23/23 22:13 Nasal M.pneumoniae (PCR) NOT DETECTED 04/23/23 22:13 Nasal SARS-CoV-2 (PCR) NOT DETECTED 04/23/23 22:13
[2023-05-05 06:28] LABS: CALCIUM 8.5 mg/dL (8.5-10.3); CREATININE 0.9 mg/dL (0.6-1.3); MAGNESIUM 1.7 mg/dL (1.7-2.3); PHOSPHORUS 2.6 mg/dL (2.5-5.0); POTASSIUM 4.1 mmol/L (3.5-4.5)
--- NOTE | 2023-05-05 15:43 | ANESTHESIA PROCEDURE NOTE ---
Anesth Central Line Template - Central Line Central Line Preparation: Consent Obtained, Time out completed, Ultrasound used, Sterile prep and drape Central line location: Right Basilic Central line type: PICC Single Lumen Central line catheter tip site resides: Superior vena cava (SVC) Central line aftercare: Secured, Placement confirmed, No pneumothorax, No complications, Bundle checklist complete, Pt tolerated well, Other Other Info/Details: Cath cut to 40. Threaded to hub, too short to elicit p-wave changes. PCR to confirm placement in SVC, ok to use. Cap aspirates and easily flushes blood at completion.
--- NOTE | 2023-05-05 16:15 | XRAY Report ---
PROCEDURE: Chest for Line Placement INDICATIONS: confirm PICC placement TECHNIQUE: One view of the chest was acquired. COMPARISON: CT chest 04/24/2023. FINDINGS: Surgical changes and devices: Right PICC line is present with distal tip projecting over the proxima l SVC. Lungs and pleura: No pleural effusions or pneumothorax. Lungs are clear. Mediastinum: Mediastinal contours appear normal. Heart size is normal. Bones and chest wall: No suspicious bony lesions. Overlying soft tissues appear unremarkable. IMPRESSION: Right PICC as above. Reviewed by: Francoise Carnes MD on 05/05/2023 4:14 PM PST Approved by: Francoise Carnes MD on 05/05/2023 4:14 PM PST Station ID: [id number]
--- NOTE | 2023-05-05 22:44 | PROVIDER PROGRESS NOTE ---
Assessment/Plan - Problem List (1) Hyponatremia Assessment/Plan: Continue salt tablets to 1 g 3 times a day. daily. Continue free water restriction, maximum 1200 cc/day. Despite aggressive treatment, patient's serum sodium continues to range between 126 and 129. He appears to be at his baseline, however, he continues to be on a fluid restriction and if this is discontinued it is highly likely that his serum sodium will significantly decrease. I have decreased his fluid restriction to 1800 mL/day. Workup for hyponatremia which included repeating urine lyetes TSH and cortisol are most consistent with SIADH. Patient continues to qualify for in hospital treatment given the fact that his serum sodium remains low at 127. Recommend a trial of 3% saline with goal of increasing serum sodium to 135/140 range. A PICC line was placed today. I have requested that pharmacy order some conivaptan. An echocardiogram has been ordered to evaluate for heart disease that may result in hyponatremia that does not appear to be responding to treatment. 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 Fluid restriction has been decreased because patient will not be able to continue this degree of fluid restriction as an outpatient. There is concerned that if patient were discharged to home with a serum sodium of 127 - 129, serum sodium were decreased to the point that patient would have mental status changes. (3) Orthostatic hypotension Assessment/Plan: Resolved (4) Fall at home Assessment/Plan: PT OT is recommending SNF. Falls may be related to orthostatic hypotension. (5) Community acquired pneumonia Assessment/Plan: Patient grew beta-hemolytic strep from his sputum.He has completed a course of Levofloxacin. (6) Infection due to beta-hemolytic Streptococcus Assessment/Plan: He has completed a course of levofloxacin. (7) Enterovirus/Rhinovirus infection Assessment/Plan: Plan: Resolving. Symptomatic treatment for these problems is planned with Tylenol as needed, Afrin as needed, Cepacol lozenges. No specific treatment is available for these viruses, which was explained to pt and his spouse at bedside (8) S/P Craniotomy Assessment/Plan: Craniotomy performed for trigeminal neuralgia many years ago may have resulted in SIADH. (9) Hx of essential hypertension Assessment/Plan: Plan: Continue amlodipine and atenolol. (10) Disposition Mr. Flaherty continues to qualify for inpatient hospital treatment with the moderate degree of hyponatremia. Plan for discharge:nursing home facility once he is medically cleared. - Current Meds Current Meds: Current Medications Generic Name Dose Route Start Last Admin Trade Name Freq PRN Reason Stop Dose Admin Acetaminophen 650 mg 04/25/23 02:12 05/05/23 22:15 Acetaminophen 325 Mg Tablet PO 650 mg Q4HR PRN Administration Pain or Fever > 38C (100.4F) Amlodipine Besylate 2.5 mg 04/25/23 21:00 05/05/23 22:06 Amlodipine 5 Mg Tablet PO 2.5 mg QPM MATTHEW Administration Atenolol 50 mg 04/25/23 09:00 05/05/23 08:12 Atenolol 25 Mg Tablet PO 50 mg DAILY MATTHEW Administration Enoxaparin Sodium 40 mg 04/25/23 09:00 05/05/23 08:04 Enoxaparin 40 Mg/0.4 Ml Syringe SUBQ 40 mg DAILY MATTHEW Administration Furosemide 40 mg 05/03/23 11:00 05/05/23 08:03 Furosemide 40 Mg Tablet PO 40 mg DAILY MATTHEW Administration Guaifenesin 600 mg 04/25/23 09:00 05/05/23 22:05 Guaifenesin 600 Mg Tablet PO 600 mg BID MATTHEW Administration Guaifenesin/Codeine Phosphate 5 ml 04/25/23 07:59 04/30/23 09:04 Guaifenesin/Codeine 5 Ml Udc PO 5 ml Q6HR PRN Administration Cough Lidocaine 1 patch 05/02/23 09:00 05/05/23 08:04 Lidocaine Patch 5% TOP 1 patch DAILY MATTHEW Administration Magnesium Oxide 400 mg 05/03/23 09:00 05/05/23 22:06 Magnesium Oxide 400 Mg Tablet PO 400 mg BID MATTHEW Administration Multi-Ingredient Ointment 1 applic 04/29/23 18:57 05/04/23 04:58 Zinc Oxide 20% Oint 30 Gm Tube TOP 1 applic PRN PRN Administration Skin Care Pantoprazole Sodium 40 mg 04/26/23 07:00 05/05/23 06:22 Pantoprazole 40 Mg Tablet PO 40 mg QDAC MATTHEW Administration Polyethylene Glycol 17 gm 04/29/23 09:00 05/05/23 08:04 Polyethylene Glycol 3350 17 Gm Packet PO 17 gm DAILY MATTHEW Administration Pravastatin Sodium 10 mg 04/25/23 21:00 05/05/23 22:06 Pravastatin 10 Mg Tablet PO 10 mg QPM MATTHEW Administration Sodium Chloride 10 ml 04/25/23 01:00 05/05/23 16:57 Sodium Chloride Flush 0.9% 10 Ml Syringe IVP 10 ml 0100,0900,1700 MATTHEW Administration Sodium Chloride 1 gm 05/02/23 14:00 05/05/23 22:06 Sodium Chloride 1 Gm Tablet PO 1 gm TID MATTHEW Administration - Lab Result Fish Bone Diagrams: 04/28/23 05:33 05/05/23 05:50 - Additional Planning My Orders: My Active Orders 05/05/23 14:19 PICC Line Care [RC] Q4H PICC Line Insert [RC] .ONCE 05/06/23 05:00 BMP - BASIC METABOLIC PANEL [CHEM] Routine MAGNESIUM [CHEM] Routine PHOSPHORUS [CHEM] Routine 05/06/23 07:00 Echo Transthoracic Complete [ECHO] Routine Subjective - Subjective Patient Reports: Other (Alert. Continues to complain of fatigue. Denies chest pain, abdominal pain dyspnea. No other complaints at this time.) Objective Vital Signs: Vital Signs - 24 hr 05/05/23 05/05/23 05/05/23 00:00 05:00 08:14 Temperature 36.8 C 36.7 C 36.8 C Heart Rate [ 67 67 Brachial] Heart Rate [ 67 Radial] Respiratory 20 20 18 Rate Blood Pressure 155/76 H 137/78 H 141/74 H [Right Brachial artery] O2 Saturation 96 97 97 05/05/23 05/05/23 05/05/23 12:24 15:41 20:22 Temperature 37.0 C 37 C 36.2 C L Heart Rate [ 70 61 Brachial] Heart Rate [ 69 Radial] Respiratory 20 20 17 Rate Blood Pressure 129/86 H 154/84 H 138/64 H [Right Brachial artery] O2 Saturation 100 98 96 Oxygen O2 Source Room air Oxygen Flow Rate 2 I&O (Last 24 Hrs): Intake and Output Totals x24h 05/03/23 05/04/23 05/05/23 23:59 23:59 23:59 Intake Total 1090 920 420 Output Total 1005 1090 775 Balance 85 -170 -355 General: Alert, Oriented x3, No acute distress HEENT: Atraumatic Neck: No thyromegaly Neuro: Alert, Non Focal Cardiovascular: Regular rate, Normal S1, Normal S2 Respiratory: Other (Good air exchange in all lung sanders no wheezing no crackles.) - Results Results: Laboratory Results WBC 6.9 x10^3/uL (4.8-10.8) 04/28/23 05:33 RBC 3.81 10^6/uL (4.70-6.10) L 04/28/23 05:33 Hgb 12.4 g/dL (14.0-18.0) L 04/28/23 05:33 Hct 35.4 % (42.0-52.0) L 04/28/23 05:33 MCV 92.9 fL (80.0-94.0) 04/28/23 05:33 MCH 32.5 pg (27.0-31.0) H 04/28/23 05:33 MCHC 35.0 g/dL (32.0-36.0) 04/28/23 05:33 RDW 13.9 % (12.0-15.0) 04/28/23 05:33 Plt Count 265 10^3/uL (130-450) 04/28/23 05:33 MPV 9.2 fL (7.4-11.4) 04/28/23 05:33 Neut # (Auto) 4.9 10^3/uL (1.5-6.6) 04/28/23 05:33 Lymph # (Auto) 0.7 10^3/uL (1.5-3.5) L 04/28/23 05:33 [place] # (Auto) 0.7 10^3/uL (0.0-1.0) 04/28/23 05:33 Eos # (Auto) 0.3 10^3/uL (0.0-0.7) 04/28/23 05:33 Baso # (Auto) 0.0 10^3/uL (0.0-0.1) 04/28/23 05:33 Absolute Nucleated RBC 0.00 x10^3/uL 04/28/23 05:33 Total Counted 100 04/25/23 05:33 Band Neuts % (Manual) Not Reportable 04/28/23 05:33 Abnorm Lymph % (Manual) Not Reportable 04/28/23 05:33 Nucleated RBC % 0.0 /100WBC 04/28/23 05:33 Neutrophils # (Manual) Not Reportable 04/28/23 05:33 Lymphocytes # (Manual) Not Reportable 04/28/23 05:33 Monocytes # (Manual) Not Reportable 04/28/23 05:33 Eosinophils # (Manual) Not Reportable 04/28/23 05:33 Basophils # (Manual) Not Reportable 04/28/23 05:33 Differential Comment MANUAL=AUTO DIFF 04/28/23 05:33 Manual Slide Review Indicated 04/26/23 05:34 WBC Morphology 1+ TOXIC GRANULATION (NORMAL) 04/23/23 22:13 Platelet Estimate NORMAL (130-450,000) (NORMAL) 04/28/23 05:33 Platelet Morphology NORMAL APPEARANCE (NORMAL) 04/28/23 05:33 RBC Morph Micro Appear 1+ ANISOCYTOSIS (NORMAL) 04/28/23 05:33 Sodium 127 mmol/L (135-145) L 05/05/23 05:50 Potassium 4.1 mmol/L (3.5-4.5) 05/05/23 05:50 Chloride 94 mmol/L (101-111) L 05/05/23 05:50 Carbon Dioxide 28 mmol/L (21-32) 05/05/23 05:50 Anion Gap 5.0 (6-13) L 05/05/23 05:50 BUN 24 mg/dL (6-20) H 05/05/23 05:50 Creatinine 0.9 mg/dL (0.6-1.3) 05/05/23 05:50 Estimated GFR (MDRD) 82 (>89) L 05/05/23 05:50 Glucose 99 mg/dL (74-104) 05/05/23 05:50 Lactic Acid 0.9 mmol/L (0.5-2.2) 04/24/23 04:57 Calcium 8.5 mg/dL (8.5-10.3) 05/05/23 05:50 Phosphorus 2.6 mg/dL (2.5-5.0) 05/05/23 05:50 Magnesium 1.7 mg/dL (1.7-2.3) 05/05/23 05:50 Total Bilirubin 0.7 mg/dL (0.2-1.0) 05/02/23 07:47 AST 15 IU/L (10-42) 05/02/23 07:47 ALT 14 IU/L (10-60) 05/02/23 07:47 Alkaline Phosphatase 60 IU/L (42-121) 05/02/23 07:47 Total Protein 6.5 g/dL (6.4-8.9) 05/02/23 07:47 Albumin 3.2 g/dL (3.2-5.5) 05/02/23 07:47 Globulin 3.3 g/dL (2.1-4.2) 05/02/23 07:47 Albumin/Globulin Ratio 1.0 (1.0-2.2) 05/02/23 07:47 Lipase < 10 U/L (11-82) L 04/23/23 22:13 Procalcitonin Immunoas 0.13 ng/mL (<0.5) 04/25/23 05:33 TSH 3.38 uIU/mL (0.34-5.60) 05/03/23 08:00 Cortisol AM Sample 14.9 ug/dL 05/03/23 08:00 Cortisol Resp to ACTH 05/03/23 11:00 Urine Color YELLOW 04/24/23 00:55 Urine Clarity CLEAR (CLEAR) 04/24/23 00:55 Urine pH 6.0 PH (5.0-7.5) 04/24/23 00:55 Ur Specific [place] 1.010 (1.002-1.030) 04/24/23 00:55 Urine Protein NEGATIVE mg/dL (NEGATIVE) 04/24/23 00:55 Urine Glucose (UA) NEGATIVE mg/dL (NEGATIVE) 04/24/23 00:55 Urine Ketones 15 mg/dL (NEGATIVE) H 04/24/23 00:55 Urine Occult Blood MODERATE (NEGATIVE) H 04/24/23 00:55 Urine Nitrite NEGATIVE (NEGATIVE) 04/24/23 00:55 Urine Bilirubin NEGATIVE (NEGATIVE) 04/24/23 00:55 Urine Urobilinogen 0.2 (NORMAL) E.U./dL (NORMAL) 04/24/23 00:55 Ur Leukocyte Esterase NEGATIVE (NEGATIVE) 04/24/23 00:55 Urine RBC 11-25 /HPF (0-5) H 04/24/23 00:55 Urine WBC 0-3 /HPF (0-3) 04/24/23 00:55 Ur Squamous Epith Cells RARE Squamous (<= Few) 04/24/23 00:55 Urine Bacteria None Seen /HPF (None Seen) 04/24/23 00:55 Ur Microscopic Review INDICATED 04/24/23 00:55 Urine Culture Comments NOT INDICATED 04/24/23 00:55 Urine Osmolality 583 mOsmol/kg (.) 05/02/23 13:30 Urine Sodium 133.8 mmol/L 05/02/23 13:30 Nasal Adenovirus (PCR) NOT DETECTED 04/23/23 22:13 Nasal B. parapertussis DNA (PCR) NOT DETECTED 04/23/23 22:13 Nasal Coronavir 229E PCR NOT DETECTED 04/23/23 22:13 Nasal Coronavir HKU1 PCR NOT DETECTED 04/23/23 22:13 Nasal Coronavir NL63 PCR NOT DETECTED 04/23/23 22:13 Nasal Coronavir OC43 PCR NOT DETECTED 04/23/23 22:13 Nasal Enterovir/Rhinovir PCR DETECTED A 04/23/23 22:13 Nasal Influenza B PCR NOT DETECTED 04/23/23 22:13 Nasal Influenza A PCR NOT DETECTED 04/23/23 22:13 Nasal Parainfluen 1 PCR NOT DETECTED 04/23/23 22:13 Nasal Parainfluen 2 PCR NOT DETECTED 04/23/23 22:13 Nasal Parainfluen 3 PCR NOT DETECTED 04/23/23 22:13 Nasal Parainfluen 4 PCR NOT DETECTED 04/23/23 22:13 Nasal RSV (PCR) NOT DETECTED 04/23/23 22:13 Nasal B.pertussis DNA PCR NOT DETECTED 04/23/23 22:13 Nasal C.pneumoniae (PCR) NOT DETECTED 04/23/23 22:13 Robin Human Metapneumo PCR NOT DETECTED 04/23/23 22:13 Nasal M.pneumoniae (PCR) NOT DETECTED 04/23/23 22:13 Nasal SARS-CoV-2 (PCR) NOT DETECTED 04/23/23 22:13
[2023-05-06 06:43] LABS: CALCIUM 8.6 mg/dL (8.5-10.3); CREATININE 0.8 mg/dL (0.6-1.3); MAGNESIUM 1.7 mg/dL (1.7-2.3); PHOSPHORUS 2.8 mg/dL (2.5-5.0); POTASSIUM 4.1 mmol/L (3.5-4.5)
--- NOTE | 2023-05-06 09:18 | PROVIDER PROGRESS NOTE ---
Assessment/Plan - Problem List (1) Hyponatremia Assessment/Plan: refractory likely secondary to SIADH vs Legionella pneumonia vs diarrhea related vs renal wasting Na hx of brain surgery, in 2013, at that time, he was noted having low Na. -check legionella urine antigen -check urine lytes daily for three days -defer 3% saline at this point -increase Nacl tab dose -continue free water restriction -follow up on BMP (2) Enterovirus infection Assessment/Plan: Resolved no further diarrhea (3) Orthostatic hypotension Assessment/Plan: improved, Bp stable -1d NS (4) Fall at home Assessment/Plan: deconditioning vs cerebella issue PT/OT - Current Meds Current Meds: Current Medications Generic Name Dose Route Start Last Admin Trade Name Freq PRN Reason Stop Dose Admin Acetaminophen 650 mg 04/25/23 02:12 05/05/23 22:15 Acetaminophen 325 Mg Tablet PO 650 mg Q4HR PRN Administration Pain or Fever > 38C (100.4F) Amlodipine Besylate 2.5 mg 04/25/23 21:00 05/05/23 22:06 Amlodipine 5 Mg Tablet PO 2.5 mg QPM MATTHEW Administration Atenolol 50 mg 04/25/23 09:00 05/06/23 08:12 Atenolol 25 Mg Tablet PO 50 mg DAILY MATTHEW Administration Enoxaparin Sodium 40 mg 04/25/23 09:00 05/05/23 08:04 Enoxaparin 40 Mg/0.4 Ml Syringe SUBQ 40 mg DAILY MATTHEW Administration Furosemide 40 mg 05/03/23 11:00 05/06/23 08:13 Furosemide 40 Mg Tablet PO 40 mg DAILY MATTHEW Administration Guaifenesin 600 mg 04/25/23 09:00 05/06/23 08:13 Guaifenesin 600 Mg Tablet PO 600 mg BID MATTHEW Administration Guaifenesin/Codeine Phosphate 5 ml 04/25/23 07:59 04/30/23 09:04 Guaifenesin/Codeine 5 Ml Udc PO 5 ml Q6HR PRN Administration Cough Lidocaine 1 patch 05/02/23 09:00 05/05/23 08:04 Lidocaine Patch 5% TOP 1 patch DAILY MATTHEW Administration Magnesium Oxide 400 mg 05/03/23 09:00 05/06/23 08:13 Magnesium Oxide 400 Mg Tablet PO 400 mg BID MATTHEW Administration Multi-Ingredient Ointment 1 applic 04/29/23 18:57 05/04/23 04:58 Zinc Oxide 20% Oint 30 Gm Tube TOP 1 applic PRN PRN Administration Skin Care Pantoprazole Sodium 40 mg 04/26/23 07:00 05/06/23 06:30 Pantoprazole 40 Mg Tablet PO 40 mg QDAC MATTHEW Administration Polyethylene Glycol 17 gm 04/29/23 09:00 05/06/23 08:19 Polyethylene Glycol 3350 17 Gm Packet PO 17 gm DAILY MATTHEW Administration Pravastatin Sodium 10 mg 04/25/23 21:00 05/05/23 22:06 Pravastatin 10 Mg Tablet PO 10 mg QPM MATTHEW Administration Sodium Chloride 10 ml 04/25/23 01:00 05/06/23 08:13 Sodium Chloride Flush 0.9% 10 Ml Syringe IVP 10 ml 0100,0900,1700 MATTHEW Administration Sodium Chloride 1 gm 05/02/23 14:00 05/06/23 06:30 Sodium Chloride 1 Gm Tablet PO 1 gm TID MATTHEW Administration - Lab Result Fish Bone Diagrams: 04/28/23 05:33 05/06/23 06:03 Subjective - Subjective Patient Reports: Other (frustrated with so many days hospital stay) Nursing Reports: No Complaints Objective Vital Signs: Vital Signs - 24 hr 05/05/23 05/05/23 05/05/23 12:24 15:41 20:22 Temperature 37.0 C 37 C 36.2 C L Heart Rate [ 70 61 Brachial] Heart Rate [ 69 Radial] Respiratory 20 20 17 Rate Blood Pressure [Left Brachial artery] Blood Pressure 129/86 H 154/84 H 138/64 H [Right Brachial artery] O2 Saturation 100 98 96 05/06/23 05/06/23 05/06/23 00:16 04:51 07:20 Temperature 36.7 C 36.7 C 36.3 C L Heart Rate [ 64 64 65 Brachial] Heart Rate [ Radial] Respiratory 16 16 18 Rate Blood Pressure 140/81 H 150/75 H 148/72 H [Left Brachial artery] Blood Pressure [Right Brachial artery] O2 Saturation 97 96 97 Oxygen O2 Source Room air Oxygen Flow Rate 2 I&O (Last 24 Hrs): Intake and Output Totals x24h 05/04/23 05/05/23 05/06/23 23:59 23:59 23:59 Intake Total 920 420 Output Total 1090 775 850 Balance -170 -355 -850 General: Alert, Oriented x3 HEENT: Atraumatic, PERRLA, EOMI Neck: No JVD Lymphatic: no adenopathy Neuro: Alert, Non Focal, CN 2-12 Grossly Intact Cardiovascular: Regular rate Respiratory: No respiratory distress, Breath sounds nml Abdomen: Normal bowel sounds Extremities: No clubbing, No edema Comments/Notes: lower back pressure injury - Results Results: Laboratory Results WBC 6.9 x10^3/uL (4.8-10.8) 04/28/23 05:33 RBC 3.81 10^6/uL (4.70-6.10) L 04/28/23 05:33 Hgb 12.4 g/dL (14.0-18.0) L 04/28/23 05:33 Hct 35.4 % (42.0-52.0) L 04/28/23 05:33 MCV 92.9 fL (80.0-94.0) 04/28/23 05:33 MCH 32.5 pg (27.0-31.0) H 04/28/23 05:33 MCHC 35.0 g/dL (32.0-36.0) 04/28/23 05:33 RDW 13.9 % (12.0-15.0) 04/28/23 05:33 Plt Count 265 10^3/uL (130-450) 04/28/23 05:33 MPV 9.2 fL (7.4-11.4) 04/28/23 05:33 Neut # (Auto) 4.9 10^3/uL (1.5-6.6) 04/28/23 05:33 Lymph # (Auto) 0.7 10^3/uL (1.5-3.5) L 04/28/23 05:33 [place] # (Auto) 0.7 10^3/uL (0.0-1.0) 04/28/23 05:33 Eos # (Auto) 0.3 10^3/uL (0.0-0.7) 04/28/23 05:33 Baso # (Auto) 0.0 10^3/uL (0.0-0.1) 04/28/23 05:33 Absolute Nucleated RBC 0.00 x10^3/uL 04/28/23 05:33 Total Counted 100 04/25/23 05:33 Band Neuts % (Manual) Not Reportable 04/28/23 05:33 Abnorm Lymph % (Manual) Not Reportable 04/28/23 05:33 Nucleated RBC % 0.0 /100WBC 04/28/23 05:33 Neutrophils # (Manual) Not Reportable 04/28/23 05:33 Lymphocytes # (Manual) Not Reportable 04/28/23 05:33 Monocytes # (Manual) Not Reportable 04/28/23 05:33 Eosinophils # (Manual) Not Reportable 04/28/23 05:33 Basophils # (Manual) Not Reportable 04/28/23 05:33 Differential Comment MANUAL=AUTO DIFF 04/28/23 05:33 Manual Slide Review Indicated 04/26/23 05:34 WBC Morphology 1+ TOXIC GRANULATION (NORMAL) 04/23/23 22:13 Platelet Estimate NORMAL (130-450,000) (NORMAL) 04/28/23 05:33 Platelet Morphology NORMAL APPEARANCE (NORMAL) 04/28/23 05:33 RBC Morph Micro Appear 1+ ANISOCYTOSIS (NORMAL) 04/28/23 05:33 Sodium 126 mmol/L (135-145) L 05/06/23 06:03 Potassium 4.1 mmol/L (3.5-4.5) 05/06/23 06:03 Chloride 95 mmol/L (101-111) L 05/06/23 06:03 Carbon Dioxide 24 mmol/L (21-32) 05/06/23 06:03 Anion Gap 7.0 (6-13) 05/06/23 06:03 BUN 20 mg/dL (6-20) 05/06/23 06:03 Creatinine 0.8 mg/dL (0.6-1.3) 05/06/23 06:03 Estimated GFR (MDRD) 94 (>89) 05/06/23 06:03 Glucose 101 mg/dL (74-104) 05/06/23 06:03 Lactic Acid 0.9 mmol/L (0.5-2.2) 04/24/23 04:57 Calcium 8.6 mg/dL (8.5-10.3) 05/06/23 06:03 Phosphorus 2.8 mg/dL (2.5-5.0) 05/06/23 06:03 Magnesium 1.7 mg/dL (1.7-2.3) 05/06/23 06:03 Total Bilirubin 0.7 mg/dL (0.2-1.0) 05/02/23 07:47 AST 15 IU/L (10-42) 05/02/23 07:47 ALT 14 IU/L (10-60) 05/02/23 07:47 Alkaline Phosphatase 60 IU/L (42-121) 05/02/23 07:47 Total Protein 6.5 g/dL (6.4-8.9) 05/02/23 07:47 Albumin 3.2 g/dL (3.2-5.5) 05/02/23 07:47 Globulin 3.3 g/dL (2.1-4.2) 05/02/23 07:47 Albumin/Globulin Ratio 1.0 (1.0-2.2) 05/02/23 07:47 Lipase < 10 U/L (11-82) L 04/23/23 22:13 Procalcitonin Immunoas 0.13 ng/mL (<0.5) 04/25/23 05:33 TSH 3.38 uIU/mL (0.34-5.60) 05/03/23 08:00 Cortisol AM Sample 14.9 ug/dL 05/03/23 08:00 Cortisol Resp to ACTH 05/03/23 11:00 Urine Color YELLOW 04/24/23 00:55 Urine Clarity CLEAR (CLEAR) 04/24/23 00:55 Urine pH 6.0 PH (5.0-7.5) 04/24/23 00:55 Ur Specific [place] 1.010 (1.002-1.030) 04/24/23 00:55 Urine Protein NEGATIVE mg/dL (NEGATIVE) 04/24/23 00:55 Urine Glucose (UA) NEGATIVE mg/dL (NEGATIVE) 04/24/23 00:55 Urine Ketones 15 mg/dL (NEGATIVE) H 04/24/23 00:55 Urine Occult Blood MODERATE (NEGATIVE) H 04/24/23 00:55 Urine Nitrite NEGATIVE (NEGATIVE) 04/24/23 00:55 Urine Bilirubin NEGATIVE (NEGATIVE) 04/24/23 00:55 Urine Urobilinogen 0.2 (NORMAL) E.U./dL (NORMAL) 04/24/23 00:55 Ur Leukocyte Esterase NEGATIVE (NEGATIVE) 04/24/23 00:55 Urine RBC 11-25 /HPF (0-5) H 04/24/23 00:55 Urine WBC 0-3 /HPF (0-3) 04/24/23 00:55 Ur Squamous Epith Cells RARE Squamous (<= Few) 04/24/23 00:55 Urine Bacteria None Seen /HPF (None Seen) 04/24/23 00:55 Ur Microscopic Review INDICATED 04/24/23 00:55 Urine Culture Comments NOT INDICATED 04/24/23 00:55 Urine Osmolality 583 mOsmol/kg (.) 05/02/23 13:30 Urine Sodium 133.8 mmol/L 05/02/23 13:30 Nasal Adenovirus (PCR) NOT DETECTED 04/23/23 22:13 Nasal B. parapertussis DNA (PCR) NOT DETECTED 04/23/23 22:13 Nasal Coronavir 229E PCR NOT DETECTED 04/23/23 22:13 Nasal Coronavir HKU1 PCR NOT DETECTED 04/23/23 22:13 Nasal Coronavir NL63 PCR NOT DETECTED 04/23/23 22:13 Nasal Coronavir OC43 PCR NOT DETECTED 04/23/23 22:13 Nasal Enterovir/Rhinovir PCR DETECTED A 04/23/23 22:13 Nasal Influenza B PCR NOT DETECTED 04/23/23 22:13 Nasal Influenza A PCR NOT DETECTED 04/23/23 22:13 Nasal Parainfluen 1 PCR NOT DETECTED 04/23/23 22:13 Nasal Parainfluen 2 PCR NOT DETECTED 04/23/23 22:13 Nasal Parainfluen 3 PCR NOT DETECTED 04/23/23 22:13 Nasal Parainfluen 4 PCR NOT DETECTED 04/23/23 22:13 Nasal RSV (PCR) NOT DETECTED 04/23/23 22:13 Nasal B.pertussis DNA PCR NOT DETECTED 04/23/23 22:13 Nasal C.pneumoniae (PCR) NOT DETECTED 04/23/23 22:13 Robin Human Metapneumo PCR NOT DETECTED 04/23/23 22:13 Nasal M.pneumoniae (PCR) NOT DETECTED 04/23/23 22:13 Nasal SARS-CoV-2 (PCR) NOT DETECTED 04/23/23 22:13 ABX Reporting Has patient been on IV antibiotics over the past 48 hours?: No Current Medications - Current Medications Current Medications: Active Medications Generic Name Dose Route Start Last Admin Trade Name Freq PRN Reason Stop Dose Admin Acetaminophen 650 mg 04/25/23 02:12 05/06/23 16:44 Acetaminophen 325 Mg Tablet PO 650 mg Q4HR PRN Administration Pain or Fever > 38C (100.4F) Amlodipine Besylate 2.5 mg 04/25/23 21:00 05/06/23 21:09 Amlodipine 5 Mg Tablet PO 2.5 mg QPM AMTTHEW Administration Atenolol 50 mg 04/25/23 09:00 05/06/23 08:12 Atenolol 25 Mg Tablet PO 50 mg DAILY MATTHEW Administration Enoxaparin Sodium 40 mg 04/25/23 09:00 05/06/23 09:41 Enoxaparin 40 Mg/0.4 Ml Syringe SUBQ 40 mg DAILY MATTHEW Administration Guaifenesin 600 mg 04/25/23 09:00 05/06/23 21:09 Guaifenesin 600 Mg Tablet PO 600 mg BID MATTHEW Administration Guaifenesin/Codeine Phosphate 5 ml 04/25/23 07:59 04/30/23 09:04 Guaifenesin/Codeine 5 Ml Udc PO 5 ml Q6HR PRN Administration Cough Lidocaine 1 patch 05/02/23 09:00 05/06/23 09:41 Lidocaine Patch 5% TOP 1 patch DAILY MATTHEW Administration Magnesium Oxide 400 mg 05/03/23 09:00 05/06/23 21:09 Magnesium Oxide 400 Mg Tablet PO 400 mg BID MATTHEW Administration Multi-Ingredient Ointment 1 applic 04/29/23 18:57 05/04/23 04:58 Zinc Oxide 20% Oint 30 Gm Tube TOP 1 applic PRN PRN Administration Skin Care Pantoprazole Sodium 40 mg 04/26/23 07:00 05/06/23 06:30 Pantoprazole 40 Mg Tablet PO 40 mg QDAC MATTHEW Administration Polyethylene Glycol 17 gm 04/29/23 09:00 05/06/23 08:19 Polyethylene Glycol 3350 17 Gm Packet PO 17 gm DAILY MATTHEW Administration Pravastatin Sodium 10 mg 04/25/23 21:00 05/06/23 21:09 Pravastatin 10 Mg Tablet PO 10 mg QPM MATTHEW Administration Sodium Chloride 10 ml 04/24/23 23:31 Sodium Chloride Flush 0.9% 10 Ml Syringe IVP PRN PRN NEEDED PER PROVIDER ORDERS Sodium Chloride 10 ml 04/25/23 01:00 05/06/23 16:45 Sodium Chloride Flush 0.9% 10 Ml Syringe IVP 10 ml 0100,0900,1700 MATTHEW Administration Sodium Chloride 2 gm 05/06/23 14:00 05/06/23 21:08 Sodium Chloride 1 Gm Tablet PO 2 gm TID MATTHEW Administration Trazodone HCl 25 mg 05/06/23 21:00 05/06/23 21:09 Trazodone 50 Mg Tablet PO 25 mg QPM MATTHEW Administration Doxazosin [Cardura] 4 mg PO DAILY 05/02/13 Simvastatin [Zocor] 5 mg PO DAILY 05/02/13 amLODIPine [Norvasc] 2.5 mg PO DAILY 05/02/13 atenoloL [Atenolol] 50 mg PO DAILY 05/02/13 Omeprazole 20 mg PO DAILY 04/25/23
[2023-05-06] MEDS: SODIUM CHLORIDE 1 GM TABLET PO SCH (15:04)
[2023-05-06] MEDS: traZODone 50 MG TABLET PO SCH (21:09)
[2023-05-07 06:43] LABS: BASOPHILS # (AUTO) 0.1 10^3/uL (0.0-0.1); EOSINOPHILS # (AUTO) 0.1 10^3/uL (0.0-0.7); EOSINOPHILS % (AUTO) 1.5 %; HCT - HEMATOCRIT 36.6 % (42.0-52.0); HGB - HEMOGLOBIN 12.5 g/dL (14.0-18.0); LYMPHOCYTES # (AUTO) 0.8 10^3/uL (1.5-3.5); LYMPHOCYTES % (AUTO) 14.8 %; MEAN CORPUSCULAR HEMOGLOBIN 32.1 pg (27.0-31.0); MEAN CORPUSCULAR HGB CONC 34.2 g/dL (32.0-36.0); MEAN CORPUSCULAR VOLUME 93.8 fL (80.0-94.0); MEAN PLATELET VOLUME 9.4 fL (7.4-11.4); MONOCYTES # (AUTO) 0.6 10^3/uL (0.0-1.0); MONOCYTES % (AUTO) 11.9 %; NEUTROPHILS # (AUTO) 3.6 10^3/uL (1.5-6.6); NEUTROPHILS % (AUTO) 68.9 %; PLT - PLATELET COUNT 257 10^3/uL (130-450); RED CELL DISTRIBUTION WIDTH 14.5 % (12.0-15.0); WHITE BLOOD COUNT 5.2 x10^3/uL (4.8-10.8)
[2023-05-07 06:50] LABS: CALCIUM 8.6 mg/dL (8.5-10.3); CREATININE 0.8 mg/dL (0.6-1.3); POTASSIUM 4.1 mmol/L (3.5-4.5)
--- NOTE | 2023-05-07 08:23 | PROVIDER PROGRESS NOTE ---
Assessment/Plan - Problem List (1) Hyponatremia Assessment/Plan: refractory Na still 127 Random Urine lytes daily for three days strict free water restriction (no free water) (3) Orthostatic hypotension Assessment/Plan: resolved (4) Fall at home Assessment/Plan: Deconditioning vs secondary to chronic hyponatrimia -PT/OT - Current Meds Current Meds: Current Medications Generic Name Dose Route Start Last Admin Trade Name Freq PRN Reason Stop Dose Admin Acetaminophen 650 mg 04/25/23 02:12 05/07/23 00:09 Acetaminophen 325 Mg Tablet PO 650 mg Q4HR PRN Administration Pain or Fever > 38C (100.4F) Amlodipine Besylate 2.5 mg 04/25/23 21:00 05/06/23 21:09 Amlodipine 5 Mg Tablet PO 2.5 mg QPM MATTHEW Administration Atenolol 50 mg 04/25/23 09:00 05/06/23 08:12 Atenolol 25 Mg Tablet PO 50 mg DAILY MATTHEW Administration Enoxaparin Sodium 40 mg 04/25/23 09:00 05/06/23 09:41 Enoxaparin 40 Mg/0.4 Ml Syringe SUBQ 40 mg DAILY MATTHEW Administration Guaifenesin 600 mg 04/25/23 09:00 05/06/23 21:09 Guaifenesin 600 Mg Tablet PO 600 mg BID MATTHEW Administration Guaifenesin/Codeine Phosphate 5 ml 04/25/23 07:59 04/30/23 09:04 Guaifenesin/Codeine 5 Ml Udc PO 5 ml Q6HR PRN Administration Cough Lidocaine 1 patch 05/02/23 09:00 05/06/23 09:41 Lidocaine Patch 5% TOP 1 patch DAILY MATTHEW Administration Magnesium Oxide 400 mg 05/03/23 09:00 05/06/23 21:09 Magnesium Oxide 400 Mg Tablet PO 400 mg BID MATTHEW Administration Multi-Ingredient Ointment 1 applic 04/29/23 18:57 05/04/23 04:58 Zinc Oxide 20% Oint 30 Gm Tube TOP 1 applic PRN PRN Administration Skin Care Pantoprazole Sodium 40 mg 04/26/23 07:00 05/07/23 06:18 Pantoprazole 40 Mg Tablet PO 40 mg QDAC MATTHEW Administration Polyethylene Glycol 17 gm 04/29/23 09:00 05/06/23 08:19 Polyethylene Glycol 3350 17 Gm Packet PO 17 gm DAILY MATTHEW Administration Pravastatin Sodium 10 mg 04/25/23 21:00 05/06/23 21:09 Pravastatin 10 Mg Tablet PO 10 mg QPM MATTHEW Administration Sodium Chloride 10 ml 04/25/23 01:00 05/07/23 00:11 Sodium Chloride Flush 0.9% 10 Ml Syringe IVP 10 ml 0100,0900,1700 MATTHEW Administration Sodium Chloride 2 gm 05/06/23 14:00 05/07/23 06:18 Sodium Chloride 1 Gm Tablet PO 2 gm TID MATTHEW Administration Trazodone HCl 25 mg 05/06/23 21:00 05/06/23 21:09 Trazodone 50 Mg Tablet PO 25 mg QPM MATTHEW Administration - Lab Result Fish Bone Diagrams: 05/07/23 06:17 05/07/23 06:17 - Additional Planning Condition/Complexity: Improved My Orders: My Active Orders 05/06/23 08:00 Miscellaneous Laboratory Order [LAB] ONCE 05/06/23 14:00 Sodium Chloride [Salt Tab] 2 gm PO TID 05/06/23 21:00 traZODone [Desyrel] 25 mg PO QPM 05/07/23 09:00 CHLORIDE,URINE RANDOM [UC] DAILY OSMOLALITY URINE [REFLAB] DAILY POTASSIUM,URINE [UC] DAILY SODIUM, URINE [UC] DAILY 05/08/23 05:00 BMP - BASIC METABOLIC PANEL [CHEM] DAILYLAB CBC [CBC - COMP BLD CT W/AUTO DIFF] [HEME] DAILYLAB 05/08/23 09:00 CHLORIDE,URINE RANDOM [UC] DAILY OSMOLALITY URINE [REFLAB] DAILY POTASSIUM,URINE [UC] DAILY SODIUM, URINE [UC] DAILY 05/09/23 05:00 BMP - BASIC METABOLIC PANEL [CHEM] DAILYLAB CBC [CBC - COMP BLD CT W/AUTO DIFF] [HEME] DAILYLAB 05/09/23 09:00 CHLORIDE,URINE RANDOM [UC] DAILY OSMOLALITY URINE [REFLAB] DAILY POTASSIUM,URINE [UC] DAILY SODIUM, URINE [UC] DAILY 05/10/23 05:00 BMP - BASIC METABOLIC PANEL [CHEM] DAILYLAB CBC [CBC - COMP BLD CT W/AUTO DIFF] [HEME] DAILYLAB 05/11/23 05:00 BMP - BASIC METABOLIC PANEL [CHEM] DAILYLAB CBC [CBC - COMP BLD CT W/AUTO DIFF] [HEME] DAILYLAB Consult/Specialty: Other (left message to patient's PCP Yecenia Coombs [phone], await for call back to discuss patient's case Patient will have an appointment next Fri with his PCP (will fax dsc summary to his PCP)) Plan Discussed with:: Patient Time Spent: 31-60 minutes Additional Planning Notes: Patient's sodium is 127 today, goal Na 130 for discharge. still undergoing hyponatrimia work up, and treatment Anticipate discharge in 2-3 days Objective Vital Signs: Vital Signs - 24 hr 05/06/23 05/06/23 05/06/23 11:51 15:34 20:00 Temperature 36.8 C 37.0 C 36.5 C Heart Rate [ 67 79 65 Brachial] Respiratory 18 18 16 Rate Blood Pressure 153/80 H 191/98 H 135/74 H [Left Brachial artery] O2 Saturation 97 98 97 05/06/23 05/07/23 23:30 05:13 Temperature 37 C 36.8 C Heart Rate [ 65 69 Brachial] Respiratory 17 18 Rate Blood Pressure 142/78 H 154/78 H [Left Brachial artery] O2 Saturation 96 97 Oxygen O2 Source Room air Oxygen Flow Rate 2 I&O (Last 24 Hrs): Intake and Output Totals x24h 05/05/23 05/06/23 05/07/23 23:59 23:59 23:59 Intake Total 420 320 Output Total 775 1600 425 [facility] -355 -1280 -425 - Results Results: Laboratory Results WBC 5.2 x10^3/uL (4.8-10.8) 05/07/23 06:17 RBC 3.90 10^6/uL (4.70-6.10) L 05/07/23 06:17 Hgb 12.5 g/dL (14.0-18.0) L 05/07/23 06:17 Hct 36.6 % (42.0-52.0) L 05/07/23 06:17 MCV 93.8 fL (80.0-94.0) 05/07/23 06:17 MCH 32.1 pg (27.0-31.0) H 05/07/23 06:17 MCHC 34.2 g/dL (32.0-36.0) 05/07/23 06:17 RDW 14.5 % (12.0-15.0) 05/07/23 06:17 Plt Count 257 10^3/uL (130-450) 05/07/23 06:17 MPV 9.4 fL (7.4-11.4) 05/07/23 06:17 Neut # (Auto) 3.6 10^3/uL (1.5-6.6) 05/07/23 06:17 Lymph # (Auto) 0.8 10^3/uL (1.5-3.5) L 05/07/23 06:17 [place] # (Auto) 0.6 10^3/uL (0.0-1.0) 05/07/23 06:17 Eos # (Auto) 0.1 10^3/uL (0.0-0.7) 05/07/23 06:17 Baso # (Auto) 0.1 10^3/uL (0.0-0.1) 05/07/23 06:17 Absolute Nucleated RBC 0.00 x10^3/uL 05/07/23 06:17 Total Counted 100 04/25/23 05:33 Band Neuts % (Manual) Not Reportable 04/28/23 05:33 Abnorm Lymph % (Manual) Not Reportable 04/28/23 05:33 Nucleated RBC % 0.0 /100WBC 05/07/23 06:17 Neutrophils # (Manual) Not Reportable 04/28/23 05:33 Lymphocytes # (Manual) Not Reportable 04/28/23 05:33 Monocytes # (Manual) Not Reportable 04/28/23 05:33 Eosinophils # (Manual) Not Reportable 04/28/23 05:33 Basophils # (Manual) Not Reportable 04/28/23 05:33 Differential Comment MANUAL=AUTO DIFF 04/28/23 05:33 Manual Slide Review Indicated 04/26/23 05:34 WBC Morphology 1+ TOXIC GRANULATION (NORMAL) 04/23/23 22:13 Platelet Estimate NORMAL (130-450,000) (NORMAL) 04/28/23 05:33 Platelet Morphology NORMAL APPEARANCE (NORMAL) 04/28/23 05:33 RBC Morph Micro Appear 1+ ANISOCYTOSIS (NORMAL) 04/28/23 05:33 Sodium 127 mmol/L (135-145) L 05/07/23 06:17 Potassium 4.1 mmol/L (3.5-4.5) 05/07/23 06:17 Chloride 95 mmol/L (101-111) L 05/07/23 06:17 Carbon Dioxide 27 mmol/L (21-32) 05/07/23 06:17 Anion Gap 5.0 (6-13) L 05/07/23 06:17 BUN 18 mg/dL (6-20) 05/07/23 06:17 Creatinine 0.8 mg/dL (0.6-1.3) 05/07/23 06:17 Estimated GFR (MDRD) 94 (>89) 05/07/23 06:17 Glucose 99 mg/dL (74-104) 05/07/23 06:17 Lactic Acid 0.9 mmol/L (0.5-2.2) 04/24/23 04:57 Calcium 8.6 mg/dL (8.5-10.3) 05/07/23 06:17 Phosphorus 2.8 mg/dL (2.5-5.0) 05/06/23 06:03 Magnesium 1.7 mg/dL (1.7-2.3) 05/06/23 06:03 Total Bilirubin 0.7 mg/dL (0.2-1.0) 05/02/23 07:47 AST 15 IU/L (10-42) 05/02/23 07:47 ALT 14 IU/L (10-60) 05/02/23 07:47 Alkaline Phosphatase 60 IU/L (42-121) 05/02/23 07:47 Total Protein 6.5 g/dL (6.4-8.9) 05/02/23 07:47 Albumin 3.2 g/dL (3.2-5.5) 05/02/23 07:47 Globulin 3.3 g/dL (2.1-4.2) 05/02/23 07:47 Albumin/Globulin Ratio 1.0 (1.0-2.2) 05/02/23 07:47 Lipase < 10 U/L (11-82) L 04/23/23 22:13 Procalcitonin Immunoas 0.13 ng/mL (<0.5) 04/25/23 05:33 TSH 3.38 uIU/mL (0.34-5.60) 05/03/23 08:00 Cortisol AM Sample 14.9 ug/dL 05/03/23 08:00 Cortisol Resp to ACTH 05/03/23 11:00 Urine Color YELLOW 04/24/23 00:55 Urine Clarity CLEAR (CLEAR) 04/24/23 00:55 Urine pH 6.0 PH (5.0-7.5) 04/24/23 00:55 Ur Specific [place] 1.010 (1.002-1.030) 04/24/23 00:55 Urine Protein NEGATIVE mg/dL (NEGATIVE) 04/24/23 00:55 Urine Glucose (UA) NEGATIVE mg/dL (NEGATIVE) 04/24/23 00:55 Urine Ketones 15 mg/dL (NEGATIVE) H 04/24/23 00:55 Urine Occult Blood MODERATE (NEGATIVE) H 04/24/23 00:55 Urine Nitrite NEGATIVE (NEGATIVE) 04/24/23 00:55 Urine Bilirubin NEGATIVE (NEGATIVE) 04/24/23 00:55 Urine Urobilinogen 0.2 (NORMAL) E.U./dL (NORMAL) 04/24/23 00:55 Ur Leukocyte Esterase NEGATIVE (NEGATIVE) 04/24/23 00:55 Urine RBC 11-25 /HPF (0-5) H 04/24/23 00:55 Urine WBC 0-3 /HPF (0-3) 04/24/23 00:55 Ur Squamous Epith Cells RARE Squamous (<= Few) 04/24/23 00:55 Urine Bacteria None Seen /HPF (None Seen) 04/24/23 00:55 Ur Microscopic Review INDICATED 04/24/23 00:55 Urine Culture Comments NOT INDICATED 04/24/23 00:55 Urine Osmolality 583 mOsmol/kg (.) 05/02/23 13:30 Urine Sodium 133.8 mmol/L 05/02/23 13:30 Nasal Adenovirus (PCR) NOT DETECTED 04/23/23 22:13 Nasal B. parapertussis DNA (PCR) NOT DETECTED 04/23/23 22:13 Nasal Coronavir 229E PCR NOT DETECTED 04/23/23 22:13 Nasal Coronavir HKU1 PCR NOT DETECTED 04/23/23 22:13 Nasal Coronavir NL63 PCR NOT DETECTED 04/23/23 22:13 Nasal Coronavir OC43 PCR NOT DETECTED 04/23/23 22:13 Nasal Enterovir/Rhinovir PCR DETECTED A 04/23/23 22:13 Nasal Influenza B PCR NOT DETECTED 04/23/23 22:13 Nasal Influenza A PCR NOT DETECTED 04/23/23 22:13 Nasal Parainfluen 1 PCR NOT DETECTED 04/23/23 22:13 Nasal Parainfluen 2 PCR NOT DETECTED 04/23/23 22:13 Nasal Parainfluen 3 PCR NOT DETECTED 04/23/23 22:13 Nasal Parainfluen 4 PCR NOT DETECTED 04/23/23 22:13 Nasal RSV (PCR) NOT DETECTED 04/23/23 22:13 Nasal B.pertussis DNA PCR NOT DETECTED 04/23/23 22:13 Nasal C.pneumoniae (PCR) NOT DETECTED 04/23/23 22:13 Robin Human Metapneumo PCR NOT DETECTED 04/23/23 22:13 Nasal M.pneumoniae (PCR) NOT DETECTED 04/23/23 22:13 Nasal SARS-CoV-2 (PCR) NOT DETECTED 04/23/23 22:13 ABX Reporting Has patient been on IV antibiotics over the past 48 hours?: No
[2023-05-07 11:18] LABS: SODIUM, URINE 120.3 mmol/L
[2023-05-08 04:34] LABS: POTASSIUM,URINE 37.9 mmol/L; SODIUM, URINE 124.8 mmol/L
[2023-05-08 04:58] LABS: BASOPHILS # (AUTO) 0.1 10^3/uL (0.0-0.1); EOSINOPHILS # (AUTO) 0.1 10^3/uL (0.0-0.7); EOSINOPHILS % (AUTO) 2.8 %; HGB - HEMOGLOBIN 12.7 g/dL (14.0-18.0); LYMPHOCYTES # (AUTO) 1.2 10^3/uL (1.5-3.5); LYMPHOCYTES % (AUTO) 23.3 %; MEAN CORPUSCULAR HEMOGLOBIN 32.3 pg (27.0-31.0); MEAN CORPUSCULAR HGB CONC 33.4 g/dL (32.0-36.0); MEAN CORPUSCULAR VOLUME 96.7 fL (80.0-94.0); MEAN PLATELET VOLUME 9.5 fL (7.4-11.4); MONOCYTES # (AUTO) 0.6 10^3/uL (0.0-1.0); MONOCYTES % (AUTO) 10.9 %; NEUTROPHILS % (AUTO) 60.4 %; PLT - PLATELET COUNT 254 10^3/uL (130-450); RED BLOOD COUNT 3.93 10^6/uL (4.70-6.10); RED CELL DISTRIBUTION WIDTH 14.5 % (12.0-15.0)
[2023-05-08 05:19] LABS: CALCIUM 8.8 mg/dL (8.5-10.3); CREATININE 0.9 mg/dL (0.6-1.3); POTASSIUM 4.4 mmol/L (3.5-4.5)
--- NOTE | 2023-05-08 08:56 | PROVIDER PROGRESS NOTE ---
Assessment/Plan - Problem List (1) Hyponatremia Assessment/Plan: improving Na 129 today -continue strict free water restriction -continue Nacl tab Anticipate sodium improved to over 130 tomorrow and plan for discharge patient to home with home health (2) Enterovirus infection Assessment/Plan: Resolved (3) Orthostatic hypotension Assessment/Plan: Resolved (4) Fall at home Assessment/Plan: Continue with PT OT Benefit with outpatient PT - Current Meds Current Meds: Current Medications Generic Name Dose Route Start Last Admin Trade Name Freq PRN Reason Stop Dose Admin Acetaminophen 650 mg 04/25/23 02:12 05/08/23 02:25 Acetaminophen 325 Mg Tablet PO 650 mg Q4HR PRN Administration Pain or Fever > 38C (100.4F) Amlodipine Besylate 2.5 mg 04/25/23 21:00 05/07/23 21:26 Amlodipine 5 Mg Tablet PO 2.5 mg QPM MATTHEW Administration Atenolol 50 mg 04/25/23 09:00 05/07/23 08:46 Atenolol 25 Mg Tablet PO 50 mg DAILY MATTHEW Administration Enoxaparin Sodium 40 mg 04/25/23 09:00 05/07/23 08:46 Enoxaparin 40 Mg/0.4 Ml Syringe SUBQ 40 mg DAILY MATTHEW Administration Guaifenesin 600 mg 04/25/23 09:00 05/07/23 21:27 Guaifenesin 600 Mg Tablet PO 600 mg BID MATTHEW Administration Guaifenesin/Codeine Phosphate 5 ml 04/25/23 07:59 04/30/23 09:04 Guaifenesin/Codeine 5 Ml Udc PO 5 ml Q6HR PRN Administration Cough Lidocaine 1 patch 05/02/23 09:00 05/07/23 08:45 Lidocaine Patch 5% TOP 1 patch DAILY MATTHEW Administration Magnesium Oxide 400 mg 05/03/23 09:00 05/07/23 21:27 Magnesium Oxide 400 Mg Tablet PO 400 mg BID MATTHEW Administration Multi-Ingredient Ointment 1 applic 04/29/23 18:57 05/08/23 02:16 Zinc Oxide 20% Oint 30 Gm Tube TOP 1 applic PRN PRN Administration Skin Care Pantoprazole Sodium 40 mg 04/26/23 07:00 05/08/23 06:00 Pantoprazole 40 Mg Tablet PO 40 mg QDAC MATTHEW Administration Polyethylene Glycol 17 gm 04/29/23 09:00 05/07/23 08:46 Polyethylene Glycol 3350 17 Gm Packet PO 17 gm DAILY MATTHEW Administration Pravastatin Sodium 10 mg 04/25/23 21:00 05/07/23 21:27 Pravastatin 10 Mg Tablet PO 10 mg QPM MATTHEW Administration Sodium Chloride 10 ml 04/25/23 01:00 05/07/23 21:28 Sodium Chloride Flush 0.9% 10 Ml Syringe IVP 10 ml 0100,0900,1700 MATTHEW Administration Sodium Chloride 2 gm 05/06/23 14:00 05/08/23 06:00 Sodium Chloride 1 Gm Tablet PO 2 gm TID MATTHEW Administration Trazodone HCl 25 mg 05/06/23 21:00 05/07/23 21:26 Trazodone 50 Mg Tablet PO 25 mg QPM MATTHEW Administration - Lab Result Fish Bone Diagrams: 05/08/23 04:22 05/08/23 04:22 - Diagnostic Imaging Results Diagnostic Imaging Results: Final report reviewed - Additional Planning Condition/Complexity: Improved My Orders: My Active Orders 05/07/23 10:52 OSMOLALITY URINE [REFLAB] DAILY 05/08/23 04:10 OSMOLALITY URINE [REFLAB] DAILY 05/09/23 05:00 BMP - BASIC METABOLIC PANEL [CHEM] DAILYLAB CBC [CBC - COMP BLD CT W/AUTO DIFF] [HEME] DAILYLAB 05/09/23 09:00 CHLORIDE,URINE RANDOM [UC] DAILY OSMOLALITY URINE [REFLAB] DAILY POTASSIUM,URINE [UC] DAILY SODIUM, URINE [UC] DAILY 05/10/23 05:00 BMP - BASIC METABOLIC PANEL [CHEM] DAILYLAB CBC [CBC - COMP BLD CT W/AUTO DIFF] [HEME] DAILYLAB 05/11/23 05:00 BMP - BASIC METABOLIC PANEL [CHEM] DAILYLAB CBC [CBC - COMP BLD CT W/AUTO DIFF] [HEME] DAILYLAB Plan Discussed with:: Patient Time Spent: 15-30 minutes Additional Planning Notes: Sodium level is not reach to goal of 130 yet Anticipate discharge in 1 to 2 days Subjective - Subjective Patient Reports: Feeling Better (craving for coffee Reports constipation), Constipation Objective Vital Signs: Vital Signs - 24 hr 05/07/23 05/07/23 05/07/23 11:30 15:57 20:26 Temperature 36.5 C 36.7 C 36.7 C Heart Rate [ 65 66 64 Brachial] Respiratory 18 14 16 Rate Blood Pressure 133/72 H 138/80 H 137/83 H [Left Brachial artery] O2 Saturation 97 96 97 05/07/23 05/08/23 05/08/23 23:07 04:31 08:28 Temperature 37.0 C 37.1 C 36.6 C Heart Rate [ 66 75 76 Brachial] Respiratory 16 16 18 Rate Blood Pressure 147/78 H 155/85 H 141/78 H [Left Brachial artery] O2 Saturation 97 96 96 Oxygen O2 Source Room air Oxygen Flow Rate 2 I&O (Last 24 Hrs): Intake and Output Totals x24h 05/06/23 05/07/23 05/08/23 23:59 23:59 23:59 Intake Total 320 440 Output Total 1600 1350 650 Balance -1280 -910 -650 General: Alert, Oriented x3 HEENT: PERRLA, EOMI Neck: Supple Cardiovascular: Regular rate Respiratory: Chest non-tender Extremities: No clubbing, No edema - Results Results: Laboratory Results WBC 5.0 x10^3/uL (4.8-10.8) 05/08/23 04:22 RBC 3.93 10^6/uL (4.70-6.10) L 05/08/23 04:22 Hgb 12.7 g/dL (14.0-18.0) L 05/08/23 04:22 Hct 38.0 % (42.0-52.0) L 05/08/23 04:22 MCV 96.7 fL (80.0-94.0) H 05/08/23 04:22 MCH 32.3 pg (27.0-31.0) H 05/08/23 04:22 MCHC 33.4 g/dL (32.0-36.0) 05/08/23 04:22 RDW 14.5 % (12.0-15.0) 05/08/23 04:22 Plt Count 254 10^3/uL (130-450) 05/08/23 04:22 MPV 9.5 fL (7.4-11.4) 05/08/23 04:22 Neut # (Auto) 3.0 10^3/uL (1.5-6.6) 05/08/23 04:22 Lymph # (Auto) 1.2 10^3/uL (1.5-3.5) L 05/08/23 04:22 [place] # (Auto) 0.6 10^3/uL (0.0-1.0) 05/08/23 04:22 Eos # (Auto) 0.1 10^3/uL (0.0-0.7) 05/08/23 04:22 Baso # (Auto) 0.1 10^3/uL (0.0-0.1) 05/08/23 04:22 Absolute Nucleated RBC 0.00 x10^3/uL 05/08/23 04:22 Total Counted 100 04/25/23 05:33 Band Neuts % (Manual) Not Reportable 04/28/23 05:33 Abnorm Lymph % (Manual) Not Reportable 04/28/23 05:33 Nucleated RBC % 0.0 /100WBC 05/08/23 04:22 Neutrophils # (Manual) Not Reportable 04/28/23 05:33 Lymphocytes # (Manual) Not Reportable 04/28/23 05:33 Monocytes # (Manual) Not Reportable 04/28/23 05:33 Eosinophils # (Manual) Not Reportable 04/28/23 05:33 Basophils # (Manual) Not Reportable 04/28/23 05:33 Differential Comment MANUAL=AUTO DIFF 04/28/23 05:33 Manual Slide Review Indicated 04/26/23 05:34 WBC Morphology 1+ TOXIC GRANULATION (NORMAL) 04/23/23 22:13 Platelet Estimate NORMAL (130-450,000) (NORMAL) 04/28/23 05:33 Platelet Morphology NORMAL APPEARANCE (NORMAL) 04/28/23 05:33 RBC Morph Micro Appear 1+ ANISOCYTOSIS (NORMAL) 04/28/23 05:33 Sodium 129 mmol/L (135-145) L 05/08/23 04:22 Potassium 4.4 mmol/L (3.5-4.5) 05/08/23 04:22 Chloride 96 mmol/L (101-111) L 05/08/23 04:22 Carbon Dioxide 27 mmol/L (21-32) 05/08/23 04:22 Anion Gap 6.0 (6-13) 05/08/23 04:22 BUN 23 mg/dL (6-20) H 05/08/23 04:22 Creatinine 0.9 mg/dL (0.6-1.3) 05/08/23 04:22 Estimated GFR (MDRD) 82 (>89) L 05/08/23 04:22 Glucose 98 mg/dL (74-104) 05/08/23 04:22 Lactic Acid 0.9 mmol/L (0.5-2.2) 04/24/23 04:57 Calcium 8.8 mg/dL (8.5-10.3) 05/08/23 04:22 Phosphorus 2.8 mg/dL (2.5-5.0) 05/06/23 06:03 Magnesium 1.7 mg/dL (1.7-2.3) 05/06/23 06:03 Total Bilirubin 0.7 mg/dL (0.2-1.0) 05/02/23 07:47 AST 15 IU/L (10-42) 05/02/23 07:47 ALT 14 IU/L (10-60) 05/02/23 07:47 Alkaline Phosphatase 60 IU/L (42-121) 05/02/23 07:47 Total Protein 6.5 g/dL (6.4-8.9) 05/02/23 07:47 Albumin 3.2 g/dL (3.2-5.5) 05/02/23 07:47 Globulin 3.3 g/dL (2.1-4.2) 05/02/23 07:47 Albumin/Globulin Ratio 1.0 (1.0-2.2) 05/02/23 07:47 Lipase < 10 U/L (11-82) L 04/23/23 22:13 Procalcitonin Immunoas 0.13 ng/mL (<0.5) 04/25/23 05:33 TSH 3.38 uIU/mL (0.34-5.60) 05/03/23 08:00 Cortisol AM Sample 14.9 ug/dL 05/03/23 08:00 Cortisol Resp to ACTH 05/03/23 11:00 Urine Color YELLOW 04/24/23 00:55 Urine Clarity CLEAR (CLEAR) 04/24/23 00:55 Urine pH 6.0 PH (5.0-7.5) 04/24/23 00:55 Ur Specific [place] 1.010 (1.002-1.030) 04/24/23 00:55 Urine Protein NEGATIVE mg/dL (NEGATIVE) 04/24/23 00:55 Urine Glucose (UA) NEGATIVE mg/dL (NEGATIVE) 04/24/23 00:55 Urine Ketones 15 mg/dL (NEGATIVE) H 04/24/23 00:55 Urine Occult Blood MODERATE (NEGATIVE) H 04/24/23 00:55 Urine Nitrite NEGATIVE (NEGATIVE) 04/24/23 00:55 Urine Bilirubin NEGATIVE (NEGATIVE) 04/24/23 00:55 Urine Urobilinogen 0.2 (NORMAL) E.U./dL (NORMAL) 04/24/23 00:55 Ur Leukocyte Esterase NEGATIVE (NEGATIVE) 04/24/23 00:55 Urine RBC 11-25 /HPF (0-5) H 04/24/23 00:55 Urine WBC 0-3 /HPF (0-3) 04/24/23 00:55 Ur Squamous Epith Cells RARE Squamous (<= Few) 04/24/23 00:55 Urine Bacteria None Seen /HPF (None Seen) 04/24/23 00:55 Ur Microscopic Review INDICATED 04/24/23 00:55 Urine Culture Comments NOT INDICATED 04/24/23 00:55 Urine Osmolality 583 mOsmol/kg (.) 05/02/23 13:30 Ur Random Chloride 116 mmol/L 05/08/23 04:10 Urine Sodium 124.8 mmol/L 05/08/23 04:10 Urine Potassium 37.9 mmol/L 05/08/23 04:10 Nasal Adenovirus (PCR) NOT DETECTED 04/23/23 22:13 Nasal B. parapertussis DNA (PCR) NOT DETECTED 04/23/23 22:13 Nasal Coronavir 229E PCR NOT DETECTED 04/23/23 22:13 Nasal Coronavir HKU1 PCR NOT DETECTED 04/23/23 22:13 Nasal Coronavir NL63 PCR NOT DETECTED 04/23/23 22:13 Nasal Coronavir OC43 PCR NOT DETECTED 04/23/23 22:13 Nasal Enterovir/Rhinovir PCR DETECTED A 04/23/23 22:13 Nasal Influenza B PCR NOT DETECTED 04/23/23 22:13 Nasal Influenza A PCR NOT DETECTED 04/23/23 22:13 Nasal Parainfluen 1 PCR NOT DETECTED 04/23/23 22:13 Nasal Parainfluen 2 PCR NOT DETECTED 04/23/23 22:13 Nasal Parainfluen 3 PCR NOT DETECTED 04/23/23 22:13 Nasal Parainfluen 4 PCR NOT DETECTED 04/23/23 22:13 Nasal RSV (PCR) NOT DETECTED 04/23/23 22:13 Nasal B.pertussis DNA PCR NOT DETECTED 04/23/23 22:13 Nasal C.pneumoniae (PCR) NOT DETECTED 04/23/23 22:13 Robin Human Metapneumo PCR NOT DETECTED 04/23/23 22:13 Nasal M.pneumoniae (PCR) NOT DETECTED 04/23/23 22:13 Nasal SARS-CoV-2 (PCR) NOT DETECTED 04/23/23 22:13 Miscellaneous Test COMMENT (.) 05/06/23 10:47 ABX Reporting Has patient been on IV antibiotics over the past 48 hours?: No
[2023-05-08] MEDS: LACTULOSE 10 GM /15 ML UDC PO SCH (13:13)
[2023-05-09 05:37] LABS: BASOPHILS # (AUTO) 0.1 10^3/uL (0.0-0.1); BASOPHILS % (AUTO) 1.2 %; EOSINOPHILS # (AUTO) 0.2 10^3/uL (0.0-0.7); EOSINOPHILS % (AUTO) 3.2 %; HCT - HEMATOCRIT 36.2 % (42.0-52.0); HGB - HEMOGLOBIN 12.3 g/dL (14.0-18.0); LYMPHOCYTES % (AUTO) 20.6 %; MEAN CORPUSCULAR HEMOGLOBIN 32.5 pg (27.0-31.0); MEAN CORPUSCULAR VOLUME 95.5 fL (80.0-94.0); MONOCYTES # (AUTO) 0.6 10^3/uL (0.0-1.0); MONOCYTES % (AUTO) 12.3 %; NEUTROPHILS # (AUTO) 3.1 10^3/uL (1.5-6.6); NEUTROPHILS % (AUTO) 61.5 %; PLT - PLATELET COUNT 217 10^3/uL (130-450); RED BLOOD COUNT 3.79 10^6/uL (4.70-6.10); RED CELL DISTRIBUTION WIDTH 14.6 % (12.0-15.0)
[2023-05-09 05:54] LABS: CALCIUM 8.7 mg/dL (8.5-10.3); CREATININE 0.8 mg/dL (0.6-1.3); POTASSIUM 4.3 mmol/L (3.5-4.5); URIC ACID 4.1 mg/dL (4.4-7.6)
--- NOTE | 2023-05-09 12:12 | Discharge Plan ---
Discharge Plan Problem Reviewed?: Yes Disposition: 06 Home Health Service Condition: Stable Prescriptions: traZODone [Desyrel] 25 mg PO QPM 30 Days #15 tab Magnesium Oxide [Mag Ox] 400 mg PO BID 14 Days #28 tab Diet: Regular (Please follow free water restriction. Please eat salty food as meal. (2g each meal for the next 7 days)) Activity Restrictions: Activity as Tolerated Shower Restrictions: No Driving Restrictions: No Weight Bearing: Full Weight Instruction Topics: Hyponatremia Dc, ED Viral Syndrome, Hyponatremia Dc Health Concerns: You have chronic hyponatremia, your sodium was 120 when you came, it has been very difficult to be corrected, you are able to achieve 131 on 05/09/2023. With free water restriction and salt tablet intake. Your urine sodium has been high over 40 in fact it has been in 120s. Your uric acid is low at 4.1. 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 Please follow-up with your PCP, and likely you will need a specialist further management, May consider urea or Triptans. Plan of Treatment: Please follow-up with PCP and further specialist consultation. Please follow free water restriction, Recommend you to have high intake of salt in your diet Care Goals: Avoid further falls if all possible. Regain your baseline functional status Assessment: Medically stable for discharge to home with home health Additional Instructions or Follow Up instructions: You had rhinovirus/enterovirus infection, also streptococcus pneumonia, you had a course of levofloxacin. During hospital stay your orthostatic vital signs was positive for a while, then it resolved along with improvement of hydration and improvement of sodium level. please avoid any meds that has side effect of orthostatic dizziness Follow-Up Care: Home Health - PT, Home Health - OT No Smoking: If you smoke, Please STOP! Call for help. Follow-up with: Noble Martin MD [Physician No Access] -
[2023-05-09 12:19] VITALS: BP 134/76; O2SAT 96
--- NOTE | 2023-05-09 12:37 | DISCHARGE SUMMARY ---
Discharge Summary Admit Date: 04/24/23 Discharge Date: 05/09/23 Discharging Provider: Keith Narvaez Primary Care Provider: Bg Code Status: Attempt Resuscitation Condition at Discharge: Stable Discharge Disposition: Home Health Service - DIAGNOSES Admission Diagnoses: Acute respirtory failure secondary to pneumonia, Chronic hyponatrimia Discharge Diagnoses with Status of Each Condition: Acute respiratory failure, resolved Pneumonia, resolved Chronic severe hyponatrimia, from SIADH, improved - HPI History of Present Illness: A 77yo M with hx of HTN, HLD, chronic hyponatremia (salt-wasting condition, etiology unclear), presented to the ER with cc of generalized weakness, cough , onset was 3 weeks ago, started while he was in [place]. He and his awere both sick. Both had diarrhea for a week. His recovered, he got worse. They cut short their trip and flew back. They drove from [place] to the [place], patient appeared too sick and his called 911. Patient was brought to the ED vis EMS, patient reports he has been having chills, no fever, no nausea or vomitting. Has SOB, cough. He has been feeling tired, weak, He has difficulty with gait stability/balance at baseline. desat to 89% on RA, was placed on 2L NC. - HOSPITAL COURSE Hospital Course: Patient was tested Rhinovirus/Enterovirus positive on admission, CXR showed sign of pneumonia. Patient was giving Levoquin and continue oxygen support for p neumonia and hypoxemic respiratory failure. which have been improved and patient completed antibiotic treatment course. Eventually, off oxygen. Pneumonia resolved. Patient feels well. On admission, patient's Na was 120, patient urine showed urine Na always >50, with peak of 158 while patient was on salt tab. His hyponatremia has been very challanging to be corrected, with salt tab and free water restriction it was still with Na 126-127. SIADH is diagnosed. A PICC line was placed, 3% saline was planed to be given. With concerns the risk of hypertonic saline use, the plan is cancelled. Patient was put on stricked free water restriction, along with 2g bid Patient's Na went up to 131. Patient work with PT/OT, appears very improved, recommends home with home health. Patient is discharged to home on 05/09/2027, to follow up with PCP - ALLERGIES Allergies/Adverse Reactions: Allergies Allergy/AdvReac Type Severity Reaction Status Date / Time Penicillins Allergy Severe Unknown Verified 04/23/23 22:15 - MEDICATIONS Home Medications: Ambulatory Orders Medication Instructions Recorded Confirmed Simvastatin [Zocor] 5 mg PO DAILY 05/02/13 04/24/23 amLODIPine [Norvasc] 2.5 mg PO DAILY 05/02/13 04/25/23 atenoloL [Atenolol] 50 mg PO DAILY 05/02/13 04/25/23 Omeprazole 20 mg PO DAILY 04/25/23 04/25/23 Lidocaine Patch 4% [Lidocaine Pain 1 patch TOP DAILY 10 Days #10 patch 05/09/23 Relief] Magnesium Oxide [Mag Ox] 400 mg PO BID 14 Days #28 tab 05/09/23 traZODone [Desyrel] 25 mg PO QPM 30 Days #15 tab 05/09/23 - PHYSICAL EXAM AT DISCHARGE General Appearance: positive: Alert Eyes Bilateral: positive: PERRL, EOMI ENT: positive: ENT inspection nml Neck: positive: Nml inspection Respiratory: positive: Chest non-tender, No respiratory distress Cardiovascular: positive: Regular rate & rhythm Peripheral Pulses: positive: 2+ Abdomen: positive: Non-tender, No distention Skin: positive: Color nml Extremities: positive: Non-tender, Full ROM Neurologic/Psychiatric: positive: Oriented x3 - LABS Result Diagrams: 05/09/23 05:30 05/09/23 05:30 - DIAGNOSTIC IMAGING Diagnostic Imaging Results: Final report reviewed - SEPSIS Current Stage of Sepsis: Ruled out - TIME SPENT Time Spent in Discharge (Minutes): 55
== END 2023-05-09 14:00 | disposition home health service (06) | DRG 193 ==
LOC: EDUNIT# → ED 22:02 → MS3 04-24 23:31 → MS2 04-26 16:40
PROVIDERS: ADMIT Student in an Organized Health Care Education/Training Program; ATTEND Internal Medicine
PROC: 02HV33Z Insertion of Infusion Device into Superior Vena Cava, Percutaneous Approach (ICD-10-PCS; principal; 2023-05-05)
DX: J18.9 Pneumonia, unspecified organism (principal); E87.1 Hypo-osmolality and hyponatremia; J15.4 Pneumonia due to other streptococci; J91.8 Pleural effusion in other conditions classified elsewhere; J96.01 Acute respiratory failure with hypoxia; E22.2 Syndrome of inappropriate secretion of antidiuretic hormone; M53.3 Sacrococcygeal disorders, not elsewhere classified; R29.6 Repeated falls; I95.1 Orthostatic hypotension; B97.89 Other viral agents as the cause of diseases classified elsewhere; B97.10 Unspecified enterovirus as the cause of diseases classified elsewhere; N28.89 Other specified disorders of kidney and ureter; R19.7 Diarrhea, unspecified; R49.0 Dysphonia; I10 Essential (primary) hypertension; E78.5 Hyperlipidemia, unspecified; R26.89 Other abnormalities of gait and mobility; Z91.81 History of falling; Z87.01 Personal history of pneumonia (recurrent); Z11.52 Encounter for screening for COVID-19; Z79.82 Long term (current) use of aspirin; Z86.69 Personal history of other diseases of the nervous system and sense organs; Z98.890 Other specified postprocedural states
CPT/HCPCS: 36415; 71045; 71275; 72192; 80048; 80053; 81001; 82436; 83605; 83690; 83735; 83935; 84100; 84133; 84145; 84295; 84300; 84443; 84550; 85025; 87040; 87070; 87077; 87205; 87449; 87633; 93307; 96361; 96365; 96366; 97110; 97116; 97162; 97166; 97530; 97535; 99285; A9270; C1751; J1650; Q9967; 81003; 81599; 82533; 87086

== ENCOUNTER 2023-05-20 10:33 | Outpatient (CLI) | payer MEDICARE ==
[2023-05-20 16:17] LABS: CALCIUM 9.1 mg/dL (8.5-10.3); POTASSIUM 4.4 mmol/L (3.5-4.5)
== END 2023-05-20 10:34 | disposition home or self-care (01) ==
LOC: LAB.S 10:33
DX: E87.1 Hypo-osmolality and hyponatremia (principal)
CPT/HCPCS: 36415; 80048

== ENCOUNTER 2023-05-27 11:22 | Outpatient (CLI) | payer MEDICARE ==
[2023-05-27 15:39] LABS: CALCIUM 9.2 mg/dL (8.5-10.3); POTASSIUM 4.6 mmol/L (3.5-4.5)
== END 2023-05-27 11:23 | disposition home or self-care (01) ==
LOC: LAB.S 11:22
PROVIDERS: ATTEND Registered Nurse
DX: E87.1 Hypo-osmolality and hyponatremia (principal)
CPT/HCPCS: 36415; 80048

== ENCOUNTER 2023-06-03 11:19 | Outpatient (CLI) | payer MEDICARE ==
[2023-06-03 15:18] LABS: CALCIUM 9.2 mg/dL (8.5-10.3); CREATININE 0.9 mg/dL (0.6-1.3); POTASSIUM 4.4 mmol/L (3.5-4.5)
== END 2023-06-03 11:20 | disposition home or self-care (01) ==
LOC: LAB.S 11:19
PROVIDERS: ATTEND Registered Nurse
DX: E87.1 Hypo-osmolality and hyponatremia (principal)
CPT/HCPCS: 36415; 80048

== ENCOUNTER 2023-06-17 10:21 | Outpatient (CLI) | payer MEDICARE ==
[2023-06-17 15:57] LABS: CALCIUM 9.1 mg/dL (8.5-10.3); CREATININE 1.1 mg/dL (0.6-1.3); POTASSIUM 4.4 mmol/L (3.5-4.5)
== END 2023-06-17 10:22 | disposition home or self-care (01) ==
LOC: LAB.S 10:21
PROVIDERS: ATTEND Registered Nurse
DX: E87.1 Hypo-osmolality and hyponatremia (principal)
CPT/HCPCS: 36415; 80048

== ENCOUNTER 2023-07-01 14:11 | Outpatient (CLI) | payer MEDICARE ==
[2023-07-01 20:23] LABS: CALCIUM 9.3 mg/dL (8.5-10.3); CREATININE 1.1 mg/dL (0.6-1.3); POTASSIUM 3.9 mmol/L (3.5-4.5)
== END 2023-07-01 14:12 | disposition home or self-care (01) ==
LOC: LAB.S 14:11
PROVIDERS: ATTEND Registered Nurse
DX: E87.1 Hypo-osmolality and hyponatremia (principal)
CPT/HCPCS: 36415; 80048

== ENCOUNTER 2023-07-10 11:12 | Outpatient (CLI) | payer MEDICARE ==
[2023-07-10 15:33] LABS: CALCIUM 9.4 mg/dL (8.5-10.3); POTASSIUM 4.4 mmol/L (3.5-4.5)
== END 2023-07-10 11:13 | disposition home or self-care (01) ==
LOC: LAB.S 11:12
PROVIDERS: ATTEND Registered Nurse
DX: E87.1 Hypo-osmolality and hyponatremia (principal)
CPT/HCPCS: 36415; 80048

== ENCOUNTER 2023-07-22 14:51 | Outpatient (CLI) | payer MEDICARE ==
[2023-07-22 20:12] LABS: CALCIUM 9.1 mg/dL (8.5-10.3); CREATININE 1.2 mg/dL (0.6-1.3); POTASSIUM 4.4 mmol/L (3.5-4.5)
== END 2023-07-22 14:52 | disposition home or self-care (01) ==
LOC: LAB.S 14:51
PROVIDERS: ATTEND Registered Nurse
DX: E87.1 Hypo-osmolality and hyponatremia (principal)
CPT/HCPCS: 36415; 80048

== ENCOUNTER 2023-08-07 11:24 | Outpatient (CLI) | payer MEDICARE ==
[2023-08-07 15:19] LABS: CALCIUM 9.2 mg/dL (8.5-10.3); CREATININE 1.1 mg/dL (0.6-1.3); POTASSIUM 4.5 mmol/L (3.5-4.5)
== END 2023-08-07 11:25 | disposition home or self-care (01) ==
LOC: LAB.S 11:24
PROVIDERS: ATTEND Registered Nurse
DX: E87.1 Hypo-osmolality and hyponatremia (principal)
CPT/HCPCS: 36415; 80048

== ENCOUNTER 2023-08-21 10:34 | Outpatient (CLI) | payer MEDICARE ==
[2023-08-21 15:14] LABS: BASOPHILS % (AUTO) 0.3 %; EOSINOPHILS # (AUTO) 0.1 10^3/uL (0.0-0.7); EOSINOPHILS % (AUTO) 1.2 %; HCT - HEMATOCRIT 45.7 % (42.0-52.0); HGB - HEMOGLOBIN 15.1 g/dL (14.0-18.0); LYMPHOCYTES # (AUTO) 0.8 10^3/uL (1.5-3.5); LYMPHOCYTES % (AUTO) 14.1 %; MEAN CORPUSCULAR HEMOGLOBIN 32.8 pg (27.0-31.0); MEAN CORPUSCULAR VOLUME 99.3 fL (80.0-94.0); MEAN PLATELET VOLUME 10.8 fL (7.4-11.4); MONOCYTES # (AUTO) 0.6 10^3/uL (0.0-1.0); NEUTROPHILS # (AUTO) 4.2 10^3/uL (1.5-6.6); NEUTROPHILS % (AUTO) 73.1 %; PLT - PLATELET COUNT 141 10^3/uL (130-450); RED CELL DISTRIBUTION WIDTH 12.5 % (12.0-15.0); WHITE BLOOD COUNT 5.8 x10^3/uL (4.8-10.8)
[2023-08-21 15:21] LABS: ALBUMIN 4.1 g/dL (3.2-5.5); ALBUMIN/GLOBULIN RATIO 1.6 (1.0-2.2); BILIRUBIN,TOTAL 0.5 mg/dL (0.2-1.0); CALCIUM 9.2 mg/dL (8.5-10.3); CREATININE 1.1 mg/dL (0.6-1.3); POTASSIUM 4.2 mmol/L (3.5-4.5); TOTAL PROTEIN 6.6 g/dL (6.4-8.9)
== END 2023-08-21 10:35 | disposition home or self-care (01) ==
LOC: LAB.S 10:34
PROVIDERS: ATTEND Internal Medicine Medical Oncology
DX: D47.2 Monoclonal gammopathy (principal)
CPT/HCPCS: 36415; 80053; 82784; 83521; 84155; 84165; 85025; 86334